=== PATIENT | male | born 1985 | race African-American/Black ===

== ENCOUNTER 2019-05-28 08:26 | Emergency (ER) | payer SELFPAY ==
--- NOTE | 2019-05-28 08:49 | ED.ABDPAIN ---
HPI - Abdominal Pain General Chief Complaint: Urogenital-Male <ARSALAN Wilburn Last Filed: 05/28/19 09:42> Stated Complaint: std check <ARSALAN Wilburn Last Filed: 05/28/19 09:42> Time Seen by Provider: 05/28/19 08:27 <ARSALAN Wilburn Last Filed: 05/28/19 09:42> Source: patient <ARSALAN Wilburn Last Filed: 05/28/19 09:42> Mode of arrival: ambulatory <ASRALAN Wilburn Last Filed: 05/28/19 09:42> Limitations: no limitations <ARSALAN Wilburn Last Filed: 05/28/19 09:42> History of Present Illness HPI narrative: Patient is a 33-year-old male who presents to emergency department for evaluation of sores to the tip of the penis that he noticed in the last day would like to be tested and treated for STDs denies history of STDs or similar occurrence in the past denies any pain or other complaints <ARSALAN Wilburn Last Filed: 05/28/19 09:42> Related Data Home Medications: Home Medications Medication Instructions Recorded Confirmed No Home Medications 05/28/19 05/28/19 <ARSALAN Wilburn Last Filed: 05/28/19 09:42> Allergies/Adverse Reactions: Allergies Allergy/AdvReac Type Severity Reaction Status Date / Time No Known Allergies Allergy Mild Verified 05/28/19 09:04 <ARSALAN Wilburn Last Filed: 05/28/19 09:42> Review of Systems Review of Systems: Narrative: CONSTITUTIONAL: Denies fever, chills, or sweats. EYES: Denies redness, or discharge. ENT: Denies rhinorrhea, congestion, sore throat, or otalgia. GASTROINTESTINAL: Denies abdominal pain, nausea, vomiting, or diarrhea. GENITOURINARY: Denies dysuria or hematuria. SKIN: Denies itching. MUSCULOSKELETAL: Denies back pain, joint pain, or myalgia. <ARSALAN Wilburn Last Filed: 05/28/19 09:42> Exam Narrative: Exam Narrative: GENERAL: Well-appearing, well-nourished, and in no acute distress. HEAD: Normocephalic, atraumatic. EYES: PERRLA and EOMI. ENT: Nares clear, no rhinorrhea or epistaxis. Mucous membranes moist. EXTREMITIES: Normal range of motion. No edema. SKIN: Warm. A few small bumps to the head of the penis noted NEURO: No focal deficits. Alert and oriented x3. PSYCH: Normal mood and affect. <ARSALAN Wilburn Last Filed: 05/28/19 09:42> Course Course Emergency Course: Patient in the room in no distress aware of case findings treatment plan and diagnosis agreeing to follow-up as directed <ARSALAN Wilburn Last Filed: 05/28/19 09:42> Vital Signs Vital signs: Vital Signs Temperature 36.4 C L 05/28/19 09:01 Pulse Rate 92 05/28/19 09:01 Respiratory Rate 16 05/28/19 09:01 Blood Pressure 158/99 H 05/28/19 09:01 Pulse Oximetry 100 05/28/19 09:01 Temperature 36.7 C 05/28/19 10:24 Pulse Rate 89 05/28/19 10:24 Respiratory Rate 16 05/28/19 10:24 Blood Pressure 151/89 H 05/28/19 10:24 Pulse Oximetry 97 05/28/19 10:24 <Devon Pollard PA-C - Last Filed: 05/28/19 09:42> Vital Signs Temperature 36.4 C L 05/28/19 09:01 Pulse Rate 92 05/28/19 09:01 Respiratory Rate 16 05/28/19 09:01 Blood Pressure 158/99 H 05/28/19 09:01 Pulse Oximetry 100 05/28/19 09:01 Temperature 36.7 C 05/28/19 10:24 Pulse Rate 89 05/28/19 10:24 Respiratory Rate 16 05/28/19 10:24 Blood Pressure 151/89 H 05/28/19 10:24 Pulse Oximetry 97 05/28/19 10:24 <Gwendolyn Moreno MD - Last Filed: 05/28/19 17:33> MDM - Abdominal Pain MDM Narrative Medical decision making narrative: Patient with nonspecific rash will be referred to primary care for further evaluation. Cultures were taken <ARSALAN Wilburn Last Filed: 05/28/19 09:42> Lab Data Labs: Lab Results 05/28/19 05/28/19 Range/Units 08:47 08:47 Urine Color Yellow (Yellow) Urine Appearance Clear (Clear) Urine pH 6.0 (5.0-9.0) Ur Specific [place] 1.015 (1.
[2019-05-28 09:01] VITALS: BP 158/99; PULSE 92; RESP 16; TEMP 36.4; O2SAT 100
[2019-05-28 09:26] LABS: Add Urine Microscopic? YES; Appearance Urine Clear (Clear); Bilirubin Urine Negative (Negative); Blood Urine 1+ (Negative); Color Urine Yellow (Yellow); Glucose Urine UA Negative (Negative); Ketones Urine Negative (Negative); Leukocyte Esterase Ur Negative LEU/UL (Negative); Mucus Urine Rare /lpf; Nitrate Urine Negative (Negative); Protein Urine Negative (Negative); RBC Urine 0-2 /hpf (0-2); Specific Grav Ur 1.015 (1.001-1.035); Urobilinogen Urine Negative mg/dL (<2.0); WBC Urine 0-3 /hpf
[2019-05-28] MEDS: cefTRIAXone 250 MG VIAL IM (09:27)
[2019-05-28] MEDS: AZITHROMYCIN 250 MG TABLET 1000 MG PO (09:27)
[2019-05-28 10:24] VITALS: BP 151/89; PULSE 89; RESP 16; TEMP 36.7; O2SAT 97
== END 2019-05-28 10:26 | disposition home or self-care (01) ==
LOC: ANHED 09:25
PROVIDERS: Emergency Medicine Emergency Medical Services; Emergency Provider Emergency Medicine
DX: N34.2 Other urethritis (principal)
CPT/HCPCS: 81001; 87491; 87591; 96372; 99283; A9270; J0696

== ENCOUNTER 2021-01-08 08:13 | Emergency (ER) | payer BC, SELFPAY ==
[2021-01-08 08:24] VITALS: BP 155/111; PULSE 101; RESP 16; TEMP 36.6; O2SAT 98
[2021-01-08 08:27] VITALS: BP 155/111; PULSE 101; RESP 16; TEMP 36.6; O2SAT 98
--- NOTE | 2021-01-08 08:28 | ED.LOWEXIN ---
HPI - Extremity Injury (Lower) General Chief Complaint: Extremity Injury, Lower Stated Complaint: gout Time Seen by Provider: 01/08/21 08:29 Source: patient Mode of arrival: ambulatory Limitations: no limitations History of Present Illness HPI Narrative: Amari Finnegan is a 35 yo male with a PMH of hypertension, gout, GERD, who comes to [facility] with pain in his right ankle. He states that the symptoms are exactly like his usual gout flareups and he has not been taking his allopurinol preventatively. He also is not taking his blood pressure medication regularly we had a discussion about the effect of blood pressure on his organs and the reason he is on maintenance allopurinol Related Data Home Medications Medication Instructions Recorded Confirmed allopurinol 100 mg PO BID 01/08/21 01/08/21 amlodipine 10 mg PO DAILY 01/08/21 01/08/21 atorvastatin 20 mg PO DAILY 01/08/21 01/08/21 famotidine 20 mg PO BID 01/08/21 01/08/21 hydrochlorothiazide 12.5 mg PO DAILY 01/08/21 01/08/21 losartan 100 mg PO DAILY 01/08/21 01/08/21 Allergies Allergy/AdvReac Type Severity Reaction Status Date / Time No Known Allergies Allergy Mild Verified 05/28/19 09:04 Review of Systems Review of Systems: CONSTITUTIONAL: Denies fever, chills, sweats. EYES: Denies visual changes, redness, discharge. ENT: Denies rhinorrhea, congestion, sore throat, otalgia. CARDIOVASCULAR: Denies chest pain, palpitations, edema. RESPIRATORY: Denies dyspnea, wheezing, cough GASTROINTESTINAL: Denies abdominal pain, nausea, vomiting, diarrhea. GENITOURINARY: Denies dysuria, hematuria, abnormal discharge SKIN: Denies rash or itching. NEUROLOGIC: Denies numbness, or focal weakness. PSYCHIATRIC: Denies anxiety or depression. Right foot pain PMFSH Past Medical History Medical History (Updated 01/08/21 @ 08:42 by Stacie Dave CNP) GERD (gastroesophageal reflux disease) Gout Hypertension Family History Family History (Updated 01/08/21 @ 08:37 by Stacie Dave CNP) Other Hypertension Social History Social History (Updated 01/08/21 @ 08:38 by Stacie Dave CNP) Smoking status: Never smoker Alcohol intake: current Alcohol use details: Drinks a shot after work Comments At time of signature, I agree with nursing past medical, surgical, social and family history. There is no relevant family history pertinent to the presenting complaint. Exam Narrative: GENERAL: This is a well-nourished, well-developed patient, in mild distress. HEAD: normocephalic, atraumatic. EYES: Sclera clear/white. Vision is grossly intact. EARS: External ears normal, Hearing grossly intact. NOSE: External nose normal without nasal discharge, nares without redness, no rhinorrhea. THROAT: Mucous membranes moist, NECK: Neck supple, CARDIOVASCULAR: Regular rate and rhythm without murmurs, gallops, or rubs. RESPIRATORY: Clear to auscultation. Breath sounds equal bilaterally. No wheezes, rales, or rhonchi. GASTROINTESTINAL: Abdomen soft, SKIN: warm, intact with no suspicious lesions or rash, good texture and turgor. NEURO: awake, alert, and oriented to person, place and time. There were no obvious focal neurologic abnormalities. Steady gait EXTREMITIES: Normal range of motion. Right ankle pain particularly in the medial side running to the back of ankle BACK: Nontender without deformity Course Course Emergency Course: [facility] will start on colchicine and discussed continued use of allopurinol and restarting his blood pressure medications Vital Signs Vital signs: Vital Signs Temperature 97.9 F 01/08/21 08:24 Pulse Rate 101 H 01/08/21 08:24 Respiratory Rate 16 01/08/21 08:24 Blood Pressure 155/111 H 01/08/21 08:24 Pulse Oximetry 98 01/08/21 08:24 Temperature 97.9 F 01/08/21 08:27 Pulse Rate 101 H 01/08/21 08:27 Respiratory Rate 16 01/08/21 08:27 Blood Pressure 155/111 H 01/08/21 08:27 P
== END 2021-01-08 08:48 | disposition home or self-care (01) ==
PROVIDERS: Emergency Provider Nurse Practitioner; PCP Family Medicine
DX: M10.9 Gout, unspecified (principal); K21.9 Gastro-esophageal reflux disease without esophagitis; I10 Essential (primary) hypertension
CPT/HCPCS: 99213; G0463

== ENCOUNTER 2021-08-19 20:27 | Observation (INO) | payer BC, SELFPAY ==
--- NOTE | ~2021-08-19 | XR_ITS ---
EXAMINATION: XR chest 2V 08/19/2021 20:49 INDICATION: Right-sided chest pain. Hypertension. PROCEDURE: 2 view chest COMPARISON: No prior studies for comparison. FINDINGS: The lungs are clear. The cardiomediastinal silhouette is within normal limits. There are no pleural effusions. There is no pneumothorax suspected. IMPRESSION: 1: NO ACUTE CARDIOPULMONARY DISEASE. Reviewed, dictated and finalized at location A.
--- NOTE | 2021-08-19 20:29 | ECG_ITS ---
Measurements Intervals [place] Rate: 85 P: 64 AL: 145 QRS: 51 QRSD: 97 T: 35 QT: 360 QTc: 429 Interpretive Statements SINUS RHYTHM NORMAL ECG Electronically Signed On 08-19-2021 20:41:46 CDT by Nabor Rodríguez D.O.
[2021-08-19 20:36] VITALS: BP 211/117; PULSE 78; RESP 18; TEMP 36.6; O2SAT 100
[2021-08-19 21:07] VITALS: BP 199/113; PULSE 89; RESP 20; O2SAT 100
[2021-08-19 21:09] LABS: Basophils Absolute Auto 0.1 K/mm3 (0.0-0.1); Basophils Percent Auto 0.5 % (0.2-1.2); Eosinophils Absolute Auto 0.5 K/mm3 (0-0.3); Eosinophils Percent Auto 4.6 % (0-4.4); Hematocrit 44.7 % (42.0-52.0); Hemoglobin 15.2 g/dL (14.0-18.0); Immature Granulocyte Absolute 0.03 K/mm3 (0.00-0.031); Immature Granulocyte Percent A 0.3 % (0-0.5); Lymphocytes Absolute Auto 2.31 K/mm3 (0.9-3.2); Mean Corpuscular Hemoglobin 30.6 pg (26-34); Mean Corpuscular Volume 90.1 fl (80-100); Mean Platelet Volume 10.7 fl (7.4-10.4); Monocytes Absolute Auto 0.9 K/mm3 (0.1-0.6); Monocytes Percent Auto 8.4 % (2.6-8.5); Neutrophils Absolute Auto 6.8 K/mm3 (1.3-6.7); Neutrophils Percent Auto 64.2 % (45.5-73.1); Platelet Count Result 248 k/mm3 (150-375); Red Blood Count 4.96 M/mm3 (4.6-6.20); Red Cell Distribution Width 13.8 % (11.5-14.5); White Blood Count 10.5 K/mm3 (4.5-10.0)
[2021-08-19 21:19] LABS: Alanine Aminotransferase 38 U/L (6-50); Albumin Level 4.5 g/dL (3.5-5.1); Alkaline Phosphatase 88 U/L (38-126); Anion Gap 5 mmol/L (8-16); Aspartate Amino Transferase 48 U/L (17-59); Bilirubin,Total 0.4 mg/dL (0.2-1.3); Blood Urea Nitrogen 16 mg/dL (9-20); Carbon Dioxide 30 mmol/L (22-30); Chloride 102 mmol/L (98-107); Estimated CRCL calculation 92 ml/min; Estimated Glomerular Filt Rate > 60; Glucose 117 mg/dL (65-110); Lipase 78 U/L (23-300); Potassium 4.4 mmol/L (3.4-5.0); Sodium 137 mmol/L (137-145)
[2021-08-19 21:20] LABS: INR 1.1; Prothrombin Time 14.1 Seconds (11.1-14.7)
[2021-08-19 21:21] LABS: Partial Thromboplastin Time 27.4 SECONDS (22.3-36.8)
[2021-08-19 21:33] LABS: Troponin I 0.051 ng/mL (0.000-0.034)
[2021-08-19] MEDS: ASPIRIN 81 MG CHEWABLE TABLET 324 MG PO (21:55)
[2021-08-19] MEDS: NITROGLYCERIN SL 0.4 MG TABLET SUBLINGUAL (21:55)
--- NOTE | 2021-08-19 22:05 | ED.CHESTPAIN ---
HPI - Chest Pain General Chief Complaint: Chest Pain Stated Complaint: chest pain Time Seen by Provider: 08/19/21 21:00 History of Present Illness HPI narrative: Patient is a 36-year-old male who presents ER with right-sided chest pain. Aching. No radiation to neck or shoulder. Ongoing for 1 day. Worsening with twisting. Was seen by an urgent care physician who prescribed him prednisone but has not yet taken it today. No alleviating factors other than rest. Does not feel it is worsened by exertion only by specific movements of his upper body. No history of heart disease. Patient with elevated blood pressures in the ER. Reports has history of hypertension has been noncompliant with medication. He had to have medications refilled today but has not taken them. Related Data Home Medications Medication Instructions Recorded Confirmed allopurinol 100 mg tablet 100 mg PO BID 01/08/21 08/20/21 amlodipine 10 mg tablet 10 mg PO DAILY 01/08/21 08/20/21 atorvastatin 20 mg tablet 20 mg PO DAILY 01/08/21 08/20/21 famotidine 20 mg tablet 20 mg PO BID 01/08/21 08/20/21 losartan 100 mg tablet 100 mg PO DAILY 01/08/21 08/20/21 ergocalciferol (vitamin D2) 1,250 1 cap PO WEEKLY 08/20/21 08/20/21 mcg (50,000 unit) capsule metoprolol tartrate 50 mg tablet 50 mg PO BID 08/20/21 08/20/21 Allergies Allergy/AdvReac Type Severity Reaction Status Date / Time No Known Allergies Allergy Mild Verified 08/19/21 21:06 Review of Systems Review of Systems: All systems reviewed & are unremarkable except as noted in HPI and below Constitutional: Constitutional: Denies chills, Denies fatigue and Denies fever(s) ENT: Denies nasal congestion and Denies sore throat Cardiovascular: Cardiovascular: Reports chest pain, Denies rapid heart rate and Denies radiating jaw, neck or arm pain Respiratory: Respiratory: Denies chest congestion, Denies cough and Denies dyspnea Gastrointestinal: Gastrointestinal: Denies abdominal pain, Denies nausea and Denies vomiting Musculoskeletal: Musculoskeletal: Denies myalgias, Denies arthralgias and Denies joint swelling Neurologic: Denies headache(s), Denies focal weakness and Denies numbness [facility] Past Medical History Medical History (Updated 08/19/21 @ 22:15 by Javi Estrella MD) GERD (gastroesophageal reflux disease) Gout Hypertension Surgical History Surgical History (Updated 08/19/21 @ 22:12 by Javi Estrella MD) No pertinent past surgical history Family History Family History (Updated 01/08/21 @ 08:37 by Stacie Dave CNP) Other Hypertension Social History Social History (Updated 01/08/21 @ 08:38 by Stacie Dave CNP) Smoking status: Never smoker Alcohol intake: current Drinks per week: 4 Alcohol use details: Drinks a shot after work Substance use: never Spiritual care concerns: No Exam Narrative: GENERAL: Well-appearing, well-nourished, and in no acute distress. HEAD: Normocephalic, atraumatic. ENT: Mucous membranes moist. CHEST: Clear to auscultation. No respiratory distress. No reproducible chest wall tenderness. HEART: Regular rate and rhythm. Normal peripheral pulses. ABDOMEN: Soft, nontender, nondistended, normal active bowel sounds. EXTREMITIES: Normal range of motion. No edema. SKIN: Warm, dry, no rash. NEURO: Alert and oriented x3. PSYCH: Normal mood and affect. Course Course Emergency Course: Patient resting comfortably. Informed of results. Nitroglycerin did not affect patient's chest discomfort but did drop blood pressure. Admit to hospitalist service and patient will receive one-time dose of Lovenox. I discussed case with Dr. House with cardiology, would recommend giving a dose of Coreg 3.125 mg this evening. Patient did receive aspirin. Vital Signs Vital signs: Vital Signs Temperature 97.8 F 08/19/21 20:36 Pulse Rate 78 08/19/21 20:36 Respiratory Rate 18 08/19/21 20:36 Blood Pressure 211/117 H 08/19/21 20:36
[2021-08-19 22:55] VITALS: BP 170/113; PULSE 82; RESP 19; O2SAT 100
[2021-08-19] MEDS: ENOXAPARIN 100 MG/ML SYRINGE 112 MG SUB-Q (22:56)
[2021-08-19] MEDS: carvediloL 3.125 MG TABLET PO (22:56)
--- NOTE | 2021-08-19 23:14 | PM.IMHP ---
H&P: HPI History of Present Illness Date/Time: 08/19/21 23:14 Chief Complaint: chest pain Narrative: 36-year-old male with past medical history significant for hypertension, off medications for the last month, is presenting with right-sided chest pain that feels achy and does not radiate. States he saw an urgent care physician who prescribed prednisone but he did not take this. He was told that his chest was simply inflamed. The chest pain continued and did not resolve at rest. He denies associated shortness of breath. No nausea vomiting or diarrhea. No fevers or chills. He states the reason he stopped taking his medications was because they made him feel weak and sometimes when he would get up in the morning he would feel lightheaded and fatigued. He had a hard time completing his day at work due to how fatigued the medications made him. He states he was on 3 pills but cannot remember the names of them. He states he can call his mom tomorrow and she can tell us the names of the medications he was supposed to be taking. He is agreeable to restarting blood pressure pills, but not does not want to be on the 1 that made him feel fatigued. Review of Systems Review of Systems: Twelve point review systems was done and was negative except as noted in HPI PMFSH Past Medical History Medical History (Updated 08/19/21 @ 22:15 by Javi Estrella MD) GERD (gastroesophageal reflux disease) Gout Hypertension Surgical History Surgical History (Updated 08/19/21 @ 22:12 by Javi Estrella MD) No pertinent past surgical history Family History Family History (Updated 01/08/21 @ 08:37 by Stacie Dave CNP) Other Hypertension Social History Social History (Updated 01/08/21 @ 08:38 by Stacie Dave CNP) Smoking status: Never smoker Alcohol intake: current Drinks per week: 4 Alcohol use details: Drinks a shot after work Substance use: never Spiritual care concerns: No Meds Home Medications and Allergies Home Medications Medication Instructions Recorded Confirmed Type allopurinol 100 mg tablet 100 mg PO BID 01/08/21 08/20/21 History amlodipine 10 mg tablet 10 mg PO DAILY 01/08/21 08/20/21 History atorvastatin 20 mg tablet 20 mg PO DAILY 01/08/21 08/20/21 History famotidine 20 mg tablet 20 mg PO BID 01/08/21 08/20/21 History losartan 100 mg tablet 100 mg PO DAILY 01/08/21 08/20/21 History ergocalciferol (vitamin D2) 1,250 1 cap PO WEEKLY 08/20/21 08/20/21 History mcg (50,000 unit) capsule metoprolol tartrate 50 mg tablet 50 mg PO BID 08/20/21 08/20/21 History Allergies Allergy/AdvReac Type Severity Reaction Status Date / Time No Known Allergies Allergy Mild Verified 08/19/21 21:06 Vital Signs Vital Signs - 24 hr 08/19/21 20:36 08/19/21 21:07 08/19/21 21:07 Temperature 97.8 F Pulse Rate 78 89 Respiratory Rate 18 20 Blood Pressure 211/117 H 199/113 H Pulse Oximetry 100 100 100 Oxygen Delivery Room Air Room Air 08/19/21 22:55 Temperature Pulse Rate 82 Respiratory Rate 19 Blood Pressure 170/113 H Pulse Oximetry 100 Oxygen Delivery Exam Narrative: General: Patient resting comfortably in bed, no acute distress HEENT: Atraumatic, normocephalic, mucous membranes moist CV: Regular rate and rhythm, S1, S2, no murmurs rubs or gallops noted Lungs: Clear to auscultation bilaterally, no rales or crackles noted, no wheezes, good air entry Abdomen: Soft, nontender, nondistended Extremities: Normal to inspection, no edema noted Skin: No rashes noted, no lesions or wounds seen Psych: Euthymic, normal affect Neuro: Cranial nerves 2-12 grossly intact, strength 5/5 upper and lower extremities noted H&P: Results Labs Labs: Short CBC 08/19/21 Range/Units 21:03 WBC 10.5 H (4.5-10.0) K/mm3 Hgb 15.2 (14.0-18.0) g/dL Hct 44.7 (42.0-52.0) % Plt Count 248 (150-375) k/mm3 [facility] 08/19/21 21:03 Sodium 137 Potassium 4.4 Chlorid
[2021-08-19 23:55] VITALS: BP 187/109; PULSE 83; RESP 16; TEMP 36.6; O2SAT 100; BMI 44.0
[2021-08-20] VITALS (18 sets, daily range): BP systolic 157–182; BP diastolic 93–117; PULSE 69–82; RESP 16–18; TEMP 36.4–37.1; O2SAT 97–100
--- NOTE | 2021-08-20 00:08 | ADMGEN ---
This patient, Amari Finnegan, was admitted to IMU Room 210-01. Patient/family oriented to hospital policies and general routines including ID bracelet, bed and alarms, visiting hours, pain management, procedures, bathroom and other care routines, personal items, smoking policy, room service/diet, and visiting hours. Information on how to activate the Rapid Response Team has been discussed. Patient/Family are encouraged to report perceived risks to care and to ask questions if they do not understand what they are told or what they should do.
[2021-08-20 01:48] LABS: Troponin I 0.064 ng/mL (0.000-0.034)
[2021-08-20] MEDS: ONDANSETRON INJ 4 MG/2 ML VIAL IV PUSH (02:34)
[2021-08-20 03:28] LABS: Troponin I 0.055 ng/mL (0.000-0.034)
--- NOTE | 2021-08-20 06:00 | ECHO_ITS ---
Patient Info Name: Amari Finnegan Age: 36 years : 1985 Gender: Male Ht: 67 in Wt: 281 lbs BSA: 2.52 m2 HR: 75 bpm BP: 157 / 93 mmHg Heart Rhythm: Sinus Rhythm Technical Quality: Fair Exam Date: 08/20/2021 7:32 AM Exam Location: [facility] Patient Status: Outpatient Admit Date: 08/19/2021 Staff Ordering Physician: Javi Estrella MD Informatica: Michelle Martin RDCS Attending Provider: Lakshmi Castelan DO Referring Physician: Sameer PERDEU; Exam Type: CA echo dop color flow w con Study Info Indications - cp Complete two-dimensional, color flow and Doppler transthoracic echocardiogram is performed with contrast to opacify the left ventricle and to improve the deliniation of the left ventricle endocardial borders. Contrast/Agitated Saline Contrast/Ag. Saline: Definity Amount: 4.00 ml Administered By: Michelle Martin RDCS Existing IV Access: Yes IV Access Condition: patent with no signs of infiltration Summary 1. Left ventricular chamber dimension is normal. 2. Definity contrast administered improved wall motion interpretation. 3. Left ventricular systolic function is normal, estimated at 60-65%. 4. The left ventricular diastolic function is normal. 5. E/e' 9 is minimally elevated. 6. No pulmonary hypertension, estimated pulmonary arterial systolic pressure is 18 mmHg. 7. There is trace pulmonic regurgitation. Left Ventricle E/e' 9 is minimally elevated. Definity contrast administered improved wall motion interpretation. Left ventricular chamber dimension is normal. Left ventricular systolic function is normal, estimated at 60-65%. The left ventricular diastolic function is normal. Right Ventricle Right ventricular systolic function is normal and with normal TAPSE 2.2 cm. Right ventricular chamber dimension is normal. Left Atria Left atrial chamber dimension is normal. Right Atria Right atrial chamber dimension is normal. Aortic Valve The aortic valve is trileaflet. There is no aortic valve stenosis. There is no aortic valve regurgitation. Pulmonic Valve There is trace pulmonic regurgitation. Mitral Valve There is no mitral valve stenosis. There is no mitral valve regurgitation. Tricuspid Valve There is no tricuspid valve regurgitation. No pulmonary hypertension, estimated pulmonary arterial systolic pressure is 18 mmHg. Pericardium/Pleural There is no pericardial effusion. Inferior Vena Cava Normal inferior vena cava with >50% collapse upon inspiration consistent with normal right atrial pressure, 5 mmHg. Aorta The aortic root size at the sinus of Valsalva is normal. Left Ventricular Outflow Tract Name Value Normal LVOT 2D LVOT Diameter 1.99 cm LVOT Doppler LVOT Peak Gradient 2 mmHg LVOT Mean Gradient 1 mmHg LVOT VTI 14.21 cm LVOT VTI/AV VTI Ratio 0.64 LVOT Stroke Volume 44.06 ml LVOT CO 3.00 l/min
[2021-08-20 07:52] LABS: Basophils Percent Auto 0.2 % (0.2-1.2); Eosinophils Absolute Auto 0.4 K/mm3 (0-0.3); Eosinophils Percent Auto 4.9 % (0-4.4); Hematocrit 42.6 % (42.0-52.0); Hemoglobin 14.4 g/dL (14.0-18.0); Immature Granulocyte Absolute 0.02 K/mm3 (0.00-0.031); Immature Granulocyte Percent A 0.2 % (0-0.5); Lymphocytes Absolute Auto 2.68 K/mm3 (0.9-3.2); Mean Corpuscular HGB Conc 33.8 g/dl (32-36); Mean Corpuscular Hemoglobin 30.6 pg (26-34); Mean Corpuscular Volume 90.4 fl (80-100); Mean Platelet Volume 10.8 fl (7.4-10.4); Monocytes Absolute Auto 0.7 K/mm3 (0.1-0.6); Monocytes Percent Auto 9.1 % (2.6-8.5); Neutrophils Absolute Auto 4.3 K/mm3 (1.3-6.7); Neutrophils Percent Auto 52.6 % (45.5-73.1); Platelet Count Result 218 k/mm3 (150-375); Red Blood Count 4.71 M/mm3 (4.6-6.20); Red Cell Distribution Width 14.1 % (11.5-14.5); White Blood Count 8.1 K/mm3 (4.5-10.0)
[2021-08-20 07:59] LABS: Alanine Aminotransferase 32 U/L (6-50); Albumin Level 3.6 g/dL (3.5-5.1); Alkaline Phosphatase 78 U/L (38-126); Anion Gap 6 mmol/L (8-16); Aspartate Amino Transferase 31 U/L (17-59); Bilirubin,Total 0.4 mg/dL (0.2-1.3); Blood Urea Nitrogen 14 mg/dL (9-20); Calcium 8.5 mg/dL (8.4-10.2); Carbon Dioxide 26 mmol/L (22-30); Chloride 105 mmol/L (98-107); Estimated CRCL calculation 107 ml/min; Estimated Glomerular Filt Rate > 60; Glucose 118 mg/dL (65-110); Sodium 137 mmol/L (137-145)
[2021-08-20] MEDS: PERFLUTREN LIPID MICROSPHERES 1.5 ML VIAL DILUTED TO 10 ML TOTAL VOLUME IV PUSH (08:15)
--- NOTE | 2021-08-20 08:16 | IVDEFINITY ---
Prior to administration of IV Definity the patient was educated on the risks and benefits of the imaging enhancing agent including potential adverse side effects. The patient verbalized understanding. Allergies were verified. No exclusion criteria were identified and at least one of the following inclusion criteria were met: 1) physician request, 2) patient technically difficult to image (per the [place] [employer]ocardi[employer] guidelines of two or more segments not discernable within the apical view), or 3) questionable left ventricular function. ?
[2021-08-20] MEDS: allopurinoL 100 MG TABLET PO ×2 (10:09→17:35)
[2021-08-20] MEDS: amLODIPine BESYLATE 5 MG TABLET 10 MG PO (10:09)
[2021-08-20] MEDS: ATORVASTATIN 20 MG TABLET PO (10:09)
[2021-08-20] MEDS: LOSARTAN POTASSIUM 100 MG TABLET PO (10:09)
[2021-08-20] MEDS: FAMOTIDINE 20 MG TABLET PO ×2 (10:09→20:30)
--- NOTE | 2021-08-20 10:11 | PM.CNCAR ---
Assessment and Plan Assessment and plan (1) Elevated troponin: Code(s): R77.8 - Other specified abnormalities of plasma proteins Status: Acute (2) Hypertension, uncontrolled: Code(s): I10 - Essential (primary) hypertension Status: Acute (3) Chest pain: Code(s): R07.9 - Chest pain, unspecified Status: Acute Plan 36-year-old man with significant hypertension presents with right-sided chest pain that in my opinion is clearly musculoskeletal in nature. No features of this symptoms suggest myocardial ischemia. Because of this pain and because of his noncompliance with medication his blood pressure was exceedingly high as well at the time of admission. Troponin levels were sampled and are not indicative of acute coronary syndrome. His calcium channel arvin and ARB have been resumed. I would recommend trying to resume some beta-arvin therapy in the form of atenolol since he has been complaining of excessive fatigue with metoprolol. Hopefully a non labile filling beta-arvin will be better tolerated. I do not have any additional cardiac recommendations at this time. Leroy Guy MD [facility] History of Present Illness History of Present Illness Consult date/time: 08/20/21 10:11 Consult reason: chest pain Reason For Visit: chest pain,elevated BP, elevated troponin Narrative: This is a 36-year-old gentleman I am seeing this morning at the request of the hospitalist because of chest pain as well as hypertension and troponin levels that are out of normal range. He does not have any history of specific cardiac problems and came to this hospital emergency room last evening because of some chest pain. He describes pain that began about 48 hours before arrival with moderate to severe pain in the right precordium and the region of the right shoulder. He states that changing body positions and moving his shoulder would significantly aggravate this symptom. He was in relatively severe pain with this yesterday evening so he went to an urgent care center and was sent to the emergency department. He was evaluated in the emergency department and admitted to the hospital for this reason and because his blood pressure was markedly elevated. The patient does have hypertension and he has been prescribed to take amlodipine, losartan and metoprolol. He states that his blood pressure medicines were making him feel weak and fatigued and so he has not been taking them for longer than a month. Systolic blood pressure was extremely high probably for this reason and because he was in pain yesterday in the emergency department. It looks like his amlodipine and losartan have been resumed but the beta-arvin has not been at this time. He is in sinus rhythm with a heart rate 70-80 and currently has systolic blood pressures in the 160s and diastolic pressures between 101 110. He is feeling better this morning and offers no other complaints. 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 He is otherwise comfortable this morning and offers no complaints. His troponin levels were sampled x3 sets and are 0.05 and flat. His ECG is unremarkable. Review of Systems Constitutional: Constitutional: Reports lethargy Eyes: Eyes: Reports no additional eye complaints ENT: Reports system reviewed and no additional complaints, except as documented Cardiovascular: Cardiovascular: Reports no additional cardiovascular complaints Respiratory: Respiratory: Reports no additional respiratory complaints Gastrointestinal: Gastrointestinal: Reports no additional gastrointestinal complaints Musculoskeletal: Musculoskeletal: Reports as per HPI Integumentary/Breasts: Skin/Breast: Reports system reviewed and no additional complaints, except as docu Neurologic: Reports system reviewed and no additional complaints, except as documented Endocrine: Endocrine: Reports no additional endocrine complaints Hematologic/Lymphatic: Hematologic/Lymph
[2021-08-20] MEDS: atenoloL 50 MG TABLET PO (10:56)
[2021-08-20] MEDS: MORPHINE SULFATE (*CRX) 4 MG/ML INJ IV PUSH ×4 (11:03→22:21)
[2021-08-20] MEDS: COLCHICINE 0.6 MG TABLET 1.2 MG PO (13:50)
[2021-08-20] MEDS: COLCHICINE 0.6 MG TABLET PO (15:17)
[2021-08-20] MEDS: predniSONE 20 MG TABLET 40 MG PO (18:45)
--- NOTE | 2021-08-20 20:09 | PM.DS ---
DS: Admitting Diagnosis Discharge Date 08/20/21 Admitting Diagnosis Chest Pain DS: Discharge Diagnosis Discharge Diagnosis (1) Chest pain: Code(s): R07.9 - Chest pain, unspecified Status: Acute Assessment and Plan: Patient troponin flat. Cardiology consulted with recommendation of atenolol 50 mg, losartan 100 mg daily, amlodipine 10 mg daily. This morning patient reporting he had pain on the right side that went up to his shoulder and this pain is reproducible on exam, so this is likely musculoskeletal in etiology. -Continue amlodipine, atenolol and losartan for discharge -Lidocaine patch to right chest near shoulder . (2) Hypertension, uncontrolled: Code(s): I10 - Essential (primary) hypertension Status: Acute Assessment and Plan: Cardiology consulted and started atenolol. Will continue atenolol, carvedilol and amlodipine for discharge. Patient will need to follow up with PCP outpatient within a week of discharge. (3) Elevated troponin: Code(s): R77.8 - Other specified abnormalities of plasma proteins Status: Acute Assessment and Plan: Troponin flat and per Cardiology are not indicative of ACS. (4) Gout: Code(s): M10.9 - Gout, unspecified Status: Acute Assessment and Plan: Patient reported history of gout to nursing and reported he was having similar pain. Colchicine given as patient reported this worked for him in the past. Gave Colchicine 1.2 mg and then an hour later 0.6 mg x 1. Patient continued to have pain, so prednisone was given x1. Patient will need to follow up with PCP early next week. DS: Summary Hospital Course Reason for hospitalization: Elevated blood pressure Hospital Course: 36M with a past medical history of hypertension who presented to the ED with chest pain. Patient was admitted reporting right sided chest pain and found to have elevated BP of 211/117. The chest pain was documented to be right sided chest pain on admission and the patient also reported right sided chest pain the next morning with radiation to his right shoulder that was reproducible on exam. Patient denied shortness of breath, nausea, vomiting, headache, vision changes on the day of discharge. Lidocaine patch was started for the chest pain. Cardiology was consulted and recommend atenolol, losartan and amlodipine. The patient had previously been on amlodipine, metoprolol and hydrochlorothiazide. Patient discharged to home with atenolol, amlodipine and losartan. Time Spent with Patient Time attestation: Total time spent providing and/or coordinating discharge services: Exam Narrative: GENERAL: NAD, cooperative HEENT: Normocephalic, atraumatic, anicteric, nares clear, oropharynx moist and clear, dentition normal NECK: Supple CV: Normal S1, S2, RRR, No MRG RESP: CTAB, Normal work of breathing. Chest: TTP over right pectoralis muscle extending up to right shoulder near AC joint. EXTREMITIES: Warm and well perfused, no clubbing, cyanosis. SKIN: warm, dry and intact. NEURO: CN 2-12 grossly intact. DS: Data Data Completed and Pending Labs on day of discharge: Labs from last 24 hours 08/20/21 08/20/21 08/20/21 07:34 07:34 02:33 WBC 8.1 RBC 4.71 Hgb 14.4 Hct 42.6 MCV 90.4 MCH 30.6 MCHC 33.8 RDW 14.1 Plt Count 218 MPV 10.8 H Immature Gran % (Auto) 0.2 Neut % (Auto) 52.6 Lymph % (Auto) 33.0 [place] % (Auto) 9.1 H Eos % (Auto) 4.9 H Baso % (Auto) 0.2 Lymph # (Auto) 2.68 [place] # (Auto) 0.7 H Eos # (Auto) 0.4 H Baso # (Auto) 0.0 Abs Immat Gran (auto) 0.02 Absolute Neuts (auto) 4.3 Absolute Nucleated RBC 0.0 Nucleated RBC % 0.0 PT INR APTT Sodium 137 Potassium 4.0 Chloride 105 Carbon Dioxide 26 Anion Gap 6 L BUN 14 Creatinine 1.10 Estim Creat Clear Calc 107 Estimated GFR > 60 Glucose 118 H Calcium 8.5 T
--- NOTE | 2021-08-20 21:22 | PC.NURSE ---
Patient has discharge orders as of 2040 this evening. Pt is having a gout flare up in right foot and states he can not go home as he can barely walk . Jenae Montero NP made aware and will hold off on discharge at this time and re-evaluate tomorrow. Pt receiving colchicine for foot, will also order Kpad and lidocaine patch. Order to transfer to [facility] tele received. Will also order physician communication to not lower blood pressure more than 25%.
[2021-08-20] MEDS: LIDOCAINE 5% PATCH 1 PATCH TRANSDERM (22:20)
--- NOTE | 2021-08-20 23:35 | PC.NURSE ---
This patient, Amari Finnegan, was received from [[id number] ] on 08/21/21 at 2335. Patient/family oriented to unit policies and routines
[2021-08-21] VITALS (7 sets, daily range): BP systolic 155–167; BP diastolic 86–96; PULSE 77–85; RESP 14–16; TEMP 36.6–37.2; O2SAT 97–100
[2021-08-21] MEDS: MORPHINE SULFATE (*CRX) 4 MG/ML INJ IV PUSH ×2 (00:34→08:44)
[2021-08-21] MEDS: amLODIPine BESYLATE 5 MG TABLET 10 MG PO (08:46)
[2021-08-21] MEDS: atenoloL 50 MG TABLET PO (08:46)
[2021-08-21] MEDS: FAMOTIDINE 20 MG TABLET PO (08:46)
[2021-08-21] MEDS: ATORVASTATIN 20 MG TABLET PO (08:46)
[2021-08-21] MEDS: LOSARTAN POTASSIUM 100 MG TABLET PO (08:46)
[2021-08-21] MEDS: ERGOCALCIFEROL 50,000 UNIT CAPSULE 50000 UNITS PO (08:46)
[2021-08-21] MEDS: allopurinoL 100 MG TABLET PO (10:49)
== END 2021-08-21 14:40 | disposition home or self-care (01) ==
LOC: ANHED 22:15 → ANHIMU 08-20 00:50 → ANH2MED 08-21 13:32 → ANHIMU 08-25 11:18
PROVIDERS: Admitting Provider Student in an Organized Health Care Education/Training Program; Emergency Provider Emergency Medicine; PCP Family Medicine; Visit Provider Family Medicine
DX: R07.9 Chest pain, unspecified (principal); R77.8 Other specified abnormalities of plasma proteins; I10 Essential (primary) hypertension; M10.9 Gout, unspecified; K21.9 Gastro-esophageal reflux disease without esophagitis; Z91.14 Patient's other noncompliance with medication regimen
CPT/HCPCS: 36415; 71046; 80053; 83690; 84484; 85025; 85610; 85730; 93005; 96372; 96374; 96375; 96376; 99285; A9270; C8929; G0378; G0379; J0131; J1650; J2270; J2405; J7512; Q9957

== ENCOUNTER 2021-12-24 09:17 | Emergency (ER) | payer BC, SELFPAY ==
[2021-12-24 09:29] VITALS: BP 155/118; PULSE 86; RESP 18; TEMP 36.6; O2SAT 100
--- NOTE | 2021-12-24 10:07 | ED.EXTPRO ---
HPI - Extremity Problem General Chief complaint: Extremity Problem,Nontraumatic Stated complaint: Pain in right armpit/chest shooting to neck Time Seen by Provider: 12/24/21 10:02 Source: patient and RN notes reviewed Mode of arrival: ambulatory Limitations: no limitations History of Present Illness HPI Narrative: 36-year-old male presents to the [facility] with right shoulder pain that has been intermittent with certain movements. Patient states he went to open a trailer door and may have pulled a muscle in his chest or shoulder. Had pain last night. Unable to reproduce pain on exam. Has full range of motion of the shoulder. No redness or bruising noted Related Data Home Medications Medication Instructions Recorded Confirmed allopurinol 100 mg tablet 100 mg PO BID 01/08/21 08/20/21 amlodipine 10 mg tablet 10 mg PO DAILY 01/08/21 08/20/21 atorvastatin 20 mg tablet 20 mg PO DAILY 01/08/21 08/20/21 famotidine 20 mg tablet 20 mg PO BID 01/08/21 08/20/21 losartan 100 mg tablet 100 mg PO DAILY 01/08/21 08/20/21 ergocalciferol (vitamin D2) 1,250 1 cap PO WEEKLY 08/20/21 08/20/21 mcg (50,000 unit) capsule Allergies Allergy/AdvReac Type Severity Reaction Status Date / Time No Known Allergies Allergy Mild Verified 08/19/21 21:06 Review of Systems Review of Systems: All systems reviewed & are unremarkable except as noted in HPI and below Constitutional: Constitutional: Reports no additional constitutional complaints, Denies chills and Denies fever(s) Eyes: Eyes: Reports no additional eye complaints ENT: Reports system reviewed and no additional complaints, except as documented Cardiovascular: Cardiovascular: Reports no additional cardiovascular complaints Respiratory: Respiratory: Reports no additional respiratory complaints Gastrointestinal: Gastrointestinal: Reports no additional gastrointestinal complaints Musculoskeletal: Musculoskeletal: Reports as per HPI Integumentary/Breasts: Skin/Breast: Reports system reviewed and no additional complaints, except as docu Neurologic: Reports system reviewed and no additional complaints, except as documented Psychiatric: Psychiatric: Reports no additional psychiatric complaints Allergic/Immunologic: Allergic/Immunologic: Reports no additional allergic/immunologic complaints [facility] Past Medical History Medical History (Updated 12/24/21 @ 18:36 by Trish King APRN) GERD (gastroesophageal reflux disease) Gout Hypertension Surgical History Surgical History No pertinent past surgical history Family History Family History Other Hypertension Social History Social History Smoking status: Never smoker Alcohol intake: current Drinks per week: 4 Alcohol use details: Drinks a shot after work Substance use: never Spiritual care concerns: No Comments At the time of my signature, I reviewed and agree with the nursing past medical, surgical, social, and family history. There is no relevant family history pertinent to the patient complaint. Exam Const: General: healthy appearing, no acute distress and alert Nutritional Appearance: well nourished Orientation/consciousness: patient oriented x3 Limitations: no limitations HENMT: Head: normal to inspection Ears: external ears normal Eyes: General: appearance normal, both eyes and all related structures Pupils: Equal, round and reactive pupils present Neck: Neck: normal visual inspection, no lymphadenopathy and no meningeal signs Chest: Chest palpation & inspection: normal inspection of the chest Resp: Effort & Inspection: normal respiratory effort and no use of accessory muscles Auscultation: clear to auscultation bilaterally, no crackles, no rales, no rhonchi and no wheezes Cardio: Rate: regular rate Rhythm: regular rhythm GI:
== END 2021-12-24 10:13 | disposition home or self-care (01) ==
PROVIDERS: Emergency Provider Nurse Practitioner; PCP Family Medicine
DX: S29.011A Strain of muscle and tendon of front wall of thorax, initial encounter (principal); X58.XXXA Exposure to other specified factors, initial encounter; K21.9 Gastro-esophageal reflux disease without esophagitis; M10.9 Gout, unspecified; I10 Essential (primary) hypertension
CPT/HCPCS: 99213; G0463

== ENCOUNTER 2022-02-14 11:13 | Emergency (ER) | payer BC, SELFPAY ==
[2022-02-14 11:37] VITALS: BP 141/89; PULSE 86; RESP 16; TEMP 36.1; O2SAT 100
--- NOTE | 2022-02-14 11:53 | ED.EXTPRO ---
HPI - Extremity Problem General Chief complaint: Extremity Problem,Nontraumatic Stated complaint: Ankle/Foot Pain Time Seen by Provider: 02/14/22 11:53 Source: patient, RN notes reviewed and old records reviewed Mode of arrival: ambulatory Limitations: no limitations History of Present Illness HPI Narrative: 34-year-old presents to the [facility] with right ankle and foot with since this morning.. Has a history of gout. The patient reports that it feels like he is about to get a gout flare and does not think he can go to work tomorrow. States pain will be so bad he can not walk. Requesting a work note Related Data Home Medications Medication Instructions Recorded Confirmed allopurinol 100 mg tablet 100 mg PO BID 01/08/21 02/14/22 amlodipine 10 mg tablet 10 mg PO DAILY 01/08/21 02/14/22 atorvastatin 20 mg tablet 20 mg PO DAILY 01/08/21 02/14/22 famotidine 20 mg tablet 20 mg PO BID 01/08/21 02/14/22 losartan 100 mg tablet 100 mg PO DAILY 01/08/21 02/14/22 ergocalciferol (vitamin D2) 1,250 1 cap PO WEEKLY 08/20/21 02/14/22 mcg (50,000 unit) capsule Allergies Allergy/AdvReac Type Severity Reaction Status Date / Time No Known Allergies Allergy Mild Verified 08/19/21 21:06 Review of Systems Review of Systems: All systems reviewed & are unremarkable except as noted in HPI and below Constitutional: Constitutional: Reports no additional constitutional complaints, Denies chills and Denies fever(s) Eyes: Eyes: Reports no additional eye complaints ENT: Reports system reviewed and no additional complaints, except as documented Cardiovascular: Cardiovascular: Reports no additional cardiovascular complaints Respiratory: Respiratory: Reports no additional respiratory complaints Gastrointestinal: Gastrointestinal: Reports no additional gastrointestinal complaints Musculoskeletal: Musculoskeletal: Reports as per HPI Integumentary/Breasts: Skin/Breast: Reports system reviewed and no additional complaints, except as docu Neurologic: Reports system reviewed and no additional complaints, except as documented Psychiatric: Psychiatric: Reports no additional psychiatric complaints Allergic/Immunologic: Allergic/Immunologic: Reports no additional allergic/immunologic complaints PMFSH Past Medical History Medical History GERD (gastroesophageal reflux disease) Gout Hypertension Surgical History Surgical History No pertinent past surgical history Family History Family History Other Hypertension Social History Social History Smoking status: Never smoker Alcohol intake: current Drinks per week: 4 Alcohol use details: Drinks a shot after work Substance use: never Spiritual care concerns: No Comments At the time of my signature, I reviewed and agree with the nursing past medical, surgical, social, and family history. There is no relevant family history pertinent to the patient complaint. Exam Const: General: healthy appearing, comfortable, no acute distress, well developed, alert and well nourished Nutritional Appearance: well nourished Orientation/consciousness: patient oriented x3 Limitations: no limitations HENMT: Head: normal to inspection Ears: external ears normal Eyes: General: appearance normal, both eyes and all related structures Pupils: Equal, round and reactive pupils present Neck: Neck: normal visual inspection, full ROM, no lymphadenopathy and no meningeal signs Chest: Chest palpation & inspection: normal inspection of the chest Resp: Effort & Inspection: normal respiratory effort and no use of accessory muscles Auscultation: clear to auscultation bilaterally, no crackles, no rales, no rhonchi and no wheezes Cardio: Rate: regular rate Rhythm: regular rhythm
== END 2022-02-14 12:06 | disposition home or self-care (01) ==
PROVIDERS: Emergency Provider Nurse Practitioner; PCP Family Medicine
DX: M10.9 Gout, unspecified (principal); I10 Essential (primary) hypertension; K21.9 Gastro-esophageal reflux disease without esophagitis
CPT/HCPCS: 99213; G0463

== ENCOUNTER 2022-06-24 16:43 | Emergency (ER) | payer BC, SELFPAY ==
--- NOTE | 2022-06-24 16:53 | ED.GENADULT ---
HPI - General Adult General Chief complaint: Abdominal Pain Stated complaint: abd pain Time Seen by Provider: 06/24/22 16:53 Source: patient, RN notes reviewed and old records reviewed Mode of arrival: ambulatory Limitations: no limitations History of Present Illness HPI narrative: 36-year-old male presents to the [facility] with complaints of an upset stomach for the last couple of days. States today he feels better, wants to go back to work tomorrow however his boss told him he needed a work note. Denies any nausea vomiting or diarrhea. States that he did take some Pepto-Bismol and feels better. Related Data Home Medications Medication Instructions Recorded Confirmed allopurinol 100 mg tablet 100 mg PO BID 01/08/21 02/14/22 amlodipine 10 mg tablet 10 mg PO DAILY 01/08/21 02/14/22 atorvastatin 20 mg tablet 20 mg PO DAILY 01/08/21 02/14/22 losartan 100 mg tablet 100 mg PO DAILY 01/08/21 02/14/22 Allergies Allergy/AdvReac Type Severity Reaction Status Date / Time No Known Allergies Allergy Mild Verified 06/24/22 16:53 Review of Systems Review of Systems: All systems reviewed & are unremarkable except as noted in HPI and below Constitutional: Constitutional: Reports no additional constitutional complaints Eyes: Eyes: Reports no additional eye complaints ENT: Reports system reviewed and no additional complaints, except as documented Cardiovascular: Cardiovascular: Reports no additional cardiovascular complaints, Denies chest pain and Denies dyspnea Respiratory: Respiratory: Reports no additional respiratory complaints, Denies chest congestion, Denies cough and Denies dyspnea Gastrointestinal: Gastrointestinal: Reports as per HPI, Reports abdominal pain, Reports nausea and Reports vomiting Musculoskeletal: Musculoskeletal: Reports no additional musculoskeletal complaints Integumentary/Breasts: Skin/Breast: Reports system reviewed and no additional complaints, except as docu Neurologic: Reports system reviewed and no additional complaints, except as documented Psychiatric: Psychiatric: Reports no additional psychiatric complaints Allergic/Immunologic: Allergic/Immunologic: Reports no additional allergic/immunologic complaints PMFSH Past Medical History Medical History GERD (gastroesophageal reflux disease) Gout Hypertension Surgical History Surgical History No pertinent past surgical history Family History Family History Other Hypertension Social History Social History Smoking status: Never smoker Alcohol intake: current Drinks per week: 4 Alcohol use details: Drinks a shot after work Substance use: never Spiritual care concerns: No Comments At the time of my signature, I reviewed and agree with the nursing past medical, surgical, social, and family history. There is no relevant family history pertinent to the patient complaint. Exam Const: General: cooperative, healthy appearing, comfortable, no acute distress, well developed, alert and well nourished Nutritional Appearance: well nourished and obese Orientation/consciousness: patient oriented x3 Limitations: no limitations HENMT: Head: normal to inspection Ears: hearing grossly normal bilaterally and external ears normal Face/Nose/Sinus: Normal external nose present, Normal nares present, Normal nasal mucous membranes and turbinates present and normal facial exam Face and sinus: normal facial exam Mouth: Yes Normal oral and palatal mucosa present, Yes lip normal and Yes moist mucous membranes Throat: posterior oropharynx normal and uvula midline Eyes: General: appearance normal, both eyes and all related structures Alignment and Position: alignment normal Periorbital: periorbital findings normal Conjunctivae:
[2022-06-24 16:54] VITALS: BP 151/98; PULSE 83; RESP 16; TEMP 36.9; O2SAT 99
== END 2022-06-24 17:02 | disposition home or self-care (01) ==
PROVIDERS: Emergency Provider Nurse Practitioner; PCP Family Medicine
DX: R10.9 Unspecified abdominal pain (principal); K21.9 Gastro-esophageal reflux disease without esophagitis; M10.9 Gout, unspecified; I10 Essential (primary) hypertension
CPT/HCPCS: 99211; G0463

== ENCOUNTER 2024-06-14 18:06 | Emergency (ER) | payer BC, SELFPAY ==
--- OUTSIDE RECORDS SUMMARY | 2024-06-14 18:08 | XMS_ITS | CONTINUITY OF CARE DOCUMENT ---
Author Name nevaeh herring Address Unknown Organization [facility] Address [address] [place] [address] Phone [phone] Care Team Providers Care Materials Inspector Name Role Phone Carlo Magdaleno MD Unavailable [phone] Carlo Magdaleno MD Unavailable [phone] STORMY SUMMERS, [facility] K Unavailable [phone] PROBLEMS Condition Status Date Provider Notes Family History of Hypertension: active Martha Garza Cardiovascular screening active Leticia merrill HTN essential active Leticia Garza Shortness of breath active Leticia Leigh eyer Family history of CAD active Leticia ramos Obesity active Leticia Garza Hyperlipidemia active Leticia Garza Snoring active Aleksandr Kuo ENCOUNTERS Date Type Provider Location Encounter Diag nosis - In-person encounter Office Visit Carlo Magdaleno MD [facility] Snoring - In-person encounter Office Visit Carlo Magdaleno MD [facility] Family History of Hypertension:Cardiovascular screeningHTN essentialShortness of breathFamily history of CADObesityHyperlipidemia VITAL SIGNS Date Observation Value Provider Body Mass Index (Ratio) 42.91 kg/m2 Dashawn Kuo pulse rate 79 /min Tamara Box blood pressure, cuff size regular Raimundo Box blood pressure, diastolic 94 mm[Hg] Fa cholo [place] blood pressure, systolic 154 mm[Hg] Gomezvenu aguilera Box oxygen saturation, oximetry 98 % Tamara [place] respiratory rate E&M 16 /min Tamara onofre weight E&M 274 [lb_av] Tamara [place] height E&M 67 [in_i] [facility] Body Mass Index (Ratio) 43.85 kg/m2 Martha rhodes Kayla blood pressure, diastolic 90 mm[Hg] Li nkLog blood pressure, systolic 150 mm[Hg] Beatris kLog blood pressure, resting Yes Dhaval joy Davis blood pressure, diastolic 90 mm[Hg] [facility] blood pressure, systolic 150 mm[Hg] [facility] oxygen saturation, oximetry 93 % Sang Ryan respiratory rate E&M 18 /min Siena louis Davis pulse rate 18 /min Eulogiohugh fu weight E&M 280 [lb_av] Sang Nicholas fu height E&M 67 [in_i] Sang Nicholas fu ALLERGIES No Known Drug Allergies HISTORY OF MEDICATION USE Medication Status Instructions Dates Provider Indications Com ments amlodipine 10 mg tablet active TAKE 1 TABLET EVERY DAY Carlo Magdaleno MD atenolol 100 mg tablet active TAKE 1 TABLET BY MOUTH EVERY DAY Carlo Magdaleno MD losartan 100 mg tablet active TAKE 1 TABLET BY MOUTH EVERY DAY 2 Carlo Magdaleno MD atorvastatin 20 mg tablet active TAKE 1 TABLET BY MOUTH EVERY NIGHT 2 Carlo Magdaleno MD aspirin 81 mg tablet,delayed release (DR/EC) active tablet by mouth 2 Carlo Magdaleno MD #30, 30 days supply, Filled 09/16/2020 amlodipine 5 mg tablet active tablet by mouth 2 Carlo Magdaleno MD #30, 15 days supply, Filled 09/16/2020 SOCIAL HISTORY Date Observation Value Provider smoking status Never smoker Tamara Box social history E&M S moking History: Day parra has never smoked. Carlo Magdaleno MD social history reviewed E&M paulino zapien - no changes required Carlo Magdaleno MD smoking status Never smoker Sang smith FAMILY HISTORY Family Member Condition Father Family History of Di abetes: Mother Family History of Hy pertension: INSURANCE PROVIDERS Payer name Policy type / Coverage type [place] [employer] party ID [facility] [id number] ADVANCE DIRECTIVES Name Date DISCUSSED - NO DECISION MADE TREATMENT PLAN Date Name Performer [id number],C,O n statin. H is updated medication list for this problem includes: Atorvastatin Calcium 20 Mg Oral Tablet (Atorvastatin calcium) Leticia Garza [id number],C, B P today: 150/90 His updated medication list for this problem includes: Losartan Potassium 100 Mg Oral Tablet (Losartan potassium) Aspirin Low Dose 81 Mg Oral Tablet Delayed Release (Aspirin) Amlodipine Besylate 5 Mg Oral Tablet (Amlodipine besylate) Leticia Garza [id number],C,E ncouraged him to lose weight and continue taking all medications. Leticia Garza [id number],C,T he pt was recently admitted to [facility]. He complained of SOB and chest discomfort. He has a history of hypertension, but was not treated prior to this admission. He states that echo was done in the hospital, however we do not have the report at this time. He denies SOB and chest pain currently. Will obtain stress test and the echo report when it becomes available. Encouraged him to lose weight and to continue to take all of his medications. H is updated medication list for this problem includes: Losartan Potassium 100 Mg Oral Tablet (Losartan potassium) Aspirin Low Dose 81 Mg Oral Tablet Delayed Release (Aspirin) Amlodipine Besylate 5 Mg Oral Tablet (Amlodipine besylate) Leticia Garza Cardiology Aleksandr Kuo Cardiology: H is updated medication list for this problem includes: Atorvastatin 20 Mg Tablet (Atorvastatin) ..... Take 1 tablet by mouth every night Aleksandr Kuo Cardiology Aleksandr Kuo Cardiology: H is updated medication list for this problem includes: Atenolol 100 Mg Tablet (Atenolol) ..... Take 1 tablet by mouth every day Amlodipine 10 Mg Tablet (Amlodipine) ..... Take 1 tablet every day Losartan 100 Mg Tablet (Losartan) ..... Take 1 tablet by mouth every day Aspirin 81 Mg Tablet,delayed Release (dr/ec) (Aspirin) ..... Tablet by mouth Amlodipine 5 Mg Tablet (Amlodipine) ..... Tablet by mouth Aleksandr Kuo Cardiology:Pt had a recent admission to [facility] due to CP. He had uncontrolled HTN, cardiac cath revelaed normal coronaries arteries, normal EF and normal renal arteries. Pt does not take his medication regularly, advised him to take regularly as prescribed. We will change atenolol to 100mg daily. Will obtain home sleep study B P today: 154/94 P rior BP: 150/90 (09/22/2020) & #13;His updated medication list for this problem includes: Atenolol 100 Mg Tablet (Atenolol) ..... Take 1 tablet by mouth every day Amlodipine 10 Mg Tablet (Amlodipine) ..... Take 1 tablet every day Losartan 100 Mg Tablet (Losartan) ..... Take 1 tablet by mouth every day Aspirin 81 Mg Tablet,delayed Release (dr/ec) (Aspirin) ..... Tablet by mouth Amlodipine 5 Mg Tablet (Amlodipine) ..... Tablet by mouth Aleksandr Kuo Cardiology:On statin . H is updated medication list for this problem includes: Atorvastatin Calcium 20 Mg Oral Tablet (Atorvastatin calcium) Leticia Garza Cardiology: B P today: 150/90 His updated medication list for this problem includes: Losartan Potassium 100 Mg Oral Tablet (Losartan potassium) Aspirin Low Dose 81 Mg Oral Tablet Delayed Release (Aspirin) Amlodipine Besylate 5 Mg Oral Tablet (Amlodipine besylate) Leticia Garza Cardiology:Encourage d him to lose weight and continue taking all medications. Leticia Kayla Cardiology:The pt wa s recently admitted to [facility]. He complained of SOB and chest discomfort. He has a history of hypertension, but was not treated prior to this admission. He states that echo was done in the hospital, however we do not have the report at this time. He denies SOB and chest pain currently. Will obtain stress test and the echo report when it becomes available. Encouraged him to lose weight and to continue to take all of his medications. H is updated medication list for this problem includes: Losartan Potassium 100 Mg Oral Tablet (Losartan potassium) Aspirin Low Dose 81 Mg Oral Tablet Delayed Release (Aspirin) Amlodipine Besylate 5 Mg Oral Tablet (Amlodipine besylate) Leticia Orozcofreeman Date Name Sleep Study Home PROTHROMBIN TIME WIT H INR CBC (INCLUDES DIFF/P LT) BASIC METABOLIC PANE L W/EGFR Stress Routine HISTORY OF PROCEDURES Procedure Date Procedure Name Provider Procedure Notes S tatus EKG Carlo Magdaleno MD completed
--- OUTSIDE RECORDS SUMMARY | 2024-06-14 18:08 | XMS_ITS | Clinical Summary ---
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 Role Phone Unavailable Primary Care Provider Unavailabl e Social History Tobacco Use Types Packs/Day Years Used Date Smoking Tobacco: Never Assessed Sex and Gender Information Value Date Recorded Sex Assigned at Not on file Legal Sex Male 1:43 PM [employer] Gender Identity Not on file Sexual Orientation Not on file Plan of Treatment Health Maintenance Due Date Last Done Comments Hepatitis C Virus (HCV) Screening 1986 TdaP Immunization 1986 Hepatitis B Immunization (1 of 3 - 19+ 3-dose series) 2005 Influenza Immunization (#1) 2023 SARS-COV-2 Immunization ( - 2023- season) 2023 Respiratory Syncytial Virus (RSV) Immunization (Adult) (1 - 1-dose 75+ series) 2061 Meningococcal Immunization (ACWY) Aged Out No longer eligible based on patient's age to complete this topic Pneumococcal Immunization Combined Aged Out No longer eligible based on patient's age to complete this topic Rotavirus Immunization Aged Out No lo nger eligible based on patient's age to complete this topic
--- OUTSIDE RECORDS SUMMARY | 2024-06-14 18:08 | XMS_ITS | Data Portability ---
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 US kidney: 09/03/21. Stress echo: 08/20/21. Annual labs: 10/01/20. D/w pt in detail about his findings, recent labs & imagines and further plan of care. Staff to get his recent hospital records. Pt to bring all his meds on next visit. Will refer for sleep study again. Medication compliance & regular f/u explained to pt. All meds verified with pt. Meds as directed. Diet and exercise explained in detail. BP diary education given and call us if any concerns. Safe sex education given. Educated pt about alarming symptoms to monitor at home and call us back Or get checked in ED. Cont f/u with Cardio at [facility] as per schedule. Offered to refer to Nephro; but pt declined. HM: Flu - Pt declined. Tdap, Gardasil - At HD. F/u in 2-3 weeks. Lipids, uric acid before next visit. Annual labs in 06/17. [email or web address] Not available 03/13/2023 16:42:51 04/10/2023 04/10/2023 37 yo M with - HTN - CKD III, resolved - HLD - GOUT - GERD - FATTY LIVER - SNORING & PAUSES; R/O CROW - ED - OBESITY III - H/O ATYPICAL CHEST PAIN CXR: 02/15/22. US kidney: 09/03/21. Stress echo: 08/20/21. Annual labs: 10/01/20. D/w pt in detail about his findings, recent labs & imagines and further plan of care. Advised pt to f/u with his Cardio about his all HTN meds and concerns. Medication compliance & regular f/u explained to pt. All meds verified with pt. Meds as directed. Diet and exercise explained in detail. BP diary education given and call us if any concerns. Safe sex education given. Educated pt about alarming symptoms to monitor at home and call us back Or get checked in ED. F/u with sleep study as per schedule. Cont f/u with Cardio at [facility] as per schedule. Offered to refer to Nephro; but pt declined. HM: Flu - Pt declined. Tdap, Gardasil - At HD. F/u in 2 months. Annual labs in 06/17. [email or web address] Not available 04/10/2023 16:03:41 06/07/2023 06/07/2023 37 yo M with - WELL ADULT VISIT - HTN - CKD III, resolved - HLD - GOUT - GERD - FATTY LIVER - SNORING & PAUSES; R/O CROW - ED - OBESITY III - H/O ATYPICAL CHEST PAIN CXR: 02/15/22. US kidney: 09/03/21. Stress echo: 08/20/21. Annual labs: 10/01/20. D/w pt in detail about his findings, recent labs & imagines and further plan of care. Advised pt to f/u with his Cardio about his all HTN meds and concerns. Medication compliance & regular f/u explained to pt. All meds verified with pt. Meds as directed. Diet and exercise explained in detail. BP diary education given and call us if any concerns. Safe sex education given. Educated pt about alarming symptoms to monitor at home and call us back Or get checked in ED. F/u with sleep study as per schedule. Cont f/u with Cardio at [facility] as per schedule. Offered to refer to Nephro; but pt declined. HM: Flu - Pt declined. Tdap, Gardasil - At HD. F/u in 3-4 weeks. Annual labs in 06/18. Not available 06/07/2023 14:00:46 01/29/2024 01/29/2024 38 yo M with - HTN - CKD III, resolved - HLD - GOUT - GERD - FATTY LIVER - SNORING & PAUSES; R/O CROW - ED - OBESITY III - H/O ATYPICAL CHEST PAIN CXR: 02/15/22. US kidney: 09/03/21. Stress echo: 08/20/21. Annual labs: 10/01/20. D/w pt in detail about his findings, recent labs & imagines and further plan of care. Advised pt to f/u with his Cardio about his all HTN meds. Medication compliance & regular f/u explained to pt. All meds verified with pt. Meds as directed. Diet and exercise explained in detail. BP diary education given and call us if any concerns. Safe sex education given. Educated pt about alarming symptoms to monitor at home and call us back Or get checked in ED. F/u with sleep study as per schedule. Cont f/u with Cardio at [facility] as per schedule. Offered to refer to Nephro; but pt declined. HM: Flu - Pt declined. Tdap, Gardasil - At HD. F/u in 3-4 weeks. Annual labs in 06/18. [email or web address] Not available 01/29/2024 16:26:29 03/18/2024 03/18/2024 Assessment: Hypertension Severe OSAHS, AHI = 35 PLMD Hypoventilation Plan: The following were reviewed and explained to the patient: primary care/referral note [facility] home sleep study 03/12/24 AHI = 35, supine AHI = 36 General information on sleep disordered breathing, evaluation of sleep disordered breathing, treatment with PAP therapy, and living with PAP therapy were covered. PSG is medically necessary to determine the management of sleep apnea. We discussed with the patient the impact of weight on: Sleep disordered breathing Hypertension Hyperlipidemia LEA Hepatomegaly Hepatic steatosis CKD Hyperuricemia We discussed with the patient the benefit of PAP therapy on: Sleep disordered breathing Hypertension LEA CKD ED Educated the patient on sleep hygiene measures. Relaxing rituals to rest easy, understanding foods with positive and negative impact on sleep, creating a peaceful sleep environment, timing of exercise, using herbal sleep aids, and practicing sleep-friendly meditation were covered. To determine how much sleep is needed, the patient will assess where he falls on the spectrum, examine what lifestyle factors such as work schedules and stress are affecting the quality and quantity of sleep. In general, adults need 7-9 hours of sleep. Educated the patient regarding foods that promote sleep. These include but are not limited to cherries, bananas, toast, oatmeal, and warm milk. Educated the patient regarding foods and drinks to avoid before bedtime. These include but are not limited to aged cheese, chocolate, spicy foods, tomato-based sauces, soy, ginseng tea and processed meat. Advocated influenza vaccination annually and pneumonia vaccination in 2036. Advocated weight loss through diet and exercise. Patient's ideal body weight according to height and gender is up to 160 lbs. Encouraged patient to adjust caloric intake to maintain/achieve ideal body weight, emphasizing on fruits, vegetables, whole grains, and fat-free or low-fat products. These include lean meats, poultry, fish, beans, eggs, and nuts and foods that are low in saturated fats, trans-fats, cholesterol, salt (sodium), and glycemic index. Stressed the importance of regular exercise up to the patient's capacity limits. In this case, we recommend 20 min daily walking, 2 days a week of resistance training. Patient to monitor BP daily and bring records to PCP for further management. Follow-up: 1 week after titration sleep study [email or web address] Not available 03/18/2024 11:48:34 Plan of Treatment Reminders Order Date Submit Date Provider Last Modified By Organization Details Last Modified Time Details Appointments None recorded. Lab uric acid, serum or plasma [address] (Lab), [address] [place], [address], 14:06:31 CMP, serum or plasma [address] (Lab), [address] [place], [address], 5 14:06:30 CBC w/ auto diff [address] (Lab), [address] [place], [address], 5 14:06:30 lipid panel, blood [address] (Lab), [address] [place], [address], 5 14:06:31 TSH, serum, reflex free T4 [address] (Lab), [address] [place], [address], 5 14:06:31 urinalysis complete, reflex culture [address] (Lab), [address] [place], [address], 5 14:06:31 glycohemog lobin, total, blood [address] (Lab), [address] [place], [address], 5 14:06:31 vitamin D, 25-hydroxy , total, serum [address] (Lab), [address] [place], [address], 5 14:06:31 uric acid, serum or plasma 2023 024 [email or web address] [facility] (Lab), [address] [place], [address], 4 10:22:02 CMP, serum or plasma 2023 024 [email or web address] [facility] (Lab), [address] [place], [address], 4 08:32:47 CBC w/ auto diff [address] (Lab), [address] [place], [address], 4 08:32:47 lipid panel, blood [address] (Lab), [address] [place], [address], 4 08:32:47 TSH, serum, reflex free T4 [address] (Lab), [address] [place], [address], 4 08:32:47 urinalysis complete, reflex culture [address] (Lab), [address] [place], [address], 4 08:32:47 glycohemog lobin, total, blood [address] (Lab), [address] [place], [address], 4 08:32:48 vitamin D, 25-hydroxy , total, serum [address] (Lab), [address] [place], [address], 4 08:32:47 semen analysis 2023 024 [email or web address] [facility] (Lab), [address] [place], [address], 4 10:49:10 uric acid, serum or plasma 2022 023 [email or web address] [facility] (Lab), [address] [place], [address], 4 08:50:35 lipid panel, serum 2022 023 [email or web address] [facility] (Lab), [address] [place], [address], 4 08:50:35 Referral None recorded. Procedures None recorded. Surgeries None recorded. Imaging polysomnog jurgen, titration study - Please call patient to schedule. 2023 024 [email or web address] [facility], [address] [place], [address], 5 08:43:59 home sleep study - *Please call pt to schedule* 2022 023 [email or web address] [facility], [address] [place], [address], 4 11:56:07 Medication Orders allopurino l 100 mg tablet 2023 024 [facility]23770, [address] [place], [place], [id number], 4 15:58:49 indomethac in 50 mg capsule 2023 024 [facility], [address] [place], [place], [id number], 4 10:59:29 losartan 100 mg tablet 2023 024 [facility]79913, [address] [place], [place], [id number], 4 16:01:59 amlodipine 10 mg tablet 2023 024 [facility] #49211, [address] [place], [place], [id number], 4 16:01:54 atenolol 25 mg tablet 2023 [facility] #93595, [address] [place], [place], [id number], 4 16:01:40 sildenafil 50 mg tablet 2023 [facility] #12924, [address] [place], [place], [id number], 4 15:58:55 atorvastat in 20 mg tablet 2023 [facility] #52280, [address] [place], [place], [id number], 4 16:01:58 allopurino l 100 mg tablet 2023 [facility] #78679, [address] [place], [place], [id number], 4 14:13:55 indomethac in 50 mg capsule 2023 [email or web address] [facility] #04079, [address] [place], [place], [id number], 4 10:59:29 losartan 100 mg tablet 2023 024 [facility] #21012, [address] [place], [place], [id number], 4 14:13:56 sildenafil 50 mg tablet 2023 024 [facility] #79908, [address] [place], [place], [id number], 4 14:14:01 atorvastat in 20 mg tablet 2023 024 [facility] #02527, [address] [place], [place], [id number], 4 14:13:56 allopurino l 100 mg tablet 2023 024 [facility] #77733, [address] [place], [place], [id number], 4 15:40:19 indomethac in 50 mg capsule 2023 024 [facility]11041, [address] [place], [place], [id number], 4 10:59:29 losartan 100 mg tablet 2023 024 [facility] #29446, [address] [place], [place], [id number], 4 15:40:18 sildenafil 50 mg tablet 2023 024 [facility] #70150, [address] [place], [place], [id number], 4 15:44:35 ergocalcif lashawn (vitamin D2) 1,250 mcg (50,000 unit) capsule 2023 024 [facility] #35986, [address] [place], [place], [id number], 4 15:40:17 atorvastat in 20 mg tablet 2023 024 [facility] #11207, [address] [place], [place], [id number], 4 16:04:31 allopurino l 100 mg tablet 2022 023 [facility] #20586, [address] [place], [place], [id number], 3 15:56:17 indomethac in 50 mg capsule 2022 023 [email or web address] [facility] #72216, [address] [place], [place], [id number], 4 10:59:29 losartan 100 mg tablet 2022 023 [facility] #80977, [address] [place], [place], [id number], 3 15:56:18 ergocalcif lashawn (vitamin D2) 1,250 mcg (50,000 unit) capsule 2022 023 [facility] [facility] #23776, [address] [place], [place], [id number], 3 15:56:19 Patient TargetsNo targets recorded. Patient Instructions Encounter Date Encounter Id Patient Instructions Last Modified By Organization Details Last Modified Time 03/13/2023 [id number] Thank you for your visit to our office today. We would like to request that you reach out to your referring or previous provider and request that they send us a Summary of Care in electronic form, so that we may have it on file in your medical record. At your visit, we had the medical records we needed to provide you with the best possible care; however, for insurance purposes, an electronic Summary of Care is beneficial. Thank you for your assistance in obtaining this information and we look forward to providing continued care to you. Please review your medication list from the Summary of Care for this visit. If there are any differences from what you are currently taking at home, please call us to discuss. [email or web address] Not available 03/13/2023 15:42:38 01/29/2024 [id number] high blood pressure: care instructions Not available 01/29/2024 16:00:20 dash diet: care instructions [email or web address] Not available 01/29/2024 16:00:20 high cholesterol : care instructions [email or web address] Not available 01/29/2024 16:00:20 starting a weigh t loss plan: care instructions [email or web address] Not available 01/29/2024 16:00:20 Reason for Referral None Reported. Results Created Date Observation Date Name Description Value Unit Range Abnormal Flag Note LastModifiedBy Organization Detail LastModifiedTime 03/15/20 24 03/12/2024 home sleep study No observ ation record ed. [facility] [address] [place], [address], 03/15/2024 14:45:18 03/21/20 24 03/12/2024 home sleep study No observ ation record ed. [email or web address] [facility] [address] [place], [address], 03/21/2024 23:15:18 Result Notes None recorded. Problems Name Problem SNOMED Code Status Onset Date Resolution Date Notes Provider Name and Address Organization Details Recorded Time Steatosis of liver 441770932 Active 2021 [facility] Available [facility] 3 10:46:01 Unexplained infertility 270543550 Active 2021 Not Available [facility] 3 10:46:01 Gastroesophag eal reflux disease without esophagitis 322107439 Active 2020 Not Available [facility] 3 10:46:01 Vitamin D deficiency 39870120 Active 2020 Not Available [facility] 3 10:46:01 Hypertensive disorder 88435118 Active 2020 Not Available [facility] 3 10:46:01 Obesity 830709281 Active 2020 Not Available [facility] 3 10:46:02 Chronic kidney disease stage 3 664090999 Active 2020 Not Available [facility] 3 10:46:02 Hyperlipidemi a 18381292 Active 2020 Not Available [facility] 3 10:46:02 Gout 38358023 Active 2020 Not Available [facility] 3 10:46:02 Sleep apnea 86136769 Active 2022 Renan Mcbride MD [address] [address], [place], [address] , [facility] [email or web address] [facility] [employer] [facility] 3 14:37:55 Erectile dysfunction 595975808 Active 2023 Renan Mcbride MD [address] [address], [place], [address] , [facility] [email or web address] [facility] [employer] [facility] 4 15:41:38 Obstructive sleep apnea syndrome 38948587 Active 2023 Dayday Stanford MD [address] [address], [place], [address] , [facility] [email or web address] [facility] [employer] [facility] 4 11:37:51 Notes:Medical History: Obesi ty with severe OSAHS, AHI = 35, 03/12/24 Hypertension EF 60% Hyperlipidemia LEA Hepatomegaly Hepatic steatosis Stage 3 CKD ED Infertility Vit D deficiency Hyperuricemia with gout Procedure History: None 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 Procedures Surgical History None recorded. Imaging Results Imaging Date Name Status LastModified by Organiz [facility] Details LastModified Time 03/12/2024 home sleep study completed [facility] [address] [place], [address], 03/15/2024 14:45:18 03/12/2024 home sleep study completed [email or web address] [facility] [address] [place], [address], 03/21/2024 23:15:18 Procedure Notes None recorded. Medical Equipment None Reported. Allergies No known drug allergies Medications Name Sig Start Date Stop Date Status Note LastModified by Organization Details LastModified Time losartan 50 mg tablet TAKE 2 TABLETS BY MOUTH EVERY DAY 04/10 completed Not Available Not Available Not Available prednisone 10 mg tablet 01/28 completed Not Available Not Available Not Available atorvastati n 20 mg tablet TAKE 1 TABLET BY MOUTH EVERY DAY AT BEDTIME 2023 active Not Available Not Available Not [employer] sildenafil 50 mg tablet Take 1 tablet as needed by oral route as directed for 30 days. 2023 active Not Available Not Available Not [employer] atenolol 100 mg tablet 01/28 completed Not Available Not Available Not Available hydrocodone 5 mg-acetamin ophen 325 mg tablet TAKE 1 TABLET BY MOUTH EVERY 6 HOURS NEEDED 03/13 completed Not Available Not Available Not Available ondansetron HCl 4 mg tablet TAKE 1 TABLET BY MOUTH EVERY 8 HOURS 03/13 completed Not Available Not Available Not Available prednisone 20 mg tablet TAKE 1 TABLET BY MOUTH DAILY FOR 5 DAYS 01/28 completed Not Available Not Available Not Available atenolol 25 mg tablet Take 1 tablet every day by oral route in the morning for 90 days. 2023 active Not Available Not Available Not Avai l[employer] amlodipine 5 mg tablet TAKE 1 TABLET BY MOUTH EVERY DAY 04/10 completed Not Available Not Available Not Available allopurinol 100 mg tablet Take 1 tablet twice a day by oral route as directed for 30 days. 2023 active Not Available Not Available Not Avai lable tramadol 50 mg tablet TAKE 1 TABLET BY MOUTH EVERY 8 HOURS NEEDED 09/23 completed Not Available Not Available Not Available famotidine 20 mg tablet TAKE 1 TABLET BY MOUTH TWICE DAILY 03/18 completed Not Available Not Available Not Available dicyclomine 20 mg tablet TAKE 1 TABLET BY MOUTH THREE TIMES DAILY 03/18 completed Not Available Not Available Not Available baclofen 10 mg tablet TAKE 1 TABLET BY MOUTH THREE TIMES DAILY NEEDED FOR MUSCLE PAIN 06/22 completed Not Available Not Available Not Available amlodipine 10 mg tablet Take 1 tablet every day by oral route in the evening for 90 days. 2023 active Not Available Not Available Not Avai lable metoprolol tartrate 50 mg tablet Take 1 tablet twice a day by oral route as directed for 90 days. 01/28 completed Not Available Not Available Not Available indomethaci n 50 mg capsule TAKE 1 CAPSULE BY MOUTH THREE TIMES DAILY WITH FOOD OR MILK FOR 10 DAYS 03/18 completed Not Available Not Available Not Available hydrochloro thiazide 12.5 mg capsule Take 1 capsule every day by oral route in the morning for 30 days. active Not Available Not Available No t Available allopurinol 300 mg tablet Take 1 tablet every day by oral route after meals for 30 days. 03/13 completed Not Available Not Available Not Available hydrochloro thiazide 25 mg tablet TAKE 1 TABLET BY MOUTH EVERY DAY 01/28 completed Not Available Not Available Not Available ergocalcife rol (vitamin D2) 1,250 mcg (50,000 unit) capsule Take 1 capsule every week by oral route as directed. 2023 active Not Available Not Available Not Avai lable ibuprofen 600 mg tablet TAKE 1 TABLET BY MOUTH EVERY 6 HOURS WITH FOOD NEEDED 04/10 completed Not Available Not Available Not Available methylpredn isolone 4 mg tablets in a dose pack FOLLOW PACKAGE DIRECTION S 10/27 completed Not Available Not Available Not Available colchicine 0.6 mg tablet Take 1 tablet 3 times a week by oral route as directed for 14 days. 01/28 completed Not Available Not Available Not Available losartan 100 mg tablet Take 1 tablet every day by oral route in the morning for 90 days. 2023 active Not Available Not Available Not Avai lable atenolol 50 mg tablet TAKE 1 TABLET BY MOUTH DAILY 01/28 completed Not Available Not Available Not Available naproxen 500 mg tablet 03/13 completed Not Available Not Available Not Available Adult Low Dose Aspirin 81 mg tablet,jarret yed release Take 1 tablet every day by oral route with meals for 90 days. active Not Available Not Available No t Available colchicine 0.6 mg capsule TAKE 1 CAPSULE BY MOUTH NOW 09/23 completed Not Available Not Available Not Available Vitals Date Recorded Body height Body mass index (BMI) Body weight Body temperature Heart rate Respiratory rate Systolic blood pressure Diastolic blood pressure Provider Name and Address Organization Details Last Updated DateTime 3 170.18 cm 46.7 kg/m2 694587. 88 g 98.1 [degF] 97.1 /min 16 /min 140 mm[Hg] 88 mm[Hg] Moshe Angeles [facility] [employer] [facility] 3 15:44:38 Date Recorded Oxygen saturation Oxygen saturation in Arterial blood by Pulse oximetry Provider Name and Address Organization Details Last Updated DateTime 03/13/2023 99 % 99 % Renan Mcbride MD [address], [facility] [address], [place], [address], [facility] [employer] 03/13/2023 15:46:26 Date Recorded Body height Body mass index (BMI) Body weight Body temperature Respiratory rate Oxygen saturation Oxygen saturation in Arterial blood by Pulse oximetry Systolic blood pressure Diastolic blood pressure Provider Name and Address Organization Details Last Updated DateTime 4 170.18 cm 46.2 kg/m2 054515. 1 g 97.1 [degF] 16 /min 99 % 99 % 142 mm[Hg] 76 mm[Hg] Moshe Angeles [facility] [employer] [facility] 4 15:31:14 Date Recorded Heart rate Provider Name an d Address Organization Details Last Updated DateTime 04/10/2023 56 /min Sun Ogden [address] [place], [address], [facility] [employer] 04/10/2023 15:33:29 Date Recorded Body height Body mass index (BMI) Body weight Body temperature Heart rate Respiratory rate Oxygen saturation Oxygen saturation in Arterial blood by Pulse oximetry Systolic blood pressure Diastolic blood pressure Provider Name and Address Organization Details Last Updated DateTime 4 170.18 cm 46.5 kg/m2 741928. 93 g 98.1 [degF] 66 /min 16 /min 99 % 99 % 136 mm[Hg] 76 mm[Hg] Moshe Angeles [facility] [employer] 4 14:06:58 Date Recorded Body height Body mass index (BMI) Body weight Body temperature Oxygen saturation Oxygen saturation in Arterial blood by Pulse oximetry Heart rate Provider Name and Address Organization Details Last Updated DateTime 4 170.18 cm 46.2 kg/m2 946733. 8 g 97.2 [degF] 96 % 96 % 84 /min Debbi Herrera RN [facility] [employer] 15:49:12 Date Recorded Systolic blood pressure Diastolic blood pressure Systolic blood pressure Diastolic blood pressure Provider Name and Address Organization Details Last Updated DateTime 01/29/2024 176 mm[Hg] 110 mm[Hg] 168 mm[Hg] 104 mm[Hg] Vashti Mcbride MD [address], [place], [address] , [facility] [employer] [facility] 4 16:02:42 Date Recorded Body height Body mass index (BMI) Body weight Body temperature Heart rate Oxygen saturation Oxygen saturation in Arterial blood by Pulse oximetry Systolic blood pressure Diastolic blood pressure Provider Name and Address Organization Details Last Updated DateTime 4 170.18 cm 46.4 kg/m2 981478. 34 g 98.2 [degF] 74 /min 98 % 98 % 148 mm[Hg] 94 mm[Hg] Laurence Gruber MA [facility] [employer] [facility] 4 10:57:49 Date Recorded Heart rate Respiratory rate Provider N polly and Address Organization Details Last Updated DateTime 03/18/2024 74 /min 15 /min Dayday Stanford MD [address], [address], [facility] [employer] [facility] 03/18/2024 11:27:43 Social History Question Answer Notes LastModified by Organizat ion Details LastModified Time Tobacco Smoking Status Never Smoker Not Available [facility] 10:41:59 Do You Have An Advance Directive? No [id number] Information not available 05/25/2022 What Is Your Level Of Alcohol Consumption? Occasional MIGRATION.29465 08781 Information not available 05/25/2022 Do You Wear A Helmet When Biking? No MIGRATION.36688 26372 Information not available 05/25/2022 What Is Your Level Of Caffeine Consumption? Occasional MIGRATION.73967 38825 Information not available 05/25/2022 In The 14 Days Before Symptom Onset, Have You Had Close Contact With A Laboratory-confi rmed COVID-19 While That Case Was Ill? No MIGRATION.12187 50083 Information not available 05/25/2022 In The 14 Days Before Symptom Onset, Have You Had Close Contact With A Person Who Is Under Investigation For COVID-19 While That Person Was Ill? No MIGRATION.55630 15726 Information not available 05/25/2022 Are You Currently Employed? Yes [employer] Information not available 03/18/2024 What Type Of Diet Are You Following? REGULAR MIGRATION. 75073 Information not available 05/25/2022 What Is The Highest Grade Or Level Of School You Have Completed Or The Highest Degree You Have Received? [id number] MIGRATION.52941 49201 Information not available 05/25/2022 Do You Have An Electrostatic Air Filter? No Information not available 03/18/2024 What Is Your Occupation? [employer] Tr[employer] MIGRATION.43274 09041 Information not available 05/25/2022 Have You Been Exposed To Chemicals Or Toxins? No Not That Aware Of Information not available 03/18/2024 Have There Been Any Changes To Your Family Or Social Situation? No MIGRATION.99094 54304 Information not available 05/25/2022 Do You Have A Humidifier? No Information not available 03/18/2024 Do You Use Insect Repellent Routinely? No MIGRATION.93571 29199 Information not available 05/25/2022 Where Do You Live? [facility] MIGRATION.75751 07653 Information not available 05/25/2022 Do You Have A Medical Power Of Printing Technician? No MIGRATION.05626 06378 Information not available 05/25/2022 Do You Have Moisture Problems In Your Home? No Information not available 03/18/2024 What Was The Date Of Your Most Recent Tobacco Screening? 03/18/2024 Information not available 03/18/2024 Have You Ever Been Counseled For Unhealthy Alcohol Use? No MIGRATION.47501 56923 Information not available 05/25/2022 Do You Have Any Pets? No MIGRATION.96031 28152 Information not available 05/25/2022 What Is Your Relationship Status? Single MIGRATION.42495 81080 Information not available 05/25/2022 Do You Use Your Seat Belt Or Car Seat Routinely? No MIGRATION.06323 61359 Information not available 05/25/2022 Do You Have Smoke And Carbon Monoxide Detectors In Your Home? Yes MIGRATION.07934 12773 Information not available 05/25/2022 Are You Passively Exposed To Smoke? Yes MIGRATION.10816 53767 Information not available 05/25/2022 Are There Any Smokers In Your House? No MIGRATION.60778 45965 Information not available 05/25/2022 Do You Participate In Social Media? Yes MIGRATION.65095 65728 Information not available 05/25/2022 Do You Feel Stressed (tense, Restless, Nervous, Or Anxious, Or Unable To Sleep At Night)? [id number] MIGRATION.03781 24492 Information not available 05/25/2022 Do You Use Any Illicit Or Recreational Drugs? No MIGRATION.71898 50181 Information not available 05/25/2022 Do You Use Sunscreen Routinely? No MIGRATION.51662 99811 Information not available 05/25/2022 Have You Recently Traveled Abroad? No MIGRATION.64479 40661 Information not available 05/25/2022 Are You Currently In School? No MIGRATION.97562 93040 Information not available 05/25/2022 Do You Have Any Dietary Restrictions? No MIGRATION.82501 72634 Information not available 05/25/2022 Do You Or Have You Ever Used Any Other Forms Of Tobacco Or Nicotine? No MIGRATION.25740 17056 Information not available 05/25/2022 Sex: Male Functional Status Question Answer Note LastModified by Organizat ion Details LastModified Time What is your exercise level? None [id number] Information not available 05/25/2022 Mental Status None recorded. Family History Relationship Description Onset Age of this Age Resolved Age Notes LastModified by Organization Details LastModified Time Mother Hypertensive disorder [id number] Not available 05/25/2022 10:42:53 Father Diabetes mellitus MIGRATION.599 [id number] Not available 05/25/2022 10:42:53 Maternal Grandfather Myocardial infarction [email or web address] Not available 03/18 11:43:40 Maternal Grandmother Malignant tumor of breast nyu5 Not available 2023 11:43:59 Maternal Uncle Malignant tumor of breast nyu5 Not available 2023 11:44:19 Paternal Uncle Malignant tumor of prostate nyu5 Not available 2023 11:45:04 Medical History No medical history recorded. Past Encounters Encounter ID Performer Location Encounter Start Date Encounter Closed Date Diagnosis/Indication Diagnosis SNOMED-CT Code Diagnosis ICD10 Code Diagnosis Note [id number] [facility] [address] [address] [place] [address] 09/23/2020 00:00:00 09/23/2020 18:03:49 [id number] [facility] [address] [address] [place] [address] 10/01/2020 00:00:00 10/01/2020 18:14:56 [id number] [facility] [place] [address] [place] [address] 10/21/2020 00:00:00 10/21/2020 16:20:48 [id number] [facility] [place] [address] [place] [address] 11/11/2020 00:00:00 11/11/2020 15:37:32 [id number] [facility] [place] [address] [place] [address] 12/09/2020 00:00:00 12/09/2020 15:57:38 [id number] [facility] [place] [address] [place] [address] 01/11/2021 00:00:00 01/11/2021 16:49:32 [id number] [facility] [place] [address] [place] [address] 02/09/2021 00:00:00 02/09/2021 16:22:54 [id number] [facility] [place] [address] [place] [address] 04/14/2021 00:00:00 04/14/2021 16:31:53 [id number] [facility] [place] [address] [place] [address] 04/26/2021 00:00:00 04/26/2021 14:21:03 [id number] [facility] [place] [address] [place] [address] 05/20/2021 00:00:00 05/20/2021 14:08:04 [id number] [facility] [place] [address] [place] [address] 08/19/2021 00:00:00 08/19/2021 17:30:18 [id number] [facility] [place] [address] [place] [address] 09/16/2021 00:00:00 09/16/2021 11:00:[id number] [address] 10/27/2021 00:00:00 10/27/2021 17:20:15 [id number] Renan Mcbride MD [address] [address] 05/25/2022 11:50:17 05/25/2022 12:52:03 Hypertensive disorder 27291242 I10 Hyperlipidemia 79227586 E78.5 Gout 89096098 M10.9 Steatosis of liver 1007 K76.0 Vitamin D deficiency 347 67681 E55.9 Obesity 424137155 E66.9 Chronic ki dney disease stage 3 939159117 N18.30 [id number] Renan Mcbride MD [address] [address] 06/22/2022 14:22:56 06/22/2022 15:00:20 Hypertensive disorder 66611630 I10 Hyperlipidemia 07654259 E78.5 Gout 29807860 M10.9 Steatosis of liver 1007 K76.0 Vitamin D deficiency 347 44426 E55.9 Obesity 031013402 E66.9 Chronic ki dney disease stage 3 454281607 N18.30 Adult [facility] examination 503264165 Z00.00 Sleep apnea 09436188 G47 .30 [id number] Renan Mcbride MD [address] [address] 03/13/2023 15:37:47 03/13/2023 16:04:42 Transition of care 2613648423 105 Z75.8 Hypertensive disorder 38 747619 I10 Hyperlipidemia 61176575 E78.5 Gout 36344436 M10.9 Steatosis of liver 16216 1007 K76.0 Vitamin D deficiency 347 64044 E55.9 Obesity 842873038 E66.9 Chronic ki dney disease stage 3 509634115 N18.30 resolved Sleep apnea 91356956 G47 .30 [id number] Renan Mcbride MD [address] [address] 04/10/2023 15:23:14 04/10/2023 16:07:33 Hypertensive disorder 38146178 I10 Hyperlipidemia 18964098 E78.5 Gout 63435761 M10.9 Steatosis of liver 1007 K76.0 Vitamin D deficiency 347 20452 E55.9 Obesity 105657377 E66.9 Chronic ki dney disease stage 3 209945626 N18.30 resolved Sleep apnea 11903121 G47 .30 Erectile dysfunction 860 059743 F52.21 Trying to conceive 48144 9001 Z31.9 [id number] Renan Mcbride MD [facility] [address] 06/07/2023 13:58:34 06/07/2023 14:37:07 Hypertensive disorder 42647037 I10 Hyperlipidemia 05903558 E78.5 Gout 25718522 M10.9 Steatosis of liver 1007 K76.0 Vitamin D deficiency 347 48361 E55.9 Obesity 804003084 E66.9 Erectile dysfunction 860 506990 F52.21 [facility] examination 188039742 Z00.00 [id number] Renan Mcbride MD [address] [address] 01/29/2024 15:30:56 01/29/2024 16:40:12 Adult health examination 182194206 Z00.00 Hypertensive disorder 38 893138 I10 Hyperlipidemia 17847719 E78.5 Gout 54513136 M10.9 Steatosis of liver 1007 K76.0 Vitamin D deficiency 347 58046 E55.9 Obesity 040663083 E66.9 Erectile dysfunction 860 838153 F52.21 [id number] Dayday Stanford MD [facility] [place] [address] [place] [address] 03/18/2024 10:46:36 03/25/2024 11:36:16 Obstructive sleep apnea syndrome 73826485 G47.33 G47.30 G47.36 G47.61 Health Concerns Section Related Observation LastModified by Organization Detai ls LastModified Time None Recorded Concern Status LastModified by Organization Details LastModified Time None Recorded Advance Directives Directive N: Payers Encounter Date Sequence Insurance Name Policy Number Policy Hutchison Covered Member ID Hutchison Member ID Guarantor Name 03/13/2023 1 [facility] (MEDICAID REPLACEMENT - HMO) [id number] Amari Finnegan [id number] 27 Amari Finnegan 04/10/2023 1 [place] [facility] [place]ID REPLACEMENT - [place] [id number] Amari Mendietaers [id number] Amari R Finnegan 06/07/2023 1 [place] [facility] [place]ID REPLACEMENT - [place]MO) [id number] Somersetdedra Mendietaers [id number] 27 Amari R Finnegan 01/29/2024 1 [place] [facility] [place]ID REPLACEMENT - [place]MO) [id number] [employer] Finnegan [id number] 27 Amari Finnegan 03/18/2024 1 [place] [facility] (MEDICAID REPLACEMENT - HMO) [id number] Somersetdedra Finnegan [id number] 27 Amari Brewster Finnegan Notes Date Note Type Note Provider Name and Address Organization Details Recorded Time 03/13/2023 text/html Hospital fuv: Pt was admitted to [facility] 2 times in last 2 months. Pt says his BP was high at that time. Pt has seen Cardio in the hospital and few weeks later, he got angiogram with them and it was good as per pt. Pt will be seeing them in 04/19 for f/u. Pt was last seen in 06/16 and since than, no f/u. Pt is non-compliant with his visits. Renan Mcbride MD [address] [place] [address], [place] [address], [place], [address], [facility] 03/13/2023 16:43:12 04/10/2023 text/html Pt is here for f /u on his meds, labs and chronic conditions. Pt has not gone for labs yet. C/o ED for last few months and wants to try Viagra for it. Pt wants to get semen analysis done too. They are trying to have a baby, but not luck yet. Pt was admitted to [facility] 2 times in last 2 months. Pt says his BP was high at that time. Pt has seen Cardio in the hospital and few weeks later, he got angiogram with them and it was good as per pt. Pt is f/u with Cardio at [facility] and saw them few weeks ago. Pt is non-compliant with his visits. Renan Mcbride MD [address], [place], [address], [facility] 04/10/2023 16:04:53 06/07/2023 text/html Pt is here for h is annual exam. Doing overall better. Denies any new concern. C/o ED for last few months and wants to try Viagra for it. Pt wants to get semen analysis done too. They are trying to have a baby, but not luck yet. Pt was admitted to [facility] 2 times in last 2 months. Pt says his BP was high at that time. Pt has seen Cardio in the hospital and few weeks later, he got angiogram with them and it was good as per pt. Pt is f/u with Cardio at [facility]. Pt is non-compliant with his visits. Pt has not gone for sleep study yet. Renan Mcbride MD [address], [place], [address], [facility] 06/07/2023 14:35:53 01/29/2024 text/html Pt is here for f /u on his meds and chronic conditions. Doing overall better. Denies any new concern. Pt is not taking his meds regularly and he is out of few meds for last few months. Denies any s/e from meds. Last visit in 06/17, he has not gone for any labs yet. Pt is non-compliant with his visits. Pt has not gone for sleep study yet. Pt was admitted to [facility] 2 times in last 2 months. Pt says his BP was high at that time. Pt has seen Cardio in the hospital and few weeks later, he got angiogram with them and it was good as per pt. Pt is f/u with Cardio at [facility]. Renan Mcbride MD [address], [place], [address], [facility] 01/29/2024 16:27:25 03/18/2024 text/html Primary care/Referring provider: Renan Mcbride MD During the [facility] home sleep study on 03/12/24, AHI = 35, supine AHI = 36. At home, the patient sleeps from 11 pm to 6 am and wakes up without an alarm. Snoring: moderate, since . Snorting: no Choking: yes Coughing: yes Gasping: yes Gagging: yes Sighing: no Witnessed apnea: yes Twitching or jerking of leg(s), arm(s), body, head: yes Teeth grinding: no Teeth clenching: no Sleeptalking: no Sleepwalking: no Sleep crying: no Bedwetting: no Tongue/lip/gum/enrique k biting: no Sleeping with open mouth: yes Sleep paralysis: no Hypnagogic hallucinations: no Hypnopompic hallucinations: no Vivid dreams: no Difficulty with sleep onset: no Difficulty with sleep maintenance: yes Sleep interruptions: coughing, gasping Patient wakes up with: fatigue, xerostomia, headaches Daytime cataplexy: no Morning hypersomnolence: yes Afternoon hypersomnolence: yes Caffeine sources in diet: tea 1/3 cup per day, soda 1 bottle per week, energy drink 1/2 can of Red Bull per day Associated medical and psychiatric conditions: Congestive heart failure: no Coronary artery disease: no Myocardial infarction: no Hypertension: yes Stroke: no Bronchial asthma: no Chronic obstructive pulmonary disease: no Depression: no Bipolar disorder: no Anxiety: no Panic disorder: no Posttraumatic stress disorder: no Attention deficit and hyperactivity disorder: no Obsessive Compulsive disorder: no Schizophrenia: no Schizoaffective disorder: no Personality disorder: no Chronic analgesic use: no Chronic sedative/hypnotic use: no EPWORTH SLEEPINESS SCALE (ESS) CHANCE OF DOZING SCORE 0 = would never doze 1 = slight chance of dozing 2 = moderate chance of dozing 3 = high chance of dozing SITUATION AND CHANCE OF DOZING Sitting and reading - 3 Watching television - 3 Sitting inactive in a public place (e.g. a theater or meeting) - 1 As a passenger in a car for an hour without a break - 0 Lying down to rest in the afternoon when circumstances permit - 3 Sitting and talking to someone - 0 Sitting quietly after lunch without alcohol - 0 In a car, while stopped for a few minutes in the traffic - 0 TOTAL SCORE 10 Subjectively, patient has a moderate chance of dozing. Dayday Stanford MD [address] [place] [address], [place], [address], [place] [facility] 03/18/2024 11:48:44
--- OUTSIDE RECORDS SUMMARY | 2024-06-14 18:08 | XMS_ITS | Data Portability ---
Author Organization [facility] OFFICE Address [address] [place] [address] Care Team Providers Care Shirring Tender Name Role Phone STORMY LINDA Primary Care Provider Assessment No assessment recorded. Plan of Treatment Reminders Order Date Submit Date Provider Last Modified By Organization Details Last Modified Time Details Appointments None recorded. Lab None recorded. Referral None recorded. Procedures None recorded. Surgeries None recorded. Imaging electrocard iogram [address] (Imaging), [address] [place], [address], 13:01:00 Medication Orders losartan 100 mg tablet 2021 022 [facility] #[id number], [address] [place], [place], [id number], 15:48:48 amlodipine 10 mg tablet 2021 022 [facility] #[id number], [address] [place], [place], [id number], 15:48:46 aspirin 81 mg tablet,jarret yed release 2021 022 [facility] #[id number], [address] [place], [place], [id number], 15:48:50 carvedilol 6.25 mg tablet 2021 022 [facility][id number], [address] [place], [place], [id number], 15:48:47 Patient TargetsNo targets recorded. Patient Instructions Encounter Date Encounter Id Patient Instructions Last Modified By Organization Details Last Modified Time 10/14/2021 [id number] high cholesterol : care instructions [email or web address] Not available 10/14/2021 15:48:36 high blood pressure: care instructions [email or web address] Not available 10/14/2021 15:48:36 learning about high blood pressure [email or web address] Not available 10/14/2021 15:48:36 Reason for Referral None Reported. Results Created Date Observation Date Name Description Value Unit Range Abnormal Flag Note LastModifiedBy Organization Detail LastModifiedTime 10/16/19 22 10/14/2021 elect emil barkergr am No observ ation record ed. [email or web address] Not Available 2021 09:05:22 Result Notes None recorded. Problems Name Problem SNOMED Code Status Onset Date Resolution Date Notes Provider Name and Address Organization Details Recorded Time Chest pain 68936715 Active 2021 Estrada Mesto null, [place] - [facility] 2 17:15:53 Vitamin D deficiency 75898468 Active 2021 Estrada [place] - [facility] 2 17:16:40 Hyperlipidemia 34484743 Active 2021 Estrada [place] - [facility] 2 17:18:11 Gout 95498684 Active 2021 Estrada [place] - [facility] 2 17:16:56 Obesity 764044264 Active 2021 Estrada [place] - [facility] 2 17:17:04 Benign essential hypertension 9375544 Active 2021 Estrada [place] - [facility] 2 17:18:06 Gastroesophage al reflux disease without esophagitis 436670339 Active 2021 Estrada M[place] - [facility] 2 17:17:30 Steatosis of liver 150495874 Active 2021 Natalie V[place], [place] - [facility] 2 17:17:47 Chronic kidney disease stage 3 265239560 Active 2021 Estradanancy V[place], [place] - [facility] 2 17:18:44 Anterior chest wall pain 685742749 Active 2021 Natalie [place] - [facility] 2 17:19:03 Chest discomfort 372682242 Active 2021 Mario Cespedes null, [place] - [facility] 2 15:45:57 Problem Notes None recorded. Procedures Surgical History None recorded. Imaging Results Imaging Date Name Status LastModified by Organization Details LastModified Time 10/14/2021 electrocardiogram completed [email or web address] Informa tion not available 10/15/2021 09:05:22 Procedure Notes None recorded. Medical Equipment None Reported. Allergies No known drug allergies Medications Name Sig Start Date Stop Date Status Note LastModified by Organization Details LastModified Time carvedilol 6.25 mg tablet Take 1 tablet twice a day by oral route. active Not Available Not Available No t Available atorvastat in 20 mg tablet TAKE 1 TABLET BY MOUTH EVERY DAY AT BEDTIME active Not Available Not Available No t Available allopurino l 100 mg tablet TAKE 1 TABLET BY MOUTH TWICE DAILY DIRECTED active Not Available Not Available No t Available aspirin 81 mg tablet,del ayed release TAKE 1 TABLET BY MOUTH EVERY DAY WITH FOOD 2021 active Not Available Not Available Not Avai lable famotidine 20 mg tablet TAKE 1 TABLET BY MOUTH EVERY 12 HOURS DIRECTED active Not Available Not Available No t Available amlodipine 10 mg tablet TAKE 1 TABLET BY MOUTH EVERY DAY IN THE EVENING active Not Available Not Available No t Available metoprolol tartrate 50 mg tablet TAKE 1 TABLET BY MOUTH TWICE DAILY DIRECTED 10/14 completed pt no longer takes 10/14/21 nj Not Available Not Available Not Available hydrochlor othiazide 12.5 mg capsule TAKE 1 CAPSULE BY MOUTH EVERY DAY IN THE MORNING 10/14 completed pt no longer takes 10/14/21 nj Not Available Not Available Not Available allopurino l 300 mg tablet TAKE 1 TABLET BY MOUTH EVERY DAY AFTER A MEAL active Not Available Not Available No t Available ergocalcif lashawn (vitamin D2) 1,250 mcg (50,000 unit) capsule TAKE 1 CAPSULE BY MOUTH EVERY WEEK DIRECTED active Not Available Not Available No t Available methylpred nisolone 4 mg tablets in a dose pack FOLLOW PACKAGE DIRECTIO NS active pt no longer takes 10/14/21 nj Not Available Not Available Not Available colchicine 0.6 mg tablet TAKE 1 TABLET BY MOUTH 3 TIMES A WEEK FOR 14 DAYS DIRECTED active Not Available Not Available No t Available losartan 100 mg tablet TAKE 1 TABLET BY MOUTH EVERY DAY IN THE MORNING active Not Available Not Available No t Available atenolol 50 mg tablet TAKE 1 TABLET BY MOUTH DAILY active Not Available Not Available No t Available naproxen 500 mg tablet TAKE 1 TABLET BY MOUTH TWICE DAILY WITH FOOD active Not Available Not Available No t Available Vitals Date Recorded Body weight Body mass index (BMI) Body height Oxygen saturation Oxygen saturation in Arterial blood by Pulse oximetry Heart rate Systolic blood pressure Diastolic blood pressure Provider Name and Address Organization Details Last Updated DateTime 2 049740. 23 g 44.5 kg/m2 170.18 cm 98 % 98 % 89 /min 128 mm[Hg] 72 mm[Hg] CARLOS BOLAND [facility] 2 15:18:52 Social History Question Answer Notes LastModified by Organizat ion Details LastModified Time Tobacco Smoking Status Never Smoker Natalie hernandez [facility] 10/12/2021 17:21:38 What Is Your Level Of Alcohol Consumption? Occasional Information not available 10/12/2021 What Is Your Level Of Caffeine Consumption? Occasional Information not available 10/12/2021 What Type Of Diet Are You Following? REGULAR Information not available 10/12/2021 What Is Your Relationship Status? Single Information not available 10/12/2021 Do You Use Any Illicit Or Recreational Drugs? No Information not available 10/12/2021 Sex: Male Functional Status Question Answer Note LastModified by Organization D etails LastModified Time What is your exercise level? None Information not available 10/12/2021 Mental Status None recorded. Family History Relationship Description Onset Age of this Age Resolved Age Notes LastModified by Organization Details LastModified Time Mother Hypertensive disorder [email or web address] Not available 2021 17:19:24 Father Diabetes mellitus [email or web address] Not available 2021 17:19:37 Medical History No medical history recorded. Past Encounters Encounter ID Performer Location Encounter Start Date Encounter Closed Date Diagnosis/Indication Diagnosis SNOMED-CT Code Diagnosis ICD10 Code Diagnosis Note [id number] Mario Cespedes [facility] OFFICE [address] [place] [address] 10/14/2021 14:56:28 10/14/2021 15:42:35 Chest discomfort 676690992 R07.89 Patient presents with {{chest* a rm back ja w}} pain {{typical of angina* wi th atypical features}} . Given the history, exam findings and {{high* in termediate low}} cardiac risk factors, I {{feel* do not feel}} additional investigat ion is warranted. I have made arrangemen ts in the near future for {{an exercise stress echocardio gram to evaluate for any ischemia, structural heart disease, or exercise induced arrythmia* an exercise stress nuclear test an exercise stress nuclear test (stress echo not possible due to COPD or obesity) a n exercise stress nuclear test and an echocardio gram to evaluate for any ischemia or structural heart disease a pharmacolo gic stress nuclear test due to reduced functional capacity or conduction abnormalit y cardiac catheteriz ation an echocardio gram to evaluate left ventricula r function and any structural heart disease or valvular abnormalit y}}. The procedure was discussed with the patient, and risks, benefits, and alternativ e options were explained. {{ The patient was informed about heart catheteriz ation and interventi onal procedures and agrees to proceed.}} Appropriat e labwork {{has has not*}} been performed recently, therefore I {{have not have*} } made arrangemen ts for further testing. I have asked the patient to curtail exercise and activities until our investigat ion is complete. I have {{made no made the following* }} adjustment s to the present medical regimen. {{ Patient has been started on daily aspirin.}} {{ Patient has been given a prescripti on for sublingual nitroglyce rin.}} Benign ess ential hypertension 8010831 I10 Patient's blood pressure is {{well-con trolled no t well-contr olled rela tively well-contr olled#}} on present medical therapy. Patient is {{tolerati ng, without difficulty ,* having side effects with}} the current medication s. I have {{not made made the following* }} changes to the current regimen. change atenolol for carvedilol {{ Patient is advised to maintain a blood pressure diary.*}} Cont low Na diet. Hyperlipidemia 19026622 E78.5 FLP Health Concerns Section Related Observation LastModified by Organization Detai ls LastModified Time None Recorded Concern Status LastModified by Organization Details LastModified Time None Recorded Advance Directives Directive None Recorded Payers Encounter Date Sequence Insurance Name Policy Number Policy Hutchison Covered Member ID Hutchison Member ID Guarantor Name 10/14/2021 1 [facility] (MEDICAID REPLACEMENT - O) [id number] Amari Roberts [id number] Amari Roberts Notes Date Note Type Note Provider Name and Address Organization Details Recorded Time 10/14/2021 text/html 10/14/21CC : [address] discomfort, HTN HPI: Amari ROBERTS is a 36 years-old Male with h/o Hypertension and Hyperlipidemia who presents for initial cardiovascular evaluation. pt had CP one month ago in [facility]. BP was high HTN sometimes goes up 160/110, sometimes do not take his pills because they caused him to have depression Today reports:Denies chest pain.Denies shortness of breath at rest. Has mild dyspnea on exertion.No orthopnea. No PNDs.Denies heart palpitations.Denies dizziness. Denies syncope or near syncope.No ankle or leg edema.No major bleeding events.No reported side effects from medications. Taking medications as prescribed with no missed doses.Denies snoring, daytime somnolence and AM headache.*Last LDL was done on .Pt takes. Results from this visit, or from the past: EKG (10/14/21): NSR, NSST changes ECHO 08/21/21:LV chamber size is normal,LVEF 60-65%,normal LV diastolic function,trace pulmonic regurgitation. Chest x ray 08/19/21:no acute cardiopulmonary disease. LAST Lou - [facility] 10/14/2021 15:50:07
[2024-06-14 18:10] VITALS: BP 183/120; PULSE 84; RESP 16; TEMP 36.3; O2SAT 98
--- NOTE | 2024-06-14 18:27 | ED.MALEGU ---
HPI - Male Genitourinary General Chief complaint: Urogenital-Male <Laina Baltazar PA-C - Last Filed: 06/14/24 18:28> Stated complaint: std check <Laina Baltazar PA-C - Last Filed: 06/14/24 18:28> Time Seen by Provider: 06/14/24 18:30 <Laina Baltazar PA-C - Last Filed: 06/14/24 18:28> Focused HPI: 38-year-old male presents emergency department for STD testing. Patient states he was contacted by someone here unprotected sex with who told him she had an STD. Patient is unsure which STD she tested positive for. He came to the ED to get checked. He denies dysuria, hematuria, testicular scrotal pain, penile discharge, abdominal pain, fever. Notes he has had 3 sexual partners in the past 6 months. Patient is requesting to wait for STD results. GENERAL: Well-appearing, well-nourished, and in no acute distress. HEAD: Normocephalic, atraumatic. CHEST: Clear to auscultation. ?No respiratory distress. HEART: Regular rate and rhythm.? NEURO: ?Alert and oriented x3. Patient screened in triage and initial orders placed.? ?Additional care and disposition to be based upon?diagnostic testing and treatment. <Laina Baltazar PA-C - Last Filed: 06/14/24 18:28> Focused HPI: 38-year-old male presents emergency department for STD testing. Patient states he was contacted by someone he had unprotected sex with who told him she had an STD. Patient is unsure which STD she tested positive for. He came to the ED to get checked. He denies dysuria, hematuria, testicular scrotal pain, penile discharge, abdominal pain, fever. Notes he has had 3 sexual partners in the past 6 months. Patient is requesting to wait for STD results. GENERAL: Well-appearing, well-nourished, and in no acute distress. HEAD: Normocephalic, atraumatic. CHEST: Clear to auscultation. ?No respiratory distress. HEART: Regular rate and rhythm.? NEURO: ?Alert and oriented x3. Patient screened in triage and initial orders placed.? ?Additional care and disposition to be based upon?diagnostic testing and treatment. <Araceli Baird APRN - Last Filed: 06/14/24 21:03> History of Present Illness HPI Narrative: I agree with the assessment and documentation of Laina Baltazar PA-C. <Araceli Baird APRN - Last Filed: 06/14/24 21:03> Related Data Home medications: Home Medications ?Medication ?Instructions ?Recorded ?Confirmed ?Last Taken ?Type allopurinol 100 mg tablet 100 mg PO BID 01/08/21 02/14/22 Unknown History amlodipine 10 mg tablet 10 mg PO DAILY 01/08/21 02/14/22 Unknown History atorvastatin 20 mg tablet 20 mg PO DAILY 01/08/21 02/14/22 Unknown History losartan 100 mg tablet 100 mg PO DAILY 01/08/21 02/14/22 Unknown History <Laina Baltazar PA-C - Last Filed: 06/14/24 18:28> Allergies/Adverse reactions: Allergies Allergy/AdvReac Type Severity Reaction Status Date / Time No Known Allergies Allergy Mild Verified 06/14/24 18:09 <Laina Baltazar PA-C - Last Filed: 06/14/24 18:28> Review of Systems Review of Systems: All systems reviewed & are unremarkable except as noted in HPI and below <Araceli Baird APRN - Last Filed: 06/14/24 21:03> [facility] Past Medical History Medical History: Medical History GERD (gastroesophageal reflux disease) Gout Hypertension <Laina Baltazar PA-C - Last Filed: 06/14/24 18:28> Surgical History Surgical History: Surgical History No pertinent past surgical history <Laina Baltazar PA-C - Last Filed: 06/14/24 18:28> Family History Family History: Family History Other Hypertension <Laina Baltazar PA-C - Last Filed: 06/14/24 18:28> Social History Social History: Social History Smoking status: Never smoker Alcohol intake: current Drinks per week: 4 Alcohol use details: Drinks a shot after work Substance use: never Spiritual care concerns: No <Laina Baltazar PA-C - Last Filed: 06/14/24 18:28> Exam Narrative: GENERAL: Well appearing, well-nourished, non-toxic, in no acute distress. HEAD: Normocephalic, atraumatic. NECK: Supple. No adenopathy, no masses. RESPIRATORY: Airway patent, respirations nonlabored. Clear to auscultation bilaterally, no rales, rhonchi, wheezing. CARDIOVASCULAR: Regular rate and rhythm without murmurs, rubs, or gallops. Peripheral pulses 2+ and equal bilaterally. ABDOMINAL: Soft, nontender, nondistended, no hepatosplenomegaly. Normoactive BS. MUSCULOSKELETAL: Moves all extremities. Strength/ROM intact without gross deformities. SKIN: Warm, dry, normal color. No rashes. NEURO: A&O X3. Speech clear. Cranial nerves II-XII intact. No ataxic movements. PSYCHIATRIC: Appropriate mood and affect. Normal interaction. <Araceli Baird, MIRIAM - Last Filed: 06/14/24 21:03> Course Vital Signs Vital signs: Vital Signs Temperature 36.3 C L 06/14/24 18:10 Pulse Rate 84 06/14/24 18:10 Respiratory Rate 16 06/14/24 18:10 Blood Pressure 183/120 H 06/14/24 18:10 Pulse Oximetry 98 06/14/24 18:10 Temperature 36.3 C L 06/14/24 18:10 Pulse Rate 84 06/14/24 18:10 Respiratory Rate 16 06/14/24 18:10 Blood Pressure 183/120 H 06/14/24 18:10 Pulse Oximetry 98 06/14/24 18:10 <Laina Baltazar PA-C - Last Filed: 06/14/24 18:28> Vital Signs Temperature 36.3 C L 06/14/24 18:10 Pulse Rate 84 06/14/24 18:10 Respiratory Rate 16 06/14/24 18:10 Blood Pressure 183/120 H 06/14/24 18:10 Pulse Oximetry 98 06/14/24 18:10 Temperature 36.3 C L 06/14/24 18:10 Pulse Rate 84 06/14/24 18:10 Respiratory Rate 16 06/14/24 18:10 Blood Pressure 183/120 H 06/14/24 18:10 Pulse Oximetry 98 06/14/24 18:10 <Araceli Baird APRN - Last Filed: 06/14/24 21:03> MDM - Male Genitourinary MDM Narrative Medical decision making narrative: 38-year-old male presents emergency department for STD testing. Patient states he was contacted by someone he had unprotected sex with who told him she had an STD. Patient is unsure which STD she tested positive for. He came to the ED to get checked. He denies dysuria, hematuria, testicular scrotal pain, penile discharge, abdominal pain, fever. Notes he has had 3 sexual partners in the past 6 months. Labs Ordered: UA, Trichomonas, GC chlamydia Imaging Ordered: None necessary Medications Ordered: None necessary Results: STD testing was negative, urinalysis indicates pt has a UTI Diagnosis: Concern for STD, UTI Patient Education/Shared MDM: Results shared with patient. Extensive discussion was had between UNDERGROUND MINING SECTION FOREMAN and patient regarding the need for treatment at this time. Patient verbalized understanding that he does not need treatment as his tests were negative. His urinalysis then indicated he has a UTI so he will be treated. Patient strongly advised to maintain hydration status upon discharge and follow-up with his PCP as needed. He will be discharged home with no new prescriptions at this time. Strict return precautions provided. Patient verbalized understanding is in agreement with plan. Vital signs stable at time of discharge. All questions answered. <Araceli Baird APRN - Last Filed: 06/14/24 21:03> Differential Diagnosis Differential diagnosis: Likely urinary tract infection and prostatitis <Araceli Baird APRN - Last Filed: 06/14/24 21:03> Lab Data Attestation: I reviewed the patient's lab results. <Araceli Baird APRN - Last Filed: 06/14/24 21:03> Labs: Lab Results 06/14/24 06/14/24 Range/Units 18:15 18:16 Urine Color Yellow (Yellow) Urine Appearance Clear (Clear) Urine pH 6.5 (5.0-9.0) Ur Specific Henriette 1.015 (1.001-1.035) Urine Protein Negative (Negative) mg/dL Urine Glucose (UA) Negative (Negative) mg/dL Urine Ketones Negative (Negative) mg/dL Ur Blood (Man) Negative (Negative) Urine Nitrate Negative (Negative) Urine Bilirubin Negative (Negative) Urine Urobilinogen 0.2 (<2.0) mg/dL Leukocyte Esterase Rfl 1+ H (Negative) MAUDE/UL Urine RBC 0-2 (0-2) /hpf Urine WBC 51-100 H (0-3) /hpf Ur Squamous Epith Cells None seen (Few) /hpf Urine Bacteria None seen /hpf Urine Casts 0-2 C. trachomatis (PCR) Not detected (NOT DETECTE) N. gonorrhoeae (PCR) Not detected (NOT DETECTE) T. vaginalis (PCR) Not detected (NOT DETECTE) <Laina Baltazar PA-C - Last Filed: 06/14/24 18:28> Lab Results 06/14/24 06/14/24 Range/Units 18:15 18:16 Urine Color Yellow (Yellow) Urine Appearance Clear (Clear) Urine pH 6.5 (5.0-9.0) Ur Specific Henriette 1.015 (1.001-1.035) Urine Protein Negative (Negative) mg/dL Urine Glucose (UA) Negative (Negative) mg/dL Urine Ketones Negative (Negative) mg/dL Ur Blood (Man) Negative (Negative) Urine Nitrate Negative (Negative) Urine Bilirubin Negative (Negative) Urine Urobilinogen 0.2 (<2.0) mg/dL Leukocyte Esterase Rfl 1+ H (Negative) MAUDE/UL Urine RBC 0-2 (0-2) /hpf Urine WBC 51-100 H (0-3) /hpf Ur Squamous Epith Cells None seen (Few) /hpf Urine Bacteria None seen /hpf Urine Casts 0-2 C. trachomatis (PCR) Not detected (NOT DETECTE) N. gonorrhoeae (PCR) Not detected (NOT DETECTE) T. vaginalis (PCR) Not detected (NOT DETECTE) <Araceli Baird APRN - Last Filed: 06/14/24 21:03> Discharge Plan Discharge Clinical Impression: Concern about STD in male without diagnosis, Screening for STD (sexually transmitted disease), Urinary tract infection <Laina Baltazar PA-C - Last Filed: 06/14/24 18:28> Patient Disposition: Home, Self-Care <Laina Baltazar PA-C - Last Filed: 06/14/24 18:28> Condition: Stable <Laina Baltazar PA-C - Last Filed: 06/14/24 18:28> Instructions: Antibiotic Form, Safe Sex Practices (ED) <ARSALAN Reina Last Filed: 06/14/24 18:28> Additional Instructions: Please return to the ER with any worsening symptoms. Follow-up with primary care provider as needed, especially if you develop urinary symptoms. Take all regularly scheduled medications as prescribed. <Laina Baltazar PA-C - Last Filed: 06/14/24 18:28> Patient Language: Citizen Of [place] <Laina Baltazar PA-C - Last Filed: 06/14/24 18:28> Prescriptions: New doxycycline monohydrate 100 mg capsule 100 mg PO BID Qty: 14 0RF No Action atorvastatin 20 mg tablet 20 mg PO DAILY allopurinol 100 mg tablet 100 mg PO BID amlodipine 10 mg tablet 10 mg PO DAILY losartan 100 mg tablet 100 mg PO DAILY indomethacin 50 mg capsule 50 mg PO TID 7 Days Qty: 21 0RF Rx Instructions: administer with food or milk atenolol 50 mg Tablet 50 mg PO DAILY 30 Days Qty: 30 0RF <Laina Baltazar PA-C - Last Filed: 06/14/24 18:28> Follow-up/Referrals: Reed,MD Renan [Primary Care Provider] - <Laina Baltazar PA-C - Last Filed: 06/14/24 18:28> Stand Alone Forms: Work/School Release IP <Laina Baltazar PA-C - Last Filed: 06/14/24 18:28> Time of Disposition: 21:03 <Laina Baltazar PA-C - Last Filed: 06/14/24 18:28> 21:03 <Araceli Baird APRN - Last Filed: 06/14/24 21:03>
--- OUTSIDE RECORDS SUMMARY | 2024-06-14 18:57 | XMS_ITS | Clinical Summary ---
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
--- OUTSIDE RECORDS SUMMARY | 2024-06-14 18:57 | XMS_ITS | CONTINUITY OF CARE DOCUMENT ---
Author Name nevaeh herring Address Unknown Organization [facility] Address [address] [place] [address] Phone [phone] Care Team Providers Care Vessel Traffic Officer Name Role Phone Carlo Magdaleno MD Unavailable [phone] Carlo Magdaleno MD Unavailable [phone] [facility], [facility] K Unavailable PROBLEMS Condition Status Date Provider Notes Family [...] In-person encounter Office Visit Carlo Magdaleno MD [place] [facility] Snoring - In-person encounter Office Visit Carlo Magdaleno MD [facility] Family History of Hypertension:Cardiovascular screeningHTN essentialShortness of breathFamily history of CADObesityHyperlipidemia VITAL SIGNS Date Observation Value Provider Body Mass Index (Ratio) 42.91 kg/m2 Dashawn Kuo pulse rate 79 /min Tamara Box blood pressure, cuff size regular Raimundo Box blood pressure, diastolic 94 mm[Hg] Fa cholo [place] blood pressure, systolic 154 mm[Hg] Gomezvenu aguilera Box oxygen saturation, oximetry 98 % Tamara [place] respiratory rate E&M 16 /min Tamara onofre weight E&M 274 [lb_av] Tamara [place] height E&M 67 [in_i] [facility] Body Mass Index (Ratio) 43.85 kg/m2 Martha rhodes Kayla blood pressure, diastolic 90 mm[Hg] Li nkLog blood pressure, systolic 150 mm[Hg] Beatris kLog blood pressure, resting Yes Dhaval joy [place] blood pressure, diastolic 90 mm[Hg] [facility] blood pressure, systolic 150 mm[Hg] [facility] oxygen saturation, oximetry 93 % Sang [...] Payer name Policy type / Coverage type [place] red libertarian ID [facility] [id number] ADVANCE DIRECTIVES Name Date DISCUSSED - NO DECISION MADE TREATMENT PLAN Date Name Performer [id number],C,O n statin. H is updated medication list for this problem includes: Atorvastatin Calcium 20 Mg Oral Tablet (Atorvastatin calcium) Leticia Garza [id number],C, B P today: 150/90 His updated medication list for this problem includes: Losartan Potassium 100 Mg Oral Tablet (Losartan potassium) Aspirin Low Dose 81 Mg Oral Tablet Delayed Release (Aspirin) Amlodipine Besylate 5 Mg Oral Tablet (Amlodipine besylate) Leticia Garza [id number],C,E ncouraged him to lose weight and continue taking all medications. Leticia Garza [id number],C,T he pt was recently admitted to [facility]. He complained of SOB and [...] Mg Tablet (Amlodipine) ..... Tablet by mouth Aleksanrd Kuo Cardiology:Pt had a recent admission to [facility] due to CP. He had uncontrolled HTN, [...] Cardiology:The pt wa s recently admitted to [facility]. He complained of SOB and [...]
[2024-06-14 19:34] LABS: Trichomonas Vag PCR NOT DETECTED (NOT DETECTE)
[2024-06-14 19:55] LABS: Chlamydia trachomatis NOT DETECTED (NOT DETECTE); Neisseria gonorrhoeae PCR NOT DETECTED (NOT DETECTE)
[2024-06-14 20:30] LABS: Add Urine Microscopic? YES; Appearance Urine Clear (Clear); Bacteria Urine None Seen /hpf; Bilirubin Urine Negative (Negative); Blood Urine Negative (Negative); Color Urine Yellow (Yellow); Glucose Urine UA Negative (Negative); Ketones Urine Negative (Negative); Leukocyte Esterase Ur 1+ LEU/UL (Negative); Nitrate Urine Negative (Negative); Non Pathogenic Casts 0-2; Protein Urine Negative (Negative); RBC Urine 0-2 /hpf (0-2); Specific Grav Ur 1.015 (1.001-1.035); Squamous Epithelial Cell Urine None Seen /hpf (Few); Urobilinogen Urine 0.2 mg/dL (<2.0); WBC Urine 51-100 /hpf (0-3); pH Urine 6.5 (5.0-9.0)
[2024-06-14] MEDS: cefTRIAXone 1 GM VIAL 0.5 GM IM (21:47)
[2024-06-14] MEDS: DOXYCYCLINE HYCLATE 100 MG TABLET PO (21:48)
== END 2024-06-14 21:58 | disposition home or self-care (01) ==
PROVIDERS: Family Medicine; Emergency Provider Registered Nurse; PCP Family Medicine
DX: Z20.2 Contact with and (suspected) exposure to infections with a predominantly sexual mode of transmission (principal); Z11.3 Encounter for screening for infections with a predominantly sexual mode of transmission; N39.0 Urinary tract infection, site not specified; I10 Essential (primary) hypertension; K21.9 Gastro-esophageal reflux disease without esophagitis; M10.9 Gout, unspecified; Z79.899 Other long term (current) drug therapy
CPT/HCPCS: 81001; 87086; 87491; 87591; 87661; 96372; 99283; A9270; J0696; J2003

== ENCOUNTER 2024-10-30 16:05 | Emergency (ER) | payer BC, SELFPAY ==
[2024-10-30 16:14] VITALS: BP 185/109; PULSE 84; RESP 16; TEMP 36.6; O2SAT 100
--- NOTE | 2024-10-30 16:21 | ED.NEUROSD ---
HPI - Neuro Symptoms/Deficit General Chief Complaint: Neuro Symptoms/Deficit Stated Complaint: Head Issues Time Seen by Provider: 10/30/24 16:08 Source: patient Mode of arrival: ambulatory Limitations: no limitations History of Present Illness HPI Narrative: Amari is a 39-year-old male patient presenting to the clinic today with complaints of left-sided facial twitching, paresthesia, and a knot area to the left posterior cervical/occipital area. He reports symptoms have been going on for over 1 week. He has not taken anything to treat his symptoms. History of high blood pressure. Has not taken any of his blood pressure medications today as he has not eaten yet today. Denies headache, visual changes, eye watering, drooling, difficulty swallowing, weakness, difficulty walking chest pain, or shortness of breath. Related Data Home Medications ?Medication ?Instructions ?Recorded ?Confirmed ?Last Taken ?Type allopurinol 100 mg tablet 100 mg PO BID 01/08/21 02/14/22 Unknown History amlodipine 10 mg tablet 10 mg PO DAILY 01/08/21 02/14/22 Unknown History atorvastatin 20 mg tablet 20 mg PO DAILY 01/08/21 02/14/22 Unknown History losartan 100 mg tablet 100 mg PO DAILY 01/08/21 02/14/22 Unknown History Allergies Allergy/AdvReac Type Severity Reaction Status Date / Time No Known Allergies Allergy Mild Verified 10/30/24 16:08 Review of Systems Review of Systems: Pertinent positives per HPI. Patient denies any fever, chills, rash, headache, visual changes, dizziness, cough, runny nose, sore throat, shortness of breath, chest pain, palpitations, nausea, vomiting, diarrhea, constipation, abdominal pain, or any urinary issues. [facility] Past Medical History Medical History GERD (gastroesophageal reflux disease) Gout Hypertension Surgical History Surgical History No pertinent past surgical history Family History Family History Other Hypertension Social History Social History Smoking status: Never smoker Alcohol intake: current Drinks per week: 4 Alcohol use details: Drinks a shot after work Substance use: never Spiritual care concerns: No Comments At the time of my signature, I reviewed and agree with the nursing past medical, surgical, social, and family history. There is no relevant family history pertinent to the patient complaint. Exam Narrative: General: Well-developed, well nourished, in no apparent distress Head: Normocephalic, atraumatic Eyes: Pupils equally round and reactive to light bilaterally, EOM intact, sclera and conjunctive clear, no discharge, lids normal Ears: TMs intact and clear, ear canals clear, no drainage, grossly hearing normal. Nose: Nares patent, no discharge, no inflammation, no sinus tenderness. Mouth: Oropharynx without lesions or masses, good dentition, MMM. Tongue midline, even rise and fall of uvula Neck: Supple, trachea midline, no enlargement of anterior or posterior cervical nodes, no thyroid masses or goiter palpable. Mass to the left posterior cervical/occipital area is movable and feels fluctuant Cardio: Regular rate and rhythm, s1 and s2 normal, no murmur appreciated. Resp: Clear to auscultation bilaterally anteriorly and posteriorly, no rhonchi, rales, wheezing or rubs Musculoskeletal: No deformity, non-tender to palpation, grossly normal range of motion, muscle strength strong and equal in bilateral upper and lower extremities, peripheral pulse strong, no edema, no cyanosis, normal gait and station Neuro: Alert and oriented x4 with normal speech, no focal deficits, facial twitching around the left eye, numbness sensation in the left cheek, cranial nerves I through XII intact, muscle strength 5 out of 5, sensation intact bilaterally, negative Romberg test Course Course Emergency Course: Portions of this record may have been created with voice recognition software. Level of Care: Express Care Visit Vital Signs Vital signs: Vital Signs Temperature 36.6 C 10/30/24 16:14 Pulse Rate 84 10/30/24 16:14 Respiratory Rate 16 10/30/24 16:14 Blood Pressure 185/109 H 10/30/24 16:14 Pulse Oximetry 100 10/30/24 16:14 Oxygen Delivery Room Air 10/30/24 16:14 Temperature 36.6 C 10/30/24 16:14 Pulse Rate 84 10/30/24 16:14 Respiratory Rate 16 10/30/24 16:14 Blood Pressure 165/105 H 10/30/24 16:37 Pulse Oximetry 100 10/30/24 16:14 Oxygen Delivery Room Air 10/30/24 16:14 Vital signs reviewed MDM - Neuro Symptoms/Deficit MDM Narrative Medical decision making narrative: At the time of visit patient is resting comfortably on the exam table. Patient appears to be nontoxic. Complaints of left-sided facial twitching, paresthesia, and a knot area to the left posterior cervical/occipital area. He reports symptoms have been going on for over 1 week. He has not taken anything to treat his symptoms. History of high blood pressure. Has not taken any of his blood pressure medications today as he has not eaten yet today. Denies headache, visual changes, eye watering, drooling, difficulty swallowing, weakness, difficulty walking chest pain, or shortness of breath. Blood pressure 185/109 in the right arm and 165/105 in the left arm. On exam patient has some facial twitching around the left eye with some reported numbness to the left cheek. Neuro exam is negative. Mass to the left posterior cervical/occipital area is movable and feels fluctuant-likely cyst verses lipoma Plan: Patient reporting facial twitching, numbness, and a mass area to the left posterior cervical/occipital area. Symptoms have been going on for over 1 week. Discussed patient's case with Dr. Estrella in the emergency room-can offer patient's CT of the head and electrolytes labs in the ED patient chooses to go to the emergency room. Shared decision making performed. Offer to send patient to the ER for further evaluation as he can get labs and a possible head CT verses following up with his primary care doctor tomorrow. Patient states he is busy the for the rest of the evening/night and would like to go to the emergency room tomorrow morning. Explained to the patient that the emergency room is open 24 hours and he can go at any time- if he feels worse he should go immediately and he voiced understanding. Also recommend follow-up with his PCP for his hypertension/mass to the posterior cervical occipital area. Supportive measures were discussed with the patient and they voiced understanding discharge instructions and agrees to treatment plan. Return precautions reviewed Differential Diagnosis Differential diagnosis: Likely subarachnoid hemorrhage, cerebrovascular accident, multiple sclerosis, transient cerebral ischemia and other (Hernandez's palsy, electrolyte imbalance, brain mass, trigeminal neuralgia, cyst, lipoma) Discharge Plan Discharge Clinical Impression: Hypertension, uncontrolled, Facial paresthesia, Facial twitching Patient Disposition: Home Condition: Stable Instructions: Antibiotic Form, Paresthesia (ED), Hypertension (ED) Additional Instructions: Shared decision making performed with you- Recommend going to the emergency room for electrolytes and possible head CT or close follow-up with your primary care doctor-call their office tomorrow Increase fluids and stay well hydrated Go home, eat, and take your blood pressure medications Take current medications as directed Go to the emergency room if your symptoms worsen-increase in pain, headache, blurry vision, visual changes, weakness, confusion, lethargy, difficulty swallowing, drooling, facial droop, chest pain, or shortness of breath. Patient Language: Romanian Prescriptions: No Action atorvastatin 20 mg tablet 20 mg PO DAILY allopurinol 100 mg tablet 100 mg PO BID amlodipine 10 mg tablet 10 mg PO DAILY losartan 100 mg tablet 100 mg PO DAILY atenolol 50 mg Tablet 50 mg PO DAILY 30 Days Qty: 30 0RF Follow-up/Referrals: Reed,MD Renan [Primary Care Provider] - Time of Disposition: 16:35 Quality NIHSS Nursing Documentation ED NIHSS nursing documentation: reviewed/agree
[2024-10-30 16:37] VITALS: BP 165/105
== END 2024-10-30 16:40 | disposition home or self-care (01) ==
PROVIDERS: Emergency Provider Nurse Practitioner Family; PCP Family Medicine
DX: I10 Essential (primary) hypertension (principal); R20.2 Paresthesia of skin; G51.32 Clonic hemifacial spasm, left; K21.9 Gastro-esophageal reflux disease without esophagitis; M10.9 Gout, unspecified
CPT/HCPCS: 99213; G0463

== ENCOUNTER 2024-10-31 13:17 | Emergency (ER) | payer BC, SELFPAY ==
--- NOTE | ~2024-10-31 | CT_ITS ---
EXAMINATION: CT brain wo con DATE: 10/31/2024 15:18 INDICATION: Facial twitching decreased sensation to distribution of the V2 branch of the left trigemi nal nerve. TECHNIQUE: Computed tomography (CT) of the head was performed without intravenous contrast. Sagittal and coronal reconstructions were performed. The mA was adjusted according to patient size. Iterative reconstruction technique was employed. The dose-length product was 681.00 mGy-cm. COMPARISON: None FINDINGS: No acute intracranial hemorrhage, acute infarction or abnormal extra axial fluid collection. Ventricl es are normal and symmetric. No mass/mass effect. No abnormalities identified in the region of the le ft foramen rotundum or pterygoid palatine fossa. Mucosal thickening surrounding an osteoma or heterot opic ossicle within the right sphenoid sinus. The orbits and mastoid air cells are normal. IMPRESSION: 1. Normal brain. No acute intracranial process. Reviewed, dictated and finalized at location A.
--- OUTSIDE RECORDS SUMMARY | 2024-10-31 13:20 | XMS_ITS | Clinical Summary ---
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
--- OUTSIDE RECORDS SUMMARY | 2024-10-31 13:20 | XMS_ITS | Continuity of Care Document ---
Author Organization [facility] Address [address] [place] [address] Phone Care Team Providers Care Asphalt Spreader Operator Name Role Phone Amezquita OD, Kvng Unavailable Unavailable Advance Directives Directive Yes / No Effective Date File Name No Information Encounters Encounter Description Practice Location Reason(s) For Visit Diagnoses Date Provider Providers Copied on Encounter [facility], [address] [place], [place], [id number], [place] tel:[phone] [address] [facility] [address] [facility] [address] [place] No Information [phone] Amezquita OD Kvng. [address] , [address], [place], [address], [place]. tel:[phone] Family History Family Member Type Diagnosis Age At Onset No Information Payers Payer name Insurance type Covered constitution party ID Authoriza tion(s) No Information Social History Type Description Quantity Date Captured Comments Sex Male Smoking Status No Information Chief Complaint And Reason For Visit No Information Reason For Referral Reason For Referral No Information History Of Present Illness Encounter Date Complaint History Of Prese nt Illness No Information Functional Status Date Functional Assessmen t No Information Instructions Date Instruction Additional Infor mation No Information Assessments Type Assessment Date No Information Patient Care Teams Name Effective Dates (start - stop) Status Members No Information
[2024-10-31 13:31] VITALS: BP 168/103; PULSE 89; RESP 18; TEMP 36.4; O2SAT 99
--- NOTE | 2024-10-31 15:03 | ED_ITS ---
HPI - General Adult General Chief complaint: Unspecified <Laina Baltazar PA-C - Last Filed: 10/31/24 15:07> Stated complaint: facial twitching <Laina Baltazar PA-C - Last Filed: 10/31/24 15:07> Time Seen by Provider: 10/31/24 15:55 <Laina Baltazar PA-C - Last Filed: 10/31/24 15:07> Focused HPI: 39-year-old male with history of hypertension presents to the emergency department for left eye twitching and a lump behind his left ear. Patient states he has had a lump behind his left ear for approximately 6 months. He is not notice if the areas become larger or more painful with time but would like to get it checked out. Denies any ear pain. He states over the past couple of weeks he has developed twitching to the left inferior eyelid. He states it is ?annoying?. He also states he feels like his left cheek along the V2 distribution has decreased sensation. He went to urgent care yesterday and was advised to come to the emergency department for to obtain a CT brain and have his electrolytes checked. Patient was unable to come to the ED last night but he came this morning for his workup. He denies head injury or trauma, vision changes. States this has never happened before. He does note he has been under increased stress and anxiety recently. GENERAL: Well-appearing, well-nourished, and in no acute distress. HEAD: Normocephalic, atraumatic. Palpable mobile mass posterior and inferior to the left mastoid with no overlying skin changes or tenderness ENT: Visible left inferior blepharospasm. CHEST: Clear to auscultation. ?No respiratory distress. HEART: Regular rate and rhythm.? NEURO: ?Alert and oriented x3. Reported decreased sensation along the left V2 distribution, otherwise cranial nerves 2-12 are intact. Strength 5/5 in BUE and BLE. Sensation intact in extremities. Patient screened in triage and initial orders placed.? ?Additional care and disposition to be based upon?diagnostic testing and treatment. <Laina Baltazar PA-C - Last Filed: 10/31/24 15:07> History of Present Illness HPI narrative: Agree with HPI <Javi Estrella MD - Last Filed: 10/31/24 17:06> Related Data Home medications: Home Medications ?Medication ?Instructions ?Recorded ?Confirmed ?Last Taken ?Type allopurinol 100 mg tablet 100 mg PO BID 01/08/21 02/14/22 Unknown History amlodipine 10 mg tablet 10 mg PO DAILY 01/08/21 02/14/22 Unknown History atorvastatin 20 mg tablet 20 mg PO DAILY 01/08/21 02/14/22 Unknown History losartan 100 mg tablet 100 mg PO DAILY 01/08/21 02/14/22 Unknown History <Laina Baltazar PA-C - Last Filed: 10/31/24 15:07> Allergies/adverse reactions: Allergies Allergy/AdvReac Type Severity Reaction Status Date / Time No Known Allergies Allergy Mild Verified 10/31/24 13:18 <Laina Baltazar PA-C - Last Filed: 10/31/24 15:07> Review of Systems 2 Review of Systems: All systems reviewed & are unremarkable except as noted in HPI and below <Javi Estrella MD - Last Filed: 10/31/24 17:06> Constitutional: Constitutional: Reports no additional constitutional complaints <Javi Estrella MD - Last Filed: 10/31/24 17:06> Cardiovascular: Cardiovascular: Reports no additional cardiovascular complaints <Javi Estrella MD - Last Filed: 10/31/24 17:06> Respiratory: Respiratory: Reports no additional respiratory complaints < Javi Estrella MD - Last Filed: 10/31/24 17:06> Gastrointestinal: Gastrointestinal: Reports no additional gastrointestinal complaints <Javi Estrella MD - Last Filed: 10/31/24 17:06> [facility]LY [facility] Past Medical History Medical History: Medical History GERD (gastroesophageal reflux disease) Gout Hypertension <Laina Baltazar PA-C - Last Filed: 10/31/24 15:07> Surgical History Surgical History: Surgical History No pertinent past surgical history <Laina Baltazar PA-C - Last Filed: 10/31/24 15:07> Family History Family History: Family History Other Hypertension <Laina Baltazar PA-C - Last Filed: 10/31/24 15:07> Social History Social History: Social History Smoking status: Never smoker Alcohol intake: current Drinks per week: 4 Alcohol use details: Drinks a shot after work Substance use: never Spiritual care concerns: No <Laian Baltazar PA-C - Last Filed: 10/31/24 15:07> Exam 2 Narrative: GENERAL: Well-appearing, well-nourished, and in no acute distress. HEAD: Normocephalic, atraumatic. EYES: PERRL and EOMI. ENT: Mucous membranes moist. CHEST: Clear to auscultation. No respiratory distress. HEART: Regular rate and rhythm. Normal peripheral pulses. EXTREMITIES: Normal range of motion. No edema. SKIN: Warm, dry, no rash. NEURO: No focal deficits. Alert and oriented x3. PSYCH: Normal mood and affect. <Javi Estrella MD - Last Filed: 10/31/24 17:06> Course Course Emergency Course: Resting comfortably. Symptoms improved with Tylenol. Motor lytes normal. Appropriate for discharge home. No evidence of the bells palsy. <Javi Estrella MD - Last Filed: 10/31/24 17:06> Vital Signs Vital signs: Vital Signs Temperature 97.5 F L 10/31/24 13:31 Pulse Rate 89 10/31/24 13:31 Respiratory Rate 18 10/31/24 13:31 Blood Pressure 168/103 H 10/31/24 13:31 Pulse Oximetry 99 10/31/24 13:31 Oxygen Delivery Room Air 10/31/24 13:31 Temperature 97.5 F L 10/31/24 13:31 Pulse Rate 89 10/31/24 13:31 Respiratory Rate 18 10/31/24 13:31 Blood Pressure 168/103 H 10/31/24 13:31 Pulse Oximetry 99 10/31/24 13:31 Oxygen Delivery Room Air 10/31/24 13:31 <Laina Baltazar PA-C - Last Filed: 10/31/24 15:07> Vital Signs Temperature 97.5 F L 10/31/24 13:31 Pulse Rate 89 10/31/24 13:31 Respiratory Rate 18 10/31/24 13:31 Blood Pressure 168/103 H 10/31/24 13:31 Pulse Oximetry 99 10/31/24 13:31 Oxygen Delivery Room Air 10/31/24 13:31 Temperature 97.5 F L 10/31/24 13:31 Pulse Rate 89 10/31/24 13:31 Respiratory Rate 18 10/31/24 13:31 Blood Pressure 168/103 H 10/31/24 13:31 Pulse Oximetry 99 10/31/24 13:31 Oxygen Delivery Room Air 10/31/24 13:31 <Javi Estrella MD - Last Filed: 10/31/24 17:06> Medical Decision Making Vital Signs Vital Signs: Vital Signs Temperature 97.5 F L 10/31/24 13:31 Pulse Rate 89 10/31/24 13:31 Respiratory Rate 18 10/31/24 13:31 Blood Pressure 168/103 H 10/31/24 13:31 Pulse Oximetry 99 10/31/24 13:31 Oxygen Delivery Room Air 10/31/24 13:31 Temperature 97.5 F L 10/31/24 13:31 Pulse Rate 89 10/31/24 13:31 Respiratory Rate 18 10/31/24 13:31 Blood Pressure 168/103 H 10/31/24 13:31 Pulse Oximetry 99 10/31/24 13:31 Oxygen Delivery Room Air 10/31/24 13:31 <Laina Baltazar PA-C - Last Filed: 10/31/24 15:07> Vital Signs Temperature 97.5 F L 10/31/24 13:31 Pulse Rate 89 10/31/24 13:31 Respiratory Rate 18 10/31/24 13:31 Blood Pressure 168/103 H 10/31/24 13:31 Pulse Oximetry 99 10/31/24 13:31 Oxygen Delivery Room Air 10/31/24 13:31 Temperature 97.5 F L 10/31/24 13:31 Pulse Rate 89 10/31/24 13:31 Respiratory Rate 18 10/31/24 13:31 Blood Pressure 168/103 H 10/31/24 13:31 Pulse Oximetry 99 10/31/24 13:31 Oxygen Delivery Room Air 10/31/24 13:31 <Javi Estrella MD - Last Filed: 10/31/24 17:06> Lab Data Result diagrams: 10/31/24 15:25 10/31/24 15:25 <Laina Baltazar PA-C - Last Filed: 10/31/24 15:07> Labs: Lab Results 10/31/24 Range/Units 15:25 WBC 9.1 (4.5-10.0) K/mm3 RBC 5.03 (4.6-6.20) M/mm3 Hgb 15.2 (14.0-18.0) g/dL Hct 45.2 (42.0-52.0) % MCV 89.9 (80-100) fl MCH 30.2 (26-34) pg MCHC 33.6 (32-36) g/dl RDW 14.5 (11.5-14.5) % Plt Count 238 (150-375) k/mm3 MPV 10.4 (7.4-10.4) fl Immature Gran % (Auto) 0.2 (0-0.5) % Neut % (Auto) 57.8 (45.5-73.1) % Lymph % (Auto) 31.0 (18.3-44.2) % [place] % (Auto) 7.3 (2.6-8.5) % Eos % (Auto) 3.0 (0-4.4) % Baso % (Auto) 0.7 (0.2-1.2) % Lymph # (Auto) 2.83 (0.9-3.2) K/mm3 [place] # (Auto) 0.7 H (0.1-0.6) K/mm3 Eos # (Auto) 0.3 (0-0.3) K/mm3 Baso # (Auto) 0.1 (0.0-0.1) K/mm3 Abs Immat Gran (auto) 0.02 (0.00-0.031) K/mm3 Absolute Neuts (auto) 5.3 (1.3-6.7) K/mm3 Absolute Nucleated RBC 0.000 (0.0-0.012) K/mm3 Nucleated RBC % 0.0 (0.0-0.2) % Sodium 138 (137-145) mmol/L Potassium 4.0 (3.4-5.0) mmol/L Chloride 103 (98-107) mmol/L Carbon Dioxide 26 (22-30) mmol/L Anion Gap 9 (4-12) mmol/L BUN 11 (9-20) mg/dL Creatinine 1.19 (0.7-1.3) mg/dL Estim Creat Clear Calc 99 ml/min Estimated GFR > 60 (59 - ) Glucose 136 H (65-110) mg/dL Calcium 9.4 (8.4-10.2) mg/dL Magnesium 1.9 (1.6-2.3) mg/dL Total Bilirubin 0.6 (0.2-1.3) mg/dL AST 53 (17-59) U/L ALT 53 H (6-50) U/L Alkaline Phosphatase 86 (38-126) U/L Total Protein 7.6 (6.3-8.2) g/dL Albumin 4.3 (3.5-5.1) g/dL <Laina Baltazar PA-C - Last Filed: 10/31/24 15:07> Lab Results 10/31/24 Range/Units 15:25 WBC 9.1 (4.5-10.0) K/mm3 RBC 5.03 (4.6-6.20) M/mm3 Hgb 15.2 (14.0-18.0) g/dL Hct 45.2 (42.0-52.0) % MCV 89.9 (80-100) fl MCH 30.2 (26-34) pg MCHC 33.6 (32-36) g/dl RDW 14.5 (11.5-14.5) % Plt Count 238 (150-375) k/mm3 MPV 10.4 (7.4-10.4) fl Immature Gran % (Auto) 0.2 (0-0.5) % Neut % (Auto) 57.8 (45.5-73.1) % Lymph % (Auto) 31.0 (18.3-44.2) % [place] % (Auto) 7.3 (2.6-8.5) % Eos % (Auto) 3.0 (0-4.4) % Baso % (Auto) 0.7 (0.2-1.2) % Lymph # (Auto) 2.83 (0.9-3.2) K/mm3 [place] # (Auto) 0.7 H (0.1-0.6) K/mm3 Eos # (Auto) 0.3 (0-0.3) K/mm3 Baso # (Auto) 0.1 (0.0-0.1) K/mm3 Abs Immat Gran (auto) 0.02 (0.00-0.031) K/mm3 Absolute Neuts (auto) 5.3 (1.3-6.7) K/mm3 Absolute Nucleated RBC 0.000 (0.0-0.012) K/mm3 Nucleated RBC % 0.0 (0.0-0.2) % Sodium 138 (137-145) mmol/L Potassium 4.0 (3.4-5.0) mmol/L Chloride 103 (98-107) mmol/L Carbon Dioxide 26 (22-30) mmol/L Anion Gap 9 (4-12) mmol/L BUN 11 (9-20) mg/dL Creatinine 1.19 (0.7-1.3) mg/dL Estim Creat Clear Calc 99 ml/min Estimated GFR > 60 (59 - ) Glucose 136 H (65-110) mg/dL Calcium 9.4 (8.4-10.2) mg/dL Magnesium 1.9 (1.6-2.3) mg/dL Total Bilirubin 0.6 (0.2-1.3) mg/dL AST 53 (17-59) U/L ALT 53 H (6-50) U/L Alkaline Phosphatase 86 (38-126) U/L Total Protein 7.6 (6.3-8.2) g/dL Albumin 4.3 (3.5-5.1) g/dL <Javi Estrella MD - Last Filed: 10/31/24 17:06> Imaging Data Radiologist's impression: ITS Impressions Head CT 10/31/24 15:27 IMPRESSION: 1. Normal brain. No acute intracranial process. <Javi Estrella MD - Last Filed: 10/31/24 17:06> Discharge Plan Discharge Clinical Impression: Headache <Laina Baltazar PA-C - Last Filed: 10/31/24 15:07> Patient Disposition: Home <ARSALAN Reina Last Filed: 10/31/24 15:07> Condition: Stable <ARSALAN Reina Filed: 10/31/24 15:07> Instructions: General Headache (ED) <ARSALAN Reina Filed: 10/31/24 15:07> Additional Instructions: Try to stay well hydrated at home. Please return to the emergency department if you develop worsening of your headache or a new headache which is severe, associated with vision changes, associated with neck stiffness or fever, or if it is different from any other headache that you have had before. Return to the emergency department if you develop numbness, weakness or tingling or problems with coordination, or if you develop severe nausea and vomiting and are unable to keep down fluids at home. <ARSALAN Reina Last Filed: 10/31/24 15:07> Patient Language: Citizen Of [place] <ARSALAN Reina Filed: 10/31/24 15:07> Prescriptions: No Action atorvastatin 20 mg tablet 20 mg PO DAILY allopurinol 100 mg tablet 100 mg PO BID amlodipine 10 mg tablet 10 mg PO DAILY losartan 100 mg tablet 100 mg PO DAILY atenolol 50 mg Tablet 50 mg PO DAILY 30 Days Qty: 30 0RF <ARSALAN Reina Filed: 10/31/24 15:07> Follow-up/Referrals: Reed,MD Renan [Primary Care Provider] - 1 Week <ARSALAN Reina Filed: 10/31/24 15:07>
[2024-10-31] MEDS: ACETAMINOPHEN 500 MG TABLET 1000 MG PO (15:22)
[2024-10-31 15:32] LABS: Hematocrit 45.2 % (42.0-52.0); Hemoglobin 15.2 g/dL (14.0-18.0); Immature Granulocyte Percent A 0.2 % (0-0.5); Lymphocytes Absolute Auto 2.83 K/mm3 (0.9-3.2); Mean Corpuscular HGB Conc 33.6 g/dl (32-36); Mean Corpuscular Hemoglobin 30.2 pg (26-34); Mean Corpuscular Volume 89.9 fl (80-100); Nucleated Red Blood Cells Absolute Auto 0.000 K/mm3 (0.0-0.012); Nucleated Red Blood Cells Perc 0.0 % (0.0-0.2); Platelet Count Result 238 k/mm3 (150-375); Red Blood Count 5.03 M/mm3 (4.6-6.20); White Blood Count 9.1 K/mm3 (4.5-10.0)
[2024-10-31 15:56] LABS: Alanine Aminotransferase 53 U/L (6-50); Albumin Level 4.3 g/dL (3.5-5.1); Alkaline Phosphatase 86 U/L (38-126); Anion Gap 9 mmol/L (4-12); Aspartate Amino Transferase 53 U/L (17-59); Bilirubin,Total 0.6 mg/dL (0.2-1.3); Blood Urea Nitrogen 11 mg/dL (9-20); Calcium 9.4 mg/dL (8.4-10.2); Carbon Dioxide 26 mmol/L (22-30); Chloride 103 mmol/L (98-107); Estimated CRCL calculation 99 ml/min; Estimated Glomerular Filt Rate > 60; Glucose 136 mg/dL (65-110); Magnesium 1.9 mg/dL (1.6-2.3); Potassium 4.0 mmol/L (3.4-5.0); Sodium 138 mmol/L (137-145); Total Protein 7.6 g/dL (6.3-8.2)
[2024-10-31 16:00] VITALS: BP 132/77; PULSE 66; RESP 12; RESP 18; TEMP 36.5; O2SAT 100; O2SAT 99
--- OUTSIDE RECORDS SUMMARY | 2024-10-31 16:29 | XMS_ITS | Clinical Summary ---
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
--- OUTSIDE RECORDS SUMMARY | 2024-10-31 16:29 | XMS_ITS | Continuity of Care Document ---
Author Organization [facility] Address [address] [place] [address] Phone Care Team Providers Care Bioinformatics Developer Name Role Phone Amezquita OD, Kvng Unavailable Unavailable Advance Directives Directive Yes / No Effective Date File Name No Information Encounters Encounter Description Practice Location Reason(s) For Visit Diagnoses Date Provider Providers Copied on Encounter [facility], [address], [place], [place], [id number], [place] tel:[phone] [facility] [place] No Information [id number] Amezquita OD Kvng. [address] , [address], [place], [address], [place]. tel:[phone] Family History Family Member Type Diagnosis Age At Onset No Information Payers Payer name Insurance type Covered democrat ID Authoriza tion(s) No Information Social History [...]
[2024-10-31 18:00] VITALS: BP 136/87; PULSE 95; RESP 14; TEMP 36.5; O2SAT 100
== END 2024-10-31 18:05 | disposition home or self-care (01) ==
PROVIDERS: Physician Assistant; Emergency Provider Emergency Medicine; PCP Family Medicine
DX: R51.9 Headache, unspecified (principal); I10 Essential (primary) hypertension; K21.9 Gastro-esophageal reflux disease without esophagitis; M10.9 Gout, unspecified; Z79.899 Other long term (current) drug therapy
CPT/HCPCS: 36415; 70450; 80053; 83735; 85025; 99284; A9270

== ENCOUNTER 2025-03-16 01:17 | Emergency (ER) | payer BC, SELFPAY ==
[2025-03-16 01:23] VITALS: BP 186/101; PULSE 94; RESP 19; TEMP 36.4; O2SAT 99
--- NOTE | 2025-03-16 04:28 | PC.NURSE ---
This RN requested pain medication for patients pain, no new orders.
--- NOTE | 2025-03-16 05:16 | PC.NURSE ---
pt presents to ED c/o 11/03 sharp R groin pain worsens when weight is put on it. Pt denies any trauma to hip/groin/leg.
--- NOTE | 2025-03-16 07:34 | PC.NURSE ---
Pt exited ED w/ female, agitated, yelling he didnt recieve treatment and hes been here for hours. This RN attempted to calm patient and discuss ED provider signed up to see him and the wait should not be much longer. The pt continued to ambulate out in NAD declining to be seen.
--- OUTSIDE RECORDS SUMMARY | 2025-03-16 07:43 | XMS_ITS | Continuity of Care Document ---
Author Organization [place] - [facility], [facility] Pulmonology [place] Address [facility] [address] Care Team Providers Care Trimmer Loader Name Role Phone STORMY RENAN Primary Care Provider Assessment Encounter Date Assessment Date Assessment LastModified by Organization Details LastModified Time 02/26/2025 02/26/2025 Assessment: Severe OSAHS, AHI = 35 Plan: The following were reviewed and explained to the patient: [facility] home sleep study 03/12/24 AHI = 35, supine AHI = 36 [facility] titration sleep study 11/18/24 sleep onset = 20 minutes, REM onset = 68.5 minutes, [employer] small Viraj nasal mask 10-20 cmH2O, PLMI = 0.0 PAP compliance downloaded and interpreted x 20 minutes. Data reviewed and explained to the patient. Average apnea/hypopnea index (AHI) is 0.3. Patient used PAP > 4 hours 0% of the time. PAP is set at 10-20 cmH2O. PAP will be reset at 9-12 cmH2O. Oxygen supplementation: none Keep ramp off. Keep EPR off. Keep humidifier level at automatic mode. Keep tube temperature at automatic mode. Patient is benefiting from PAP therapy. Encouraged patient to maintain PAP use more than 70% of the time. Statement of PAP use and benefits will be sent to the home care store. Change to [employer] small Viraj nasal mask. Educated the patient on problems and solutions associated with positive airway pressure (PAP) use. Difficulty tolerating pressure, mask leaks, intolerance of interface, nasal congestion, claustrophobic response, dry mouth, and unintentional mask removal during sleep were covered. Patient's mask leaks air. We will ensure the mask is situated properly. Patient can wear protective eye covering during sleep, and the mask can be resized. Provided the patient with a list of local home care stores where positive airway pressure (PAP) units, accoutrement, and services are available. Home care store selection is based on patient's insurance carrier. Patient will setup an appointment with [facility] for supplies and pressure adjustments. A major predictor of success with use of PAP is follow-up with both the respiratory supplier and the treating physician. The download results can show the treating physician information about adherence to treatment, residual AHI while on treatment and presence of large mask leakage. This information is especially helpful if the patient has residual sleepiness despite treatment. General information on sleep disordered breathing, evaluation of sleep disordered breathing, treatment with PAP therapy, and living with PAP therapy were covered. We discussed with the patient the impact of weight on: Sleep disordered breathing Hypertension Hyperlipidemia LEA Hepatomegaly Hepatic steatosis CKD Hyperuricemia We discussed with the patient the benefit of PAP therapy on: Sleep disordered breathing Hypertension LEA CKD ED Mandibular Advancement Device (MAD) or Mandibular Advancement Split (MAS) therapy discussed per patient request. Patient's records will be sent to the dental specialist of choice. Factors that may negatively impact MAD/MAS candidacy were discussed as follows: history of cancer in head/neck/mouth, history of radiation treatment, gum disease, use of dentures, presence of eight or less teeth in upper and lower jaw, decay or broken teeth/fillings, jaw joint pain or clicking/popping , ear problems such as congestion/tinni tus/pain/vertigo , neck/back/facial pain, frequent headaches, teeth grinding or teeth clenching, etc. Educated the patient on sleep hygiene measures. [...] to PCP for further management. Follow-up: 1 month after mandibular advancement device use [facility]5 Not available 02/26/2025 15:20:30 Plan of Treatment Reminders Order Date Submit Date Provider Last Modified By Organization Details Last Modified Time Details Appointments None recorded. Lab None recorded. Referral dentist referral - Patient would like to try mandibular advancement device 2024 025 [email or web address] Not available 15:20:32 Procedures None recorded. Surgeries None recorded. Imaging None recorded. Medication Orders None recorded. Patient TargetsNo targets recorded. Patient InstructionsNo instructions recorded. Reason for Referral Dentist Referral for Obstruc tive sleep apnea syndrome Patient would like to try mandibular advancement device Referring Physician: Dayday Stanford, Pulmonary Disease, Encounter Date: 02/26/2025 Problems Name Problem SNOMED Code Status Onset Date Resolution Date Notes Provider Name and Address Organization Details Recorded Time Gastroesophag eal reflux disease without esophagitis 425473220 Active 2020 Not Available [facility] 3 10:46:01 Hypertensive disorder 08604577 Active 2020 Not Available [facility] 3 10:46:01 Obesity 965879466 Active 2020 Not Available [facility] 3 10:46:02 Hyperlipidemi a 81024795 Active 2020 Not Available [facility] 3 10:46:02 Gout 60117952 Active 2020 Not Available [facility] 3 10:46:02 Vitamin D deficiency 72503970 Active 2020 Not Available [facility] 3 10:46:01 Chronic kidney disease stage 3 934025082 Active 2020 Not Available [facility] 3 10:46:02 Unexplained infertility 492543703 Active 2021 Not Available [facility] 3 10:46:01 Steatotic liver disease 248865652 Active 2021 Not Available [facility] 3 10:46:01 Erectile dysfunction 455546389 Active 2023 Renan Mcbride MD [address], [employer], [place], [address] , [facility] 4 15:41:38 Obstructive sleep apnea syndrome 45204565 Active 2023 Renan Mcbride MD [address], [address], [place], [address] , [facility] 5 16:23:56 Notes:Medical History: Early REM onset Obesity with severe OSAHS, AHI = 35, 03/12/24, on autoCPAP c/o [facility] Hypertension EF 60% Hyperlipidemia LEA Hepatomegaly Hepatic steatosis Stage 3 CKD ED Infertility Vit D deficiency Hyperuricemia with gout Procedure History: None 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 Medical Equipment None Reported. [...] TABLET BY MOUTH EVERY DAY AT BEDTIME 2024 active Not Available Not Available Not Avai lable sildenafil 50 mg tablet TAKE 1 TABLET BY MOUTH NEEDED. MAX OF 1 PER DAY. active Not Available Not Available No t Available ofloxacin 0.3 % eye drops INSTILL 2 TO 3 DROPS IN RIGHT EYE TWICE DAILY FOR 7 TO 10 DAYS 11/20 completed Not Available Not Available Not Available atenolol 100 mg tablet 01/28 completed Not [...] route in the morning for 90 days. 11/27 completed Not Available Not Available Not Available amlodipine 5 mg tablet TAKE 1 TABLET BY MOUTH EVERY DAY 04/10 completed Not Available Not Available Not Available allopurinol 100 mg tablet TAKE 1 TABLET BY MOUTH TWICE DAILY DIRECTED active Not Available Not Available No t Available tramadol 50 mg tablet TAKE 1 TABLET [...] Available Not Available amlodipine 10 mg tablet TAKE 1 TABLET BY MOUTH EVERY DAY IN THE EVENING active Not Available Not Available No t Available doxycycline monohydrate 100 mg capsule TAKE 1 CAPSULE BY MOUTH TWICE DAILY 11/20 completed Not Available Not Available Not Available metoprolol tartrate 50 mg tablet Take 1 tablet twice a day by oral route as directed for 90 days. 01/28 completed Not Available Not Available Not Available indomethaci n 50 mg capsule TAKE 1 CAPSULE BY MOUTH THREE TIMES DAILY WITH FOOD OR MILK FOR 10 DAYS active Not Available Not Available No t Available hydrochloro thiazide 12.5 mg capsule Take [...] Available Not Available losartan 100 mg tablet TAKE 1 [...] Not Available Not Available Vitals Date Recorded Heart rate Respiratory rate Provider N stefania and Address Organization Details Last Updated DateTime 02/26/2025 91 /min 15 /min Dayday Stanford MD [address], [facility] [address], [place], [address], [facility] 02/26/2025 15:17:28 Date Recorded Body height Body mass index (BMI) Body weight Body temperature Heart rate Oxygen saturation Systolic And Diastolic Provider Name and Address Organization Details Last Updated DateTime 5 170.18 cm 47.5 kg/m2 902806. 49 g 98 [degF] 91 /min 97 % 132/84 mm[Hg] Annie Powell MA [place] [employer] [facility] 12/03/202 5 14:51:04 Social History Question Answer Notes LastModified by Organizat ion Details LastModified Time Tobacco Smoking Status Never Smoker Not Available [facility] 05/25/2022 10:41:59 Do You Have An Advance Directive? No [id number].[id number] Information not available 05/25/2022 Do You Wear A Helmet When Biking? No MIGRATION.98248 43493 Information not available 05/25/2022 What Is Your Level Of Caffeine Consumption? Occasional Energy Drink Maybe 2 A Week Once Or Twice A Week (24 Oz) Pepradha [email or web address] Information not available 09/03/2024 In The 14 Days Before Symptom Onset, Have You Had Close Contact With A Laboratory-confi rmed COVID-19 While That Case Was Ill? No MIGRATION.22373 [id number] Information not available 05/25/2022 In The 14 Days Before Symptom Onset, Have You Had Close Contact With A Person Who Is Under Investigation For COVID-19 While That Person Was Ill? No MIGRATION.32542 96260 Information not available 05/25/2022 What Type Of Diet Are You Following? REGULAR MIGRATION.87750 87527 Information not available 05/25/2022 What Is The Highest Grade Or Level Of School You Have Completed Or The Highest Degree You Have Received? [id number] MIGRATION.43396 75570 Information not available 05/25/2022 Do You Have An Electrostatic Air Filter? No Information not available 03/18/2024 Have There Been Any Changes To Your Family Or Social Situation? No MIGRATION.48363 58847 Information not available 05/25/2022 Do You Have A Humidifier? No Information not available 03/18/2024 Do You Use Insect Repellent Routinely? No MIGRATION.59055 48297 Information not available 05/25/2022 Where Do You Live? [place] MIGRATION.43910 27902 Information not available 05/25/2022 Do You Have A Medical Power Of Auto Servicer? No MIGRATION.81343 07665 Information not available 05/25/2022 Do You Have Moisture Problems In Your Home? No Information not available 03/18/2024 What Was The Date Of Your Most Recent Tobacco Screening? 02/26/2025 Information not available 02/26/2025 Have You Ever Been Counseled For Unhealthy Alcohol Use? No MIGRATION.74957 95860 Information not available 05/25/2022 Do You Have Any Pets? No MIGRATION.32488 62028 Information not available 05/25/2022 What Is Your Relationship Status? Single MIGRATION.96791 97254 Information not available 05/25/2022 Do You Use Your Seat Belt Or Car Seat Routinely? No MIGRATION.18957 68585 Information not available 05/25/2022 Do You Have Smoke And Carbon Monoxide Detectors In Your Home? Yes MIGRATION.47027 26646 Information not available 05/25/2022 Are You Passively Exposed To Smoke? Yes MIGRATION.30814 84946 Information not available 05/25/2022 Are There Any Smokers In Your House? No MIGRATION.24848 96500 Information not available 05/25/2022 Do You Participate In Social Media? Yes MIGRATION.64750 39027 Information not available 05/25/2022 Do You Use Sunscreen Routinely? No MIGRATION.73080 74719 Information not available 05/25/2022 Have You Recently Traveled Abroad? No MIGRATION.77880 43321 Information not available 05/25/2022 Are You Currently In School? No MIGRATION.92662 34804 Information not available 05/25/2022 Do You Have Any Dietary Restrictions? No MIGRATION.74068 66440 Information not available 05/25/2022 Sex: Male Functional Status Question Answer Note LastModified by Organizat ion Details LastModified Time Do you or have you ever used any other forms of tobacco or nicotine? No MIGRATION.[id number] 035 Information not available 05/25/2022 What is your level of alcohol consumption? Occasional MIGRATION.5551600 035 Information not available 05/25/2022 Are you currently employed? Yes Information not available 03/18/2024 Have you been exposed to chemicals or toxins? 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 None MIGRATION.[id number] 035 Information not available 05/25/2022 Mental Status Question Answer Note LastModified by Organizat ion Details LastModified Time Do you feel stressed (tense, restless, nervous, or anxious, or unable to sleep at night)? [id number] [id number].[id number] 5 Information not available 05/25/2022 Family History Relationship Description Onset Age of this Age Resolved Age Notes LastModified by Organization Details LastModified Time Mother Hypertensive disorder [id number] Not available 05/25/2022 10:42:53 Father Diabetes mellitus [id number].[id number] Not available 05/25/2022 10:42:53 Maternal Grandfather Myocardial infarction [email or web address] Not available 03/18 11:43:40 Maternal Grandmother Malignant neoplasm of breast [email or web address] Not available 2023 11:43:59 Maternal Uncle Malignant neoplasm of breast [email or web address] Not available 2023 11:44:19 Paternal Uncle Malignant neoplasm of prostate [email or web address] Not available 2023 11:45:04 Medical History No medical history recorded. Past Encounters Encounter ID Performer Location Encounter Start Date Encounter Closed Date Diagnosis/Indication Diagnosis SNOMED-CT Code Diagnosis ICD10 Code Diagnosis IMO Codes Diagnosis Note [id number] Dayday Stanford MD [facility] [address] [address] 02/26/2025 14:33:31 02/28/2025 16:38:02 Obstructive sleep apnea syndrome 74477301 G47.33 111638 Health Concerns Section Related Observation LastModified by Organization Detai ls LastModified Time None Recorded Concern Status LastModified by Organization Details LastModified Time None Recorded Payers Encounter Date Sequence Insurance Name Policy Number Policy Hutchison Covered Member ID Hutchison Member ID Guarantor Name 02/26/2025 1 [facility] ON OR AFTER 10/25/2024 (MEDICAID REPLACEMENT - HMO) [id number] Amari Finnegan [id number] Amari Finnegan Notes Date Note Type Note Provider Name and Address Organization Details Recorded Time 02/26/2025 text/html Primary care/Referring provider: Renan Mcbride MD CC: I cannot sleep with the full face CPAP mask on my face. During the [facility] home sleep study on 03/12/24, AHI = 35, supine AHI = 36. During the [facility] titration sleep study on 11/18/24, sleep onset = 20 minutes, REM onset = 68.5 minutes, PLMI = 0.0. The patient uses a ResMed AirSense 11 autoset unit with heated humidification. The patient does not need the ramp to start low and go up slowly on the pressure. There is no xerostomia in a.m. There is no hose/mask condensation with water. The patient wears a [employer] extra small Viraj full face mask without chin strap. There is no claustrophobia, no nostril/nose bridge irritation, no facial rash, no facial numbness, no nosebleeding. The patient feels more refreshed upon waking and daytime alertness is improved. Energy levels are sustained until noon. At home, the patient sleeps from 11 pm to 6 am and wakes up without an alarm. Snoring: moderate, since .Snorting: noChoking: yesCoughing: yesGasping: yesGagging: yesSighing: noWitnessed apnea: yesTwitching or jerking of leg(s), arm(s), body, head: noTeeth grinding: noTeeth clenching: noSleeptalking: noSleepwalking: noSleep crying: noBedwetting: noTongue/lip/gum/cheek biting: noSleeping with open mouth: yesSleep paralysis: noHypnagogic hallucinations: noHypnopompic hallucinations: noVivid dreams: noDifficulty with sleep onset: noDifficulty with sleep maintenance: yesSleep interruptions: coughing, gaspingPatient wakes up with: fatigue, xerostomia, headachesDaytime cataplexy: noMorning hypersomnolence: yesAfternoon hypersomnolence: yesCaffeine sources in diet: tea 1/3 cup per day, soda 1 bottle per week, energy drink 1/2 can of Red Bull per day Associated medical and psychiatric conditions:Congestive heart failure: noCoronary artery disease: noMyocardial infarction: noHypertension: yesStroke: noBronchial asthma: noChronic obstructive pulmonary disease: noDepression: noBipolar disorder: noAnxiety: noPanic disorder: noPosttraumatic stress disorder: noAttention deficit and hyperactivity disorder: noObsessive Compulsive disorder: noSchizophrenia: noSchizoaffective disorder: noPersonality disorder: noChronic analgesic use: noChronic sedative/hypnotic use: no EPWORTH SLEEPINESS SCALE (ESS) CHANCE OF DOZING SCORE0 = would never doze1 = slight chance of dozing2 = moderate chance of dozing3 = high chance of dozing SITUATION AND CHANCE OF DOZINGSitting and reading - 1Watching television - 0Sitting inactive in a public place (e.g. a theater or meeting) - 1As a passenger in a car for an hour without a break - 1Lying down to rest in the afternoon when circumstances permit - 2Sitting and talking to someone - 0Sitting quietly after lunch without alcohol - 1In a car, while stopped for a few minutes in the traffic - 0TOTAL SCORE 6Subjectively, patient has a slight chance of dozing. Dayday Stanford MD [address] [place] [address], [address], [place] - [facility] 02/26/2025 15:27:53
--- OUTSIDE RECORDS SUMMARY | 2025-03-16 07:43 | XMS_ITS | Clinical Summary ---
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
--- OUTSIDE RECORDS SUMMARY | 2025-03-16 07:44 | XMS_ITS | Data Portability ---
Author Organization [facility] OFFICE Address [address] [place] [address] Care Team Providers Care Plate Straightener Name Role Phone LINDA BURROWS Primary Care Provider Assessment No assessment recorded. Plan of Treatment Reminders Order Date Submit Date Provider Last Modified By Organization Details Last Modified Time Details Appointments None recorded. Lab None recorded. Referral None recorded. Procedures None recorded. Surgeries None recorded. Imaging electrocard iogram [address] (Imaging), [address] [place], [address], 13:01:00 Medication Orders losartan 100 mg tablet 2021 [facility] #[id number], [address] [place], [place], [id number], 15:48:48 amlodipine 10 mg tablet 2021 [facility] #[id number], [address], [place], [id number], 15:48:46 aspirin 81 mg tablet,jarret yed release 2021 [place] [id number], [address], [place], [id number], 15:48:50 carvedilol 6.25 mg tablet 2021 022 [facility] #[id number], [address] [place], [place], [id number], 15:48:47 Patient TargetsNo targets recorded. Patient Instructions Encounter Date Encounter Id Patient Instructions Last Modified By Organization Details Last Modified Time 10/14/2021 [id number] high cholesterol : care instructions [email or web address] Not available 10/14/2021 15:48:36 high blood pressure: care instructions [email or web address] Not available 10/14/2021 15:48:36 learning about high blood pressure nurbanski Not available 10/14/2021 15:48:36 Reason for Referral None Reported. Results Created Date Observation Date Name Description Value Unit Range Abnormal Flag Note LastModifiedBy Organization Detail LastModifiedTime 10/16/1910/14/2021 elect emil barkergr am No observ ation record ed. [email or web address] Not Available 2021 09:05:22 Result Notes None recorded. Problems Name Problem SNOMED Code Status Onset Date Resolution Date Notes Provider Name and Address Organization Details Recorded Time Chest pain 31496170 Active 2021 Estrada M[place] null, [place] - [facility] 2 17:15:53 Vitamin D deficiency 84249172 Active 2021 Estrada [place], [place] - [facility] 2 17:16:40 Hyperlipidemia 72276356 Active 2021 Estrada [place], [place] - [facility] 2 17:18:11 Gout 65088459 Active 2021 Estrada [place], [place] - [facility] 2 17:16:56 Obesity 839508137 Active 2021 Estrada [place], [place] - [facility] 2 17:17:04 Benign essential hypertension 9048295 Active 2021 Estrada [place], [place] - [facility] 2 17:18:06 Gastroesophage al reflux disease without esophagitis 199100329 Active 2021 Estrada Mesto [place], [place] - [facility] 2 17:17:30 Steatotic liver disease 929364797 Active 2021 Natalie Vidal null, [place] - [facility] 2 17:17:47 Chronic kidney disease stage 3 675028088 Active 2021 Natalie V[place] - [facility] 2 17:18:44 Anterior chest wall pain 473083762 Active 2021 Natalie V[place] - [facility] 2 17:19:03 Chest discomfort 614242471 Active 2021 Mario Cespedes null, [place] - [facility] 2 15:45:57 Problem Notes None recorded. Medical Equipment None [...] mass index (BMI) Body height Oxygen saturation Heart rate Systolic And Diastolic Provider Name and Address Organization Details Last Updated DateTime 2 965492. 23 g 44.5 kg/m2 170.18 cm 98 % 89 /min 128/72 mm[Hg] CARLOS BOLAND [facility] 2 15:18:52 Social History Question Answer Notes LastModified by [employer] Details LastModified Time Tobacco Smoking Status Never Smoker Natalie hernandez [facility] 10/12/2021 17:21:38 What Is Your Level Of Caffeine Consumption? Occasional Information not available 10/12/2021 What Type Of Diet Are You Following? REGULAR Information not available 10/12/2021 What Is Your Relationship Status? Single Information not available 10/12/2021 Sex: Male Functional Status Question Answer Note LastModified by [employer] Details LastModified Time Do you use any illicit or recreational drugs? No Information not available 10/12/2021 What is your level of alcohol consumption? Occasional Information not available 10/12/2021 What is your exercise level? None Information [...] ICD10 Code Diagnosis IMO Codes Diagnosis Note [id number] Mario Cespedes MD [place] OFFICE [address] [place] [address] 10/14/2021 14:56:28 10/14/2021 15:42:35 Chest discomfort 193384233 R07.89 Patient presents with chest pain typical of angina. Given the history, exam findings and high cardiac risk factors, I feel additional investigat ion is warranted. I have made arrangemen ts in the near future for an exercise stress echocardio gram to evaluate for any ischemia, structural heart disease, or exercise induced arrythmia. The procedure was discussed with the patient, and risks, benefits, and alternativ e options were explained. Appropriat e labwork has not been performed recently, therefore I have made arrangemen ts for further testing. I have asked the patient to curtail exercise and activities until our investigat ion is complete. I have made the following adjustment s to the present medical regimen. Benign ess ential hypertension 4375852 I10 Patient's blood pressure is relatively well-contr olled on present medical therapy. Patient is tolerating , without difficulty , the current medication s. I have made the following changes to the current regimen. change atenolol for carvedilol Patient is advised to maintain a blood pressure diary. Cont low Na diet. Hyperlipidemia 07485507 E78.5 [facility] Health Concerns Section Related Observation LastModified by Organization Detai ls LastModified Time None Recorded Concern Status LastModified by Organization Details LastModified Time None Recorded Advance Directives Directive None Recorded Payers Insurance Date Sequence Insurance Name Policy Number Policy Hutchison Covered Member ID Hutchison Member ID Guarantor Name 10/11/2021 1 [facility] PRIOR TO 10/25/2024 (MEDICAID REPLACEMENT - HMO) [id number] Amari Roberts [id number] Amari Roberts Notes Date Note Type Note Provider Name and Address Organization Details Recorded Time 10/14/2021 text/html 10/14/21CC : chest discomfort, HTN HPI: Amari ROBERTS is a 36 years-old Male with h/o Hypertension and Hyperlipidemia who presents for initial cardiovascular evaluation. pt had CP one month ago in [facility]. BP was high HTN sometimes goes up [...]
--- OUTSIDE RECORDS SUMMARY | 2025-03-16 07:44 | XMS_ITS | Data Portability ---
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 Cont f/u with Cardio at [facility] as per schedule. Offered to refer to Nephro; but pt declined. HM: Flu - Pt declined. Tdap, Gardasil - At HD. F/u in 3-4 weeks. Annual labs in 06/18. [email or web address] Not available 01/29/2024 16:26:29 03/18/2024 03/18/2024 Assessment: Hypertension Severe OSAHS, AHI = 35 PLMD Hypoventilation Plan: The following were reviewed and explained to the patient: primary care/referral note [facility] home sleep study 03/12/24 AHI = 35, [...] Follow-up: 1 week after titration sleep study Not available 03/18/2024 11:48:34 09/03/2024 09/03/2024 39 yo M with - WELL ADULT VISIT - HTN - CKD III, resolved - HLD - GOUT - GERD - FATTY LIVER - CROW - ED - OBESITY III - H/O ATYPICAL CHEST PAIN Sleep study: 03/12/24. CXR: 01/31/23. Annual labs: 06/22/22. CXR: 02/15/22. US kidney: 09/03/21. Stress echo: 08/20/21. Annual labs: 10/01/20. D/w pt in detail about his findings, recent labs & imagines and further plan of care. Will do routine labs. Will refer to Pulmo. Advised pt to f/u with his Cardio about his all HTN meds. Medication compliance & regular f/u explained to pt. All meds verified with pt. Meds as directed. Diet and exercise explained in detail. Educated about different options for him. BP diary education given and call us if any concerns. Educated pt about alarming symptoms to monitor at home and call us back Or get checked in ED. F/u with sleep study as per schedule. Cont f/u with Cardio at [facility] as per schedule. Offered to refer to Nephro; but pt declined. HM: Flu - Pt declined. Tdap, Gardasil - At HD. F/u in 2-4 weeks. Annual labs in 09/19. Not available 09/03/2024 17:09:37 11/27/2024 11/27/2024 Assessment: Hypertension Severe OSAHS, AHI = 35 Plan: The following were reviewed and explained to the patient: [facility] home sleep study 03/12/24 AHI = 35, supine AHI = 36 [facility] titration sleep study 11/18/24 sleep onset = 20 minutes, REM onset = 68.5 minutes, [employer]key[employer] small Viraj nasal mask 10-20 cmH2O, PLMI = 0.0 Educated the patient on problems and solutions associated with positive airway pressure (PAP) use. Difficulty tolerating pressure, mask leaks, intolerance of interface, nasal congestion, claustrophobic response, dry mouth, and unintentional mask removal during sleep were covered. Patient's mask leaks air. We will ensure the mask is situated properly. Patient can wear protective eye covering during sleep, and the mask can be resized. [employer]Med Air Sense 11 auto set unit with heated humidifier, supplies and [employer] small Viraj nasal mask was applied at 10-20 cmH2O ordered. Further titration will be based on clinical response. Provided the patient with a list of local home care stores where positive airway pressure (PAP) units, accoutrement, and services are available. Home care store selection is based on patient's insurance carrier. Patient will setup an appointment with [facility] for supplies and pressure adjustments. A major predictor of success with use of PAP is follow-up with both the respiratory supplier and the treating physician. The respiratory supplier optimally will follow-up within two weeks after starting use while the treating physician optimally will follow-up within 90 days after starting therapy to assess adherence and effectiveness of treatment. The download results can show the treating [...] records to PCP for further management. Follow-up: 3 months, February 2025 [facility] Not available 11/27/2024 12:42:49 02/26/2025 02/26/2025 Assessment: Severe OSAHS, AHI = 35 Plan: The following were reviewed and explained to the patient: [facility] home sleep study 03/12/24 AHI = 35, supine AHI = 36 [facility] titration sleep study 11/18/24 sleep onset = [...] 1 month after mandibular advancement device use Not available 02/26/2025 15:20:30 Plan of Treatment Reminders Order Date Submit Date Provider Last Modified By Organization Details Last Modified Time Details Appointments None recorded. Lab uric acid, serum or plasma [address] (Lab), [address] [place], [address], 11:57:14 semen analysis [address] (Lab), [address] [place], [address], 11:57:14 CMP, serum or plasma [address] (Lab), [address] [place], [address], 5 11:57:13 CBC w/ auto diff [address] (Lab), [address] [place], [address], 5 11:57:13 lipid panel, blood [address] (Lab), [address] [place], [address], 5 11:57:13 TSH, serum, reflex free T4 [address] (Lab), [address] [place], [address], 5 11:57:13 urinalysis complete, reflex culture [address] (Lab), [address] [place], [address], 5 11:57:14 glycohemogl obin, total, blood [address] (Lab), [address] [place], [address], 5 11:57:14 vitamin D, 25-hydroxy, total, serum [address] (Lab), [address] [place], [address], 5 11:57:14 uric acid, serum or plasma [address] (Lab), [address] [place], [address], 5 14:06:31 CMP, serum or plasma 2023 024 4 [facility] (Lab), [address] [place], [address], 5 14:06:30 CBC w/ auto diff 2023 024 4 [facility] (Lab), [address] [place], [address], 5 14:06:30 lipid panel, blood 2023 024 [email or web address] [facility] (Lab), [address] [place], [address], 5 14:06:31 TSH, serum, reflex free T4 2023 024 [email or web address] [id number] 4 [facility] (Lab), [address] [place], [address], 5 14:06:31 urinalysis complete, reflex culture 2023 024 [email or web address] [id number] 4 [facility] (Lab), [address] [place], [address], 5 14:06:31 glycohemogl obin, total, blood [address] (Lab), [address] [place], [address], 5 14:06:31 vitamin D, 25-hydroxy, total, serum [address] (Lab), [address] [place], [address], 5 14:06:31 Referral dentist referral - Patient would like to try mandibular advancement device 2024 025 [email or web address] Not available 15:20:[address] referral - Please call patient to schedule an appointment . Thank you. 2024 025 [email or web address] Dayday Stanford MD, [address] [place], [address], 5 08:57:01 Procedures None recorded. Surgeries None recorded. Imaging polysomnogr am, titration study - Please call patient to schedule. 2023 024 [email or web address] [facility], [address] [place], [address], 5 08:43:59 Medication Orders allopurinol 100 mg tablet 2024 025 [facility] #73554, [address] [place], [place], [id number], 5 16:50:46 indomethaci n 50 mg capsule [address] [facility]46404, [address] [place], [place], [id number], 5 12:28:47 losartan 100 mg tablet 2024 025 [facility] #83343, [address] [place], [place], [id number], 5 16:50:47 amlodipine 10 mg tablet 2024 025 [facility] #10976, [address] [place], [place], [id number], 5 16:50:48 atenolol 25 mg tablet [address] [facility] #46778, [address] [place], [place], [id number], 5 12:28:04 sildenafil 50 mg tablet 2024 025 [facility] #98587, [address] [place], [place], [id number], 5 16:50:45 atorvastati n 20 mg tablet [address] [facility] #58469, [address] [place], [place], [id number], 5 12:28:28 allopurinol 100 mg tablet 2023 024 [facility] #10258, [address] [place], [place], [id number], 4 15:58:49 indomethaci n 50 mg capsule [address] [facility] #85066, [address] [place], [place], [id number], 5 12:28:15 losartan 100 mg tablet 2023 [facility] #06606, [address] [place], [place], [id number], 4 16:01:59 amlodipine 10 mg tablet 2023 [facility] #60841, [address] [place], [place], [id number], 4 16:01:54 atenolol 25 mg tablet [address] [facility] #77324, [address] [place], [place], [id number], 5 12:28:04 sildenafil 50 mg tablet 2023 [facility] #43637, [address] [place], [place], [id number], 4 15:58:55 atorvastati n 20 mg tablet [address] [facility] #88317, [address] [place], [place], [id number], 5 12:28:10 Patient TargetsNo targets recorded. Patient Instructions Encounter Date Encounter Id Patient Instructions Last Modified By Organization Details Last Modified Time 01/29/2024 [id number] high blood pressure: care instructions Not available 01/29/2024 16:00:20 dash diet: care instructions Not available 01/29/2024 16:00:20 high cholesterol : care instructions [email or web address] Not available 01/29/2024 16:00:20 Starting a Weight-Loss Plan: Care Instructions [email or web address] Not available 01/29/2024 16:00:20 09/03/2024 [id number] high blood pressure: care instructions [email or web address] Not available 09/03/2024 16:48:57 dash diet: care instructions [email or web address] Not available 09/03/2024 16:48:57 high cholesterol : care instructions [email or web address] Not available 09/03/2024 16:48:57 Starting a Weight-Loss Plan: Care Instructions [email or web address] Not available 09/03/2024 16:48:57 Reason for Referral House Mover Referral for O bstructive sleep apnea syndrome Please call patient to schedule an appointment. Thank you. Referring Physician: Renan Mcbride, Family Medicine, Encounter Date: 09/03/2024 Dentist Referral for Obstruc tive sleep apnea syndrome Patient would like to try mandibular advancement device Referring Physician: Dayday Stanford, Pulmonary Disease, Encounter Date: 02/26/2025 Results Created Date Observation Date Name Description Value Unit Range Abnormal Flag Note LastModifiedBy Organization Detail LastModifiedTime 03/15/20 24 03/12/2024 home sleep study No observ ation record ed. [email or web address] [facility] [address] [place], [address], 09/03/2024 16:46:47 03/21/20 24 03/12/2024 home sleep study No observ ation record ed. [facility] [address] [place], [address], 09/03/2024 16:46:47 11/01/19 25 10/31/2024 CT, brain , w/o contr ast No observ ation record ed. [email or web address] [facility] [address], [place], [address], 11/04/2024 10:49:44 08/2911/18/2024 polys omnog jurgen, titra tion study No observ ation record ed. [facility] [address] [facility], [place], [address], 11/22/2024 12:02:31 Result Notes None recorded. Problems Name Problem SNOMED Code Status Onset Date Resolution Date Notes Provider Name and Address Organization Details Recorded Time Gastroesophag eal reflux disease without esophagitis 972045491 Active 2020 Not Available [facility] 3 10:46:01 Hypertensive disorder 60613049 Active 2020 Not Available [facility] 3 10:46:01 Obesity 945733144 Active 2020 Not Available [facility] 3 10:46:02 Hyperlipidemi a 55457210 Active 2020 Not Available [facility] 3 10:46:02 Gout 83310254 Active 2020 Not Available [facility] 3 10:46:02 Vitamin D deficiency 63687865 Active 2020 Not Available [facility] 3 10:46:01 Chronic kidney disease stage 3 076832895 Active 2020 Not Available [facility] 3 10:46:02 Unexplained infertility 180661437 Active 2021 Not Available [facility] 3 10:46:01 Steatotic liver disease 014769049 Active 2021 Not Available [facility] 3 10:46:01 Erectile dysfunction 233424458 Active 2023 Renan Mcbride MD [address] [facility], [place], [address] , [employer] 4 15:41:38 Obstructive sleep apnea syndrome 02943163 Active 2023 Renan Mcbride MD [address] [facility] [address], [place], [address] , [employer] 5 16:23:56 Notes:Medical History: Early REM onset Obesity with severe OSAHS, AHI = 35, 03/12/24, on autoCPAP c/o Provider Plus Hypertension EF 60% Hyperlipidemia LEA Hepatomegaly Hepatic steatosis Stage 3 CKD ED Infertility Vit D deficiency Hyperuricemia with gout Procedure History: None 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 Medical Equipment None [...] (BMI) Body weight Body temperature Oxygen saturation Heart rate Systolic And Diastolic Provider Name and Address Organization Details Last Updated DateTime 5 170.18 cm 46.7 kg/m2 196676. 93 g 97.7 [degF] 96 % 90 /min 150/86 mm[Hg] Debbi Herrera RN [facility] [employer] 5 16:41:22 Date Recorded Heart rate Respiratory rate Systolic And Diastolic Provider Name and Address Organization Details Last Updated DateTime 11/27/2024 85 /min 15 /min 142/98 mm[Hg] Dayday Stanford MD [address], [place], [address], [facility] [employer] 11/27/2024 12:41:32 Date Recorded Body height Body mass index (BMI) Body weight Body temperature Heart rate Oxygen saturation Provider Name and Address Organization Details Last Updated DateTime 5 170.18 cm 47.4 kg/m2 767273. 77 g 98 [degF] 85 /min 98 % Annie Powell MA [facility] [employer] 12:30:38 Date Recorded Systolic And Diastolic Systolic And Diastolic Provider Name and Address Organization Details Last Updated DateTime 01/29/2024 176/110 mm[Hg] 168/104 mm[Hg] Renan Mcbride MD [address], [place], [address], [facility] [employer] 01/29/2024 16:02:42 Date Recorded Body height Body mass index (BMI) Body weight Body temperature Oxygen saturation Heart rate Provider Name and Address Organization Details Last Updated DateTime 4 170.18 cm 46.2 kg/m2 356039. 8 g 97.2 [degF] 96 % 84 /min Debbi Herrera RN [facility] [employer] 15:49:12 Date Recorded Heart rate Respiratory rate Provider N polly and Address Organization Details Last Updated DateTime 02/26/2025 91 /min 15 /min Dayday Stanford MD [address], [place], [address], [facility] [employer] [facility] 02/26/2025 15:17:28 Date Recorded Body height Body mass index (BMI) Body weight Body temperature Heart rate Oxygen saturation Systolic And Diastolic Provider Name and Address Organization Details Last Updated DateTime 5 170.18 cm 47.5 kg/m2 506259. 49 g 98 [degF] 91 /min 97 % 132/84 mm[Hg] Annie Powell MA [facility] [employer] [facility] 5 14:51:04 Date Recorded Heart rate Respiratory rate Provider N polly and Address Organization Details Last Updated DateTime 03/18/2024 74 /min 15 /min Dayday Stanford MD [address] [facility], [facility] [address], [address], [facility] [employer] [facility] 03/18/2024 11:27:43 Date Recorded Body height Body mass index (BMI) Body weight Body temperature Heart rate Oxygen saturation Systolic And Diastolic Provider Name and Address Organization Details Last Updated DateTime 4 170.18 cm 46.4 kg/m2 560514. 34 g 98.2 [degF] 74 /min 98 % 148/94 mm[Hg] Laurence Gruber MA [facility] [employer] [facility] 4 10:57:49 Social History Question Answer Notes LastModified by Organizat ion Details LastModified Time Tobacco Smoking Status Never Smoker Not Available [facility] 05/25/2022 10:41:59 Do You Have An Advance Directive? No MIGRATION.32907 [id number] Information not available 05/25/2022 Do You Wear A Helmet When Biking? No MIGRATION.47852 72046 Information not available 05/25/2022 What Is Your Level Of Caffeine Consumption? [employer] Drink Maybe 2 A Week Once Or Twice A Week (24 Oz) Pepsi [email or web address] Information not available 09/03/2024 In The 14 Days Before Symptom Onset, Have You Had Close Contact With A Laboratory-confi rmed COVID-19 While That Case Was Ill? No MIGRATION.98746 31409 Information not available 05/25/2022 In The 14 Days Before Symptom Onset, Have You Had Close Contact With A Person Who Is Under Investigation For COVID-19 While That Person Was Ill? No MIGRATION.88737 60180 Information not available 05/25/2022 What Type Of Diet Are You Following? REGULAR MIGRATION.59452 86287 Information not available 05/25/2022 What Is The Highest Grade Or Level Of School You Have Completed Or The Highest Degree You Have Received? [id number] MIGRATION.21876 40605 Information not available 05/25/2022 Do You Have An Electrostatic Air Filter? No Information not available 03/18/2024 Have There Been Any Changes To Your Family Or Social Situation? No MIGRATION.46436 38482 Information not available 05/25/2022 Do You Have A Humidifier? No Information not available 03/18/2024 Do You Use Insect Repellent Routinely? No MIGRATION.27614 26366 Information not available 05/25/2022 Where Do You Live? [place] MIGRATION.81175 78561 Information not available 05/25/2022 Do You Have A Medical Power Of Candle Wicker? No MIGRATION.26309 58266 Information not available 05/25/2022 Do You Have Moisture Problems In Your Home? No Information not available 03/18/2024 What Was The Date Of Your Most Recent Tobacco Screening? 02/26/2025 Information not available 02/26/2025 Have You Ever Been Counseled For Unhealthy Alcohol Use? No MIGRATION.44052 32753 Information not available 05/25/2022 Do You Have Any Pets? No MIGRATION.57714 75422 Information not available 05/25/2022 What Is Your Relationship Status? Single MIGRATION.45946 07916 Information not available 05/25/2022 Do You Use Your Seat Belt Or Car Seat Routinely? No MIGRATION.38970 90853 Information not available 05/25/2022 Do You Have Smoke And Carbon Monoxide Detectors In Your Home? Yes MIGRATION.92134 49559 Information not available 05/25/2022 Are You Passively Exposed To Smoke? Yes MIGRATION.51755 54482 Information not available 05/25/2022 Are There Any Smokers In Your House? No MIGRATION.03976 70133 Information not available 05/25/2022 Do You Participate In Social Media? Yes MIGRATION.15534 28398 Information not available 05/25/2022 Do You Use Sunscreen Routinely? No MIGRATION.93927 16764 Information not available 05/25/2022 Have You Recently Traveled Abroad? No MIGRATION.97924 16148 Information not available 05/25/2022 Are You Currently In School? No MIGRATION.91547 79153 Information not available 05/25/2022 Do You Have Any Dietary Restrictions? No MIGRATION.51716 58635 Information not available 05/25/2022 Sex: Male Functional Status Question Answer Note LastModified by Organizat ion Details LastModified Time Do you or have you ever used any other forms of tobacco or nicotine? No MIGRATION.8004661 035 Information not available 05/25/2022 What is your level of alcohol consumption? Occasional MIGRATION.6201060 035 Information not available 05/25/2022 Are you currently employed? Yes Information not available 03/18/2024 Have you been exposed to chemicals or toxins? Not that aware of Information not available 02/26/2025 What is your occupation? [employer] MIGRATION.4013756 035 Information not available 05/25/2022 What is your exercise level? None MIGRATION.4808387 035 Information not available 05/25/2022 Mental Status Question Answer Note LastModified by Organizat ion Details LastModified Time Do you feel stressed (tense, restless, nervous, or anxious, or unable to sleep at night)? [id number] MIGRATION.[id number] 5 Information not available 05/25/2022 Family History Relationship Description Onset Age of this Age Resolved Age Notes LastModified by Organization Details LastModified Time Mother Hypertensive disorder [id number] Not available 05/25/2022 10:42:53 Father Diabetes mellitus MIGRATION.048 [id number] Not available 05/25/2022 10:42:53 Maternal Grandfather Myocardial [...] ICD10 Code Diagnosis IMO Codes Diagnosis Note [id number] Renan Mcbride MD [facility] [place] [address] [place] [address] 09/23/2020 00:00:00 09/23/2020 18:03:49 [id number] Renan Mcbride MD [facility] [place] [address] [place] [address] 10/01/2020 00:00:00 10/01/2020 18:14:56 [id number] Renan Mcbride MD [facility] [place] [address] [place] [address] 10/21/2020 00:00:00 10/21/2020 16:20:48 [id number] Renan Mcbride MD [facility] [place] [address] [place] [address] 11/11/2020 00:00:00 11/11/2020 15:37:32 [id number] Renan Mcbride MD [facility] [place] [address] [place] [address] 12/09/2020 00:00:00 12/09/2020 15:57:38 [id number] Renan Mcbride MD [facility] [place] [address] [place] [address] 01/11/2021 00:00:00 01/11/2021 16:49:32 [id number] Renan Mcbride MD [facility] [place] [address] [place] [address] 02/09/2021 00:00:00 02/09/2021 16:22:54 [id number] Renan Mcbride MD [facility] [place] [address] [place] [address] 04/14/2021 00:00:00 04/14/2021 16:31:53 [id number] Renan Mcbride MD [facility] [place] [address] [place] [address] 04/26/2021 00:00:00 04/26/2021 14:21:03 [id number] Renan Mcbride MD [facility] [place] [address] [place] [address] 05/20/2021 00:00:00 05/20/2021 14:08:04 [id number] Renan Mcbride MD [facility] [place] [address] [place] [address] 08/19/2021 00:00:00 08/19/2021 17:30:18 [id number] Renan Mcbride MD [facility] [place] [address] [place] [address] 09/16/2021 00:00:00 09/16/2021 11:00:17 [id number] Renan Mcbride MD [facility] [place] [address] [place] [address] 10/27/2021 00:00:00 10/27/2021 17:20:15 [id number] Renan Mcbride MD [facility] [place] [address] [place] [address] 05/25/2022 11:50:17 05/25/2022 12:52:03 Hypertensive disorder 89525189 I10 Hyperlipidemia 53642465 E78.5 Gout 10829134 M10.9 Steatotic liver disease 214742865 K76.0 Vitamin D deficiency 347 15585 E55.9 Obesity 595605704 E66.9 Chronic ki dney disease stage 3 027547106 N18.30 [id number] Renan Mcbride MD [facility] [place] [address] [place] [address] 06/22/2022 14:22:56 06/22/2022 15:00:20 Hypertensive disorder 14798823 I10 Hyperlipidemia 94840217 E78.5 Gout 49289042 M10.9 Steatotic liver disease 530840395 K76.0 Vitamin D deficiency 347 92944 E55.9 Obesity 025117883 E66.9 Chronic ki dney disease stage 3 990232452 N18.30 Adult [facility] th examination 030072314 Z00.00 Sleep apnea 69041318 G47 .30 [id number] Renan Mcbride MD [address] [address] 03/13/2023 15:37:47 03/13/2023 16:04:42 Transition of care 0329153136 105 Z75.8 Hypertensive disorder 38 130089 I10 Hyperlipidemia 54909481 E78.5 Gout 27894307 M10.9 Steatotic liver disease 573114311 K76.0 Vitamin D deficiency 347 52047 E55.9 Obesity 173778072 E66.9 Chronic ki dney disease stage 3 006973750 N18.30 resolved Sleep apnea 06672351 G47 .30 [id number] Renan Mcbride MD [address] [address] 04/10/2023 15:23:14 04/10/2023 16:07:33 Hypertensive disorder 04037252 I10 Hyperlipidemia 88926812 E78.5 Gout 35506919 M10.9 Steatotic liver disease 058896551 K76.0 Vitamin D deficiency 347 04990 E55.9 Obesity 563190078 E66.9 Chronic ki dney disease stage 3 221297010 N18.30 resolved Sleep apnea 21666044 G47 .30 Erectile dysfunction 860 935174 F52.21 Trying to conceive [id number] [id number] Z31.9 [id number] Renan Mcbride MD [address] [address] 06/07/2023 13:58:34 06/07/2023 14:37:07 Hypertensive disorder [id number] I10 Hyperlipidemia 62156929 E78.5 Gout 36188026 M10.9 Steatotic liver disease 334546520 K76.0 Vitamin D deficiency 347 95042 E55.9 Obesity 245984901 E66.9 Erectile dysfunction 860 380108 F52.21 Adult [facility] examination [id number] Z00.00 [id number] Renan Mcbride MD [address] [address] 01/29/2024 15:30:56 01/29/2024 16:40:12 Adult health examination [id number] Z00.00 Hypertensive disorder 38 680514 I10 Hyperlipidemia 79858185 E78.5 Gout 46238172 M10.9 Steatotic liver disease 362288990 K76.0 Vitamin D deficiency 347 39132 E55.9 Obesity 836695475 E66.9 Erectile dysfunction 860 854507 F52.21 [id number] Dayday Stanford MD [facility] [address] [place] [phone] 03/18/2024 10:46:36 03/25/2024 11:36:16 Obstructive sleep apnea syndrome 89298517 G47.33 G47.30 G47.36 G47.61 [id number] Renan Mcbride MD [address] [address] 09/03/2024 16:20:20 09/03/2024 16:55:01 Hypertensive disorder 18217923 I10 Hyperlipidemia 10951941 E78.5 Adult [facility] th examination 565692275 Z00.00 Gout 75724410 M10.9 Steatotic liver disease 665388655 K76.0 Vitamin D deficiency 347 82828 E55.9 Obesity 725315722 E66.9 Erectile dysfunction 860 909110 F52.21 Obstructiv e sleep apnea syndrome 33035794 G47.33 267604 Trying to conceive 59301 9001 Z78.9 [id number] [id number] Dayday Stanford MD [facility] [address] [place] [phone] 11/27/2024 12:16:17 11/28/2024 15:32:38 Obstructive sleep apnea syndrome 18987385 G47.33 262614 [id number] Dayday Stanford MD [address] [address] 02/26/2025 14:33:31 02/28/2025 16:38:02 Obstructive sleep apnea syndrome 69965130 G47.33 [id number] Health Concerns Section Related Observation LastModified by Organization Detai ls LastModified Time None Recorded Concern Status LastModified by Organization Details LastModified Time None Recorded Advance Directives Directive N: Payers Insurance Date Sequence Insurance Name Policy Number Policy Hutchison Covered Member ID Hutchison Member ID Guarantor Name 02/26/2025 1 [facility] - DOS PRIOR TO 2024 (MEDICAID REPLACEMENT - HMO) [id number] Amari Finnegan [id number] Amari Finnegan 02/26/2025 1 [facility] - DOS ON OR AFTER 2024 (MEDICAID REPLACEMENT - HMO) [id number] Amari Finnegan [id number] Amari Finnegan Notes Date Note Type Note Provider Name and Address Organization Details Recorded Time 01/29/2024 text/html Pt is here for f/u on his meds and chronic conditions. Doing [...] sleep study yet. Pt was admitted to [facility] 2 times in last 2 months. Pt says his BP was high at that time. Pt has seen Cardio in the hospital and few weeks later, he got angiogram with them and it was good as per pt. Pt is f/u with Cardio at [facility]. Renan Mcbride MD [address] [place] [address], [phone], [facility] [employer] 01/29/2024 16:27:25 03/18/2024 text/html Primary care/Referring provider: Renan Mcbride MD During the [facility] home sleep study on 03/12/24, AHI = [...] Sleepwalking: no Sleep crying: no Bedwetting: no Tongue/lip/gum/cheek biting: no Sleeping with open mouth: yes [...] moderate chance of dozing. Dayday Stanford MD [address] [place] [address], [place] [address], [place], [phone], [facility] [employer] 03/18/2024 11:48:44 09/03/2024 text/html Pt is here for his annual exam, med refill and wants to get semen testing done for him. Pt is not taking his meds regularly and he is out of few meds for last several months. Denies any s/e from meds. Last visit in 02/17, he has not gone for any labs yet. Pt is non-compliant with his visits. Pt was admitted to [facility] 2 times in the past. Pt says his BP was high at that time. Pt has seen Cardio in the hospital and few weeks later, he got angiogram with them and it was good as per pt. Pt is f/u with Cardio at [facility]. Renan Mcbride MD [address] [facility], [facility] [address], [place], [address], [place] [facility] [employer] [facility] 09/03/2024 17:10:05 11/27/2024 text/html Primary care/Referring provider: Renan Mcbride MD During the [facility] home sleep study on 03/12/24, AHI = 35, supine AHI = 36. During the [facility] titration sleep study on 11/18/24, sleep onset [...] condensation with water. The patient wears a [employer] small Viraj nasal mask without chin strap. There is no [...] AND CHANCE OF DOZINGSitting and reading - 2Watching television - 2Sitting inactive in a public place (e.g. a theater or meeting) - 0As a passenger in a car for an hour without a break - 1Lying down to rest in the afternoon when circumstances permit - 2Sitting and talking to someone - 0Sitting quietly after lunch without alcohol - 0In a car, while stopped for a few minutes in the traffic - 0TOTAL SCORE 7Subjectively, patient has a slight chance of dozing. Dayday Stanford MD [address] [place] [address], [phone], [facility] [employer] 11/27/2024 12:52:41 02/26/2025 text/html Primary care/Referring provider: Renan Mcbride MD CC: I cannot sleep with the full face CPAP mask on my face. During the [facility] home sleep study on 03/12/24, AHI = 35, supine AHI = 36. During the [facility] titration sleep study on 11/18/24, sleep onset [...] condensation with water. The patient wears a [employer] extra small Viraj full face mask without [...] slight chance of dozing. Dayday Stanford MD [address] [place] [address], [phone], [place] [facility] [employer] [facility] 02/26/2025 15:27:53
== END 2025-03-16 08:57 | disposition left against medical advice (07) ==
PROVIDERS: PCP Family Medicine
DX: M25.551 Pain in right hip (principal)
CPT/HCPCS: 99199